=== PATIENT | female | born 1945 | race African-American/Black ===

== ENCOUNTER → 2016-12-28 | Day surgery (SDC) | payer MEDICARE, OTHER ==
[~2016-12-28] MED LIST: CARV6.25 PO; CARV6.252 PO; CHOL5000 PO; CIPR250T2 PO; ECOT81TA2 PO; EMOLLOT TOPICAL; GABA400 PO; GEOD80CA PO; LACT20SO4 PO; LACTATED RINGER'S 1000 ML INJ 1,000 ML ONE; LIDOCAINE 1%/EPINEPHrine 1:100,000 SOLN 30 ML VIAL ONE; LISI10 PO; LISI10TA3 PO; NEUR400C; NIFE60TA8 PO; OMEP10CA; OMEP20TA39 PO; ONDANSETRON HCL 4 MG/2 ML VIAL IV PUSH ONE; PROPOFOL 200 MG/20 ML AMP IV ONE; ZIPR1CAP12; ceFAZolin 2 GM PREMIX 50 ML ONE
--- NOTE | 2016-12-28 12:25 | TN ---
cc: MARIANNE RICHARDSON M.D. DATE OF SURGERY: 12/28/2016 PREOPERATIVE DIAGNOSIS 1. Right breast mammographic microcalcifications. 2. History of left breast cancer. POSTOPERATIVE DIAGNOSIS 1. Right breast mammographic microcalcifications. 2. History of left breast cancer. PROCEDURE Right breast needle-localized lumpectomy. SURGEON Dr. Marianne Richardson ANESTHESIA General with laryngeal mask. 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 She was found to have new clustered microcalcifications which were indeterminate in the right breast. They were unable to perform stereotactic biopsy due to the proximity of the microcalcifications to her skin. Right breast needle-localized lumpectomy was recommended. INTRAOPERATIVE FINDINGS Successful removal of microcalcifications as seen on specimen mammography. Short stitch was placed at the superior anterior border of the specimen and a long stitch in the lateral posterior border. ESTIMATED BLOOD LOSS Minimal. DESCRIPTION OF PROCEDURE IN DETAIL The patient was identified as Shirlene Mackenzie, taken to the operating room and placed in supine position following needle localization of the right breast. Sequential compression devices were placed on bilateral lower extremities. Following induction of adequate general anesthesia with a laryngeal mass the right breast was prepped and draped in the usual sterile fashion with Betadine. The proposed superior periareolar incision was made with a marking pen. A timeout procedure was performed. Following completion of the timeout procedure to everyone's satisfaction within the room, 1% lidocaine with epinephrine was injected for local anesthetic. The incision was carried out with a scalpel. Hemostasis was controlled with electrocautery. Dissection continued posteriorly and superiorly towards the localization needle at the level of the skin entry. The localization needle was divided at the level of the skin, brought in the surgical wound. A generous portion of breast tissue was removed surrounding the localization needle, marked with a silk suture and sent for imaging as discussed above. The wound was irrigated copiously with saline. Bleeding points were controlled with electrocautery. Once the wound was ensured to be dry, the remaining local anesthetic was placed within the wound and the wound was closed using 3-0 Vicryl within the breast tissue and in the subcutaneous tissue and then 4-0 Monocryl in a subcuticular position in the skin. Dressings were applied with Mastisol, half-inch brown Steri-Strips, gauze and Tegaderm. Dr. Miller had called indicating the microcalcifications of concern were within the specimen and the specimen was sent to pathology. MD CAIT Gil/CHIO /12:06 PM /12:16 PM
== END | disposition home or self-care (01) ==
LOC: ESDC 08:56
PROVIDERS: ATTEND Surgery Trauma Surgery
DX: D24.1 Benign neoplasm of right breast (principal); Z85.3 Personal history of malignant neoplasm of breast
CPT/HCPCS: 00400; 19125; 88307; J0690; J2405; J3010; J7120

== ENCOUNTER 2017-03-29 18:54 | Inpatient (IN) | payer MEDICARE, MEDICAID ==
[~2017-03-29] VITALS: Ht 165.1 cm; Wt 68.0 kg
[~2017-03-29 18:54] MED LIST changes: -CARV6.252 PO; -CHOL5000 PO; -EMOLLOT TOPICAL; -LACTATED RINGER'S 1000 ML INJ 1,000 ML ONE; -LIDOCAINE 1%/EPINEPHrine 1:100,000 SOLN 30 ML VIAL ONE; -LISI10TA3 PO; -NEUR400C; -NIFE60TA8 PO; -OMEP10CA; -ONDANSETRON HCL 4 MG/2 ML VIAL IV PUSH ONE; -PROPOFOL 200 MG/20 ML AMP IV ONE; -ZIPR1CAP12; -ceFAZolin 2 GM PREMIX 50 ML ONE
[2017-03-29 18:55] VITALS: BP 166/93; PULSE 80; RESP 18; TEMP 98.3; O2SAT 96
[2017-03-29] MEDS ORDERED: SODIUM CHLOR 0.9% 1000 ML INJ 1,000 ML IV SCH (18:58)
[2017-03-29] MEDS ORDERED: SODIUM CHLORIDE 0.9% FLUSH 5 ML FLUSH IV FLUSH PRN (19:00)
[2017-03-29 19:04] VITALS: O2SAT 96
--- NOTE | 2017-03-29 19:05 | PD ---
HPI Chief Complaint: Altered Mental Status Time Seen by Provider: 18:58 Travel History International Travel<30 days: No Contact w/Intl Traveler<30days: No Traveled to known affect area: No History of Present Illness HPI 71 year-old woman, presents to the emergency department brought in by EMS for altered mental status. Patient was reportedly found down at home, altered. Last seen normal around 11 AM. Patient's been confused, GCS about 13, complaining of pain in her legs. No other history is available. History Past Medical History Narrative Medical Review previous records shows a history of: Rheumatoid arthritis Psychosis, psychiatric disease Breast cancer, left mastectomy Hypertension GERD Menopausal: Yes Social History Alcohol Use: No Tobacco Use: Yes (11/02 PPD) Allergies-Medications (Allergen,Severity, Reaction): Coded Allergies: No Known Allergies (Verified , 07/07/16) Reported Meds & Prescriptions Reported Meds & Active Scripts Active Ciprofloxacin Hcl (Ciprofloxacin HCl) 250 Mg Tab 500 Mg PO BID 3 Days Prinivil 10 mg (Lisinopril) 10 Mg Tab 10 Mg PO DAILY 30 Days Coreg 6.25 mg (Carvedilol) 6.25 Mg Tab 12.5 Mg PO BID Ecotrin (Aspirin) 81 Mg Tabec 81 Mg PO DAILY Reported Lactulose 30 Ml Syrp 15 Ml PO QID Geodon (Ziprasidone) 80 Mg Cap 80 Mg PO BID Hm Omeprazole (Omeprazole) 20 Mg Tab 20 Mg PO BID Neurontin (Gabapentin) 400 Mg Cap 400 Mg PO TID Review of Systems ROS Limitations: Clinical Condition Physical Exam Narrative GENERAL: 71 year-old woman, poorly responsive, will answer some questions, consider eyes closed. SKIN: Focused skin assessment warm/dry. Decreased skin turgor. HEAD: No evidence of trauma.. EYES: Pupils equal and round. No scleral icterus. No injection or drainage. ENT: No nasal bleeding or discharge. Mucous membranes pink and moist. NECK: Trachea midline. No JVD. CARDIOVASCULAR: Regular rate and rhythm. No murmur appreciated. RESPIRATORY: No accessory muscle use. Clear to auscultation. Breath sounds equal bilaterally. GASTROINTESTINAL: Abdomen is a little bit distended but soft, no grimace to deep palpation or evidence of tenderness. MUSCULOSKELETAL: No obvious deformities. No edema. NEUROLOGICAL: Decreased alertness, eyes cold, no obvious facial asymmetry. Moves all extremities. Motor tones a little bit increased throughout. No tremor. Speech is slow but not obviously dysarthric or aphasic. Data Data Last Documented VS Vital Signs Date Time Temp Pulse Resp B/P Pulse Ox O2 Delivery O2 Flow Rate FiO2 03/29/17 18:55 80 18 166/93 96 MDM Medical Decision Making Medical Screen Exam Complete: Yes Emergency Medical Condition: Yes Differential Diagnosis Stroke, infection, bleed, dehydration, overdose, other Narrative Course Medical decision making INITIAL: 71-year-old presents emergent part altered mental status, being found down. EMS reports patient is normally ambulatory, oriented, and now is confused and unable to walk. Was last seen normal about 8 hours ago. Review of records shows a history of psychiatric disease, with dementia and confusion in the past. She has a history of breast cancer status post mastectomy. She's had pancytopenia before. We'll check labs, CT, x-ray, ABG, IV fluid resuscitation, likely admission. Patient signed out the oncoming physician at 7 PM for follow-up of diagnostic testing, repeat evaluation and disposition. Marcio Jeronimo MD March 29, 2017 19:05
--- NOTE | 2017-03-29 19:08 | PD ---
Physical Exam Narrative General: The patient is a well-developed well-nourished female who arrives in no acute distress. The patient has garbled speech on initial evaluation and is drowsy. The patient has poor dentition which could be affecting her speech. The patient does on my arrival to the room reports that she has right ankle pain. She reports that she fell 2 days ago. Head and Neck exam: Head is normocephalic atraumatic. Eyes: The patient is uncooperative with extraocular motion testing. The patient 's pupils are 1-2 mm bilaterally. Nose: Midline septum with pink mucous membranes Mouth: Dentition unremarkable. Moist mucus membranes. Posterior oropharynx is not erythematous. No tonsillar hypertrophy. Uvula midline. Airway patent. Neck: No palpable lymphadenopathy. No nuchal rigidity. No thyromegaly. Cardiovascular: Regular rate and rhythm without murmurs, gallops, or rubs. Lungs: Clear to auscultation bilaterally. No wheezes, rhonchi, or rales. Abdomen: Soft, without tenderness to palpation in all 4 quadrants of the abdomen. No guarding, rebound, or rigidity. Normal bowel sounds are audible. No tenderness on palpation of McBurney's point. Extremities: No clubbing or cyanosis. The patient has trace pedal edema on the left, 1+ on the right with tenderness on palpation of the distal medial and lateral malleolus. There is no crepitus on palpation. No obvious deformity. No ligament laxity. 2+ pulses in all 4 extremities. Back: No costovertebral angle tenderness to palpation. Neurologic Exam: The patient is drowsy on examination. The patient is uncooperative with formal neurologic testing. The patient has no obvious facial asymmetry. The patient is able to move all extremities equally without any focal findings. Skin Exam: No rash noted. Intact skin that is warm and dry. Data Data Last Documented VS Vital Signs Date Time Temp Pulse Resp B/P Pulse Ox O2 Delivery O2 Flow Rate FiO2 03/29/17 19:04 96 Room Air 03/29/17 18:55 98.3 80 18 166/93 Orders Electrocardiogram (03/29/17 18:58) Complete Blood Count With Diff (03/29/17 18:58) Comprehensive Metabolic Panel (03/29/17 18:58) Prothrombin Time / Inr (Pt) (03/29/17 18:58) Act Partial Throm Time (Ptt) (03/29/17 18:58) Troponin I (03/29/17 18:58) Thyroid Stimulating Hormone (03/29/17 18:58) Urinalysis - C+S If Indicated (03/29/17 18:58) Lactic Acid Sepsis Protocol (03/29/17 18:58) Blood Culture (03/29/17 18:58) Chest, Single Ap (03/29/17 18:58) Ct Brain W/O Iv Contrast(Rout) (03/29/17 18:58) Blood Glucose (03/29/17 18:58) Ecg Monitoring (03/29/17 18:58) Iv Access Insert/Monitor (03/29/17 18:58) Oximetry (03/29/17 18:58) Urinary Catheter Insert/Apply (03/29/17 18:58) Sodium Chloride 0.9% Flush (Ns Flush) (03/29/17 19:00) Sodium Chlor 0.9% 1000 Ml Inj (Ns 1000 M (03/29/17 18:58) Arterial Blood Gas (Abg) (03/29/17 ) Creatine Kinase (Cpk) (03/29/17 19:02) Pelvis, Ap Only (Routine) (03/29/17 ) Ankle, Complete ([id number]) (03/29/17 19:17) Alcohol (Ethanol) (03/29/17 21:17) Admit Order (Ed Use Only) (03/29/17 21:20) Labs Laboratory Tests Test 03/29/17 03/29/17 19:13 19:37 White Blood Count 3.2 TH/MM3 Red Blood Count 3.83 MIL/MM3 Hemoglobin 11.7 GM/DL Hematocrit 35.6 % Mean Corpuscular Volume 93.0 FL Mean Corpuscular Hemoglobin 30.6 PG Mean Corpuscular Hemoglobin 33.0 % Concent Red Cell Distribution Width 14.8 % Platelet Count 199 TH/MM3 Mean Platelet Volume 7.5 FL Neutrophils (%) (Auto) 72.6 % Lymphocytes (%) (Auto) 19.6 % Monocytes (%) (Auto) 4.6 % Eosinophils (%) (Auto) 2.8 % Basophils (%) (Auto) 0.4 % Neutrophils # (Auto) 2.3 TH/MM3 Lymphocytes # (Auto) 0.6 TH/MM3 Monocytes # (Auto) 0.1 TH/MM3 Eosinophils # (Auto) 0.1 TH/MM3 Basophils # (Auto) 0.0 TH/MM3 CBC Comment DIFF FINAL Differential Comment Prothrombin Time 10.9 SEC Prothromb Time International 1.0 RATIO Ratio Activated Partial 27.2 SEC Thromboplast Time Urine Color LIGHT-YELLOW Urine Turbidity CLEAR Urine pH 6.5 Urine Specific [place] 1.009 Urine Protein 30 mg/dL Urine Glucose (UA) 70 mg/dL Urine Ketones NEG mg/dL Urine Occult Blood NEG Urine Nitrite NEG Urine Bilirubin NEG Urine Urobilinogen LESS THAN 2.0 MG/DL Urine Leukocyte Esterase NEG Urine RBC 1 /hpf Urine WBC 1 /hpf Urine Mucus FEW /lpf Microscopic Urinalysis Comment CATH-CULT NOT IND Sodium Level 139 MEQ/L Potassium Level 3.0 MEQ/L Chloride Level 106 MEQ/L Carbon Dioxide Level 25.0 MEQ/L Anion Gap 8 MEQ/L Blood Urea Nitrogen 11 MG/DL Creatinine 0.99 MG/DL Estimat Glomerular Filtration 67 ML/MIN Rate Random Glucose 189 MG/DL Lactic Acid Level 2.5 mmol/L Calcium Level 8.2 MG/DL Total Bilirubin 0.2 MG/DL Aspartate Amino Transf 21 U/L (AST/SGOT) Alanine Aminotransferase 16 U/L (ALT/SGPT) Alkaline Phosphatase 110 U/L Total Creatine Kinase 175 U/L Troponin I LESS THAN 0.02 NG/ML Total Protein 7.9 GM/DL Albumin 3.3 GM/DL Thyroid Stimulating Hormone 0.406 uIU/ML 3rd Gen Ethyl Alcohol Level LESS THAN 3 MG/DL Urine Opiates Screen NEG Urine Barbiturates Screen NEG Urine Amphetamines Screen NEG Urine Benzodiazepines Screen NEG Urine Cocaine Screen NEG Urine Cannabinoids Screen NEG Blood Gas Puncture Site RT RADIAL Blood Gas Patient Temperature 98.6 Blood Gas HCO3 23 mmol/L Blood Gas Base Excess -0.9 mmol/L Blood Gas Oxygen Saturation 92 % Arterial Blood pH 7.39 Arterial Blood Partial 39 mmHg Pressure CO2 Arterial Blood Partial 77 mmHG Pressure O2 Arterial Blood Oxygen Content 14.3 Vol % Arterial Blood 2.3 % Carboxyhemoglobin Arterial Blood Methemoglobin 0.7 % Blood Gas Hemoglobin 10.9 G/DL Oxygen Delivery Device [facility] Medical Record Reviewed: Yes Supervised Visit with [facility]: No Interpretation(s) Last Impressions Ankle X-Ray 03/29/[id number] Signed Impressions: Service Date/Time: Wednesday, March 29, 2017 19:23 - CONCLUSION: 1. Mild soft tissue swelling involving the medial and lateral malleoli. 2. No acute fracture or dislocation. 3. Plantar calcaneal spur. Kashif Varela MD Head CT 03/29/171857 Signed Impressions: Service Date/Time: Wednesday, March 29, 2017 20:21 - CONCLUSION: 1. Ventriculomegaly suggesting moderate central cerebral atrophy versus hydrocephalus,. Clinical correlation is recommended. 2. Moderate periventricular and subcortical white matter small vessel ischemic changes bilaterally. 3. No acute infarct, acute hemorrhage, mass effect or extra- axial fluid collections. Kashif Varela MD Chest X-Ray 03/29/171857 Signed Impressions: Service Date/Time: Wednesday, March 29, 2017 19:06 - CONCLUSION: 1. Mild cardiomegaly. 2. No acute focal pulmonary infiltrate or pulmonary vascular congestion. 3. Degenerative changes and scoliosis of the thoracic spine. Kashif Varela MD Pelvis X-Ray 03/29/17 0000 Signed Impressions: Service Date/Time: Wednesday, March 29, 2017 19:16 - CONCLUSION: 1. No acute fracture or dislocation of the bony pelvis. 2. Degenerative changes and scoliosis of the lumbar spine. Kashif Varela MD Lower Extremity Ultrasound 03/29/17 0000 Signed Impressions: Service Date/Time: Wednesday, March 29, 2017 23:41 - CONCLUSION: Normal examination. Cameron Angelo MD Narrative Course During the course of the patients emergency department visit, the patients history, examination, and differential diagnosis were reviewed with the patient. The patient had IV access obtained and blood work sent for analysis. The patient's case was checked out to me by Dr. Jeronimo at the conclusion of his shift. The patient was placed on a teletypesetter monitor with oximetry and blood pressure monitoring. An EKG was done on arrival. The patient's EKG shows a sinus rhythm heart rate is 70, QRS duration is 97 ms, QTc is [address]-T wave abnormalities, T-wave inversions in leads V1, V2, V3. No acute ST segment elevation is noted. The patient was initially provided normal saline a 1 L IV fluid bolus. The patients laboratory studies were reviewed and remarkable for an ABG on arrival that shows a pH of 7.392, PCO2 39.3, PO2 76.8 with a bicarbonate 23.4, base excess -0.9, hemoglobin 10.9. Radiology studies were reviewed and remarkable for a right ankle x-ray this is soft tissue swelling, no acute bony abnormality, pelvic x-ray shows no acute bony abnormality, chest x-ray shows cardiomegaly no other acute abnormality, CT scan of the brain shows ventriculomegaly, which could be related to cortical atrophy, versus normal pressure hydrocephalus. Given the patient's altered mentation and neurology consultation will be placed as an inpatient. The patients results were discussed with the patient, including the plan of care. I explained that further testing and/ or monitoring is indicated based on the patients history, examination, and/ or laboratory findings. Therefore, I recommended admission for additional evaluation. The patient expressed understanding and was agreeable with this plan. The patient was admitted to the hospital in stable condition and sent to a bed under the care of the [facility]. Physician Communication Physician Communication The patient's case was discussed with Dr. Gomez who did agree to admit the patient for further evaluation and treatment at this time. Diagnosis Primary Impression: Altered mental status Qualified Code: R41.0 - Disorientation Admitting Information Admitting Physician Requests: Admit Scripts Unable to Obtain Active Prescriptions or Reported Meds Magalys Hill MD March 29, 2017 19:08
[2017-03-29 19:33] LABS: AUTOMATED NEUTROPHIL # 2.3 TH/MM3 (1.8-7.7); BASOPHIL % 0.4 % (0.0-2.0); EOSINOPHIL # 0.1 TH/MM3 (0-0.4); EOSINOPHIL % 2.8 % (0.0-4.0); HEMATOCRIT 35.6 % (35.0-46.0); HEMO FLAGS DIFF FINAL; LYMPH % 19.6 % (9.0-44.0); LYMPHOCYTE # 0.6 TH/MM3 (1.0-4.8); MEAN CORPUSCULAR HEMOGLOBIN 30.6 PG (27.0-34.0); MONO % 4.6 % (0.0-8.0); NEUT % 72.6 % (16.0-70.0); PLATELET COUNT 199 TH/MM3 (150-450); RED BLOOD COUNT 3.83 MIL/MM3 (4.00-5.30); RED CELL DISTRIBUTION WIDTH 14.8 % (11.6-17.2); WHITE BLOOD COUNT 3.2 TH/MM3 (4.0-11.0)
[2017-03-29 19:43] LABS: BLOOD GAS BASE EXCESS -0.9 mmol/L (-2-2); BLOOD GAS CARBOXYHEMOGLOBIN 2.3 % (0-4); BLOOD GAS HCO3 23 mmol/L (22-26); BLOOD GAS METHEMOGLOBIN 0.7 % (0-2); BLOOD GAS O2 HGB SATURATION 92 % (90-100); BLOOD GAS OXYGEN CONTENT 14.3 Vol % (12.0-20.0); BLOOD GAS PCO2 39 mmHg (38-42); BLOOD GAS PO2 77 mmHG (61-120); BLOOD GAS TOTAL HGB 10.9 G/DL (12.0-16.0); CRITICAL VALUE NO; DRAW SITE RT RADIAL; NUMBER OF ARTERIAL PUNCTURES 1; OXYGEN DEVICE ROOM AIR; STAT YES; TEMP CORR TO 98.6; ULNAR PULSE PRESENT
[2017-03-29 19:46] LABS: APTT (PATIENT) 27.2 SEC (24.3-30.1); PROTHROMBIN TIME - PATIENT 10.9 SEC (9.8-11.6)
[2017-03-29 19:52] LABS: ANION GAP 8 MEQ/L (5-15); AST (GOT) 21 U/L (15-37); BLOOD UREA NITROGEN 11 MG/DL (7-18); CHLORIDE 106 MEQ/L (98-107); GLOMERULAR FILTRATION RATE 67 ML/MIN (>89); SODIUM (NA) 139 MEQ/L (136-145)
[2017-03-29 19:55] LABS: BLOOD, URINE NEG (NEG); GLUCOSE,URINE 70 mg/dL (NEG); KETONE, URINE NEG (NEG); MUCUS URINE FEW /lpf (OCC); NITRITE,URINE NEG (NEG); PH, URINE 6.5 (5.0-8.5); URINE COLOR LIGHT-YELLOW (YELLW/STRAW)
[2017-03-29 19:56] LABS: COMMENT (UR) CATH-CULT NOT IND; CULTURE IF INDICATED CATH CULTURE NOT IND
[2017-03-29 20:02] LABS: ALKALINE PHOSPHATASE 110 U/L (45-117); ALT (GPT) 16 U/L (10-53); TOTAL BILIRUBIN ADULT 0.2 MG/DL (0.2-1.0)
--- NOTE | 2017-03-29 20:22 | RADRPT ---
EXAM DATE/TIME: 03/29/2017 19:06 [facility] COMPARISON: CHEST SINGLE AP, July 07, 2016, 10:47. INDICATIONS : Fall. MEDICAL HISTORY : None. SURGICAL HISTORY : None. ENCOUNTER: Initial ACUITY: 1 day PAIN SCORE: 0/10 LOCATION: Bilateral chest FINDINGS: The heart is mildly enlarged. The pulmonary vascular pattern is normal. The lungs are clear. Degen erative changes and scoliosis of the thoracic spine are noted. CONCLUSION: 1. Mild cardiomegaly. 2. No acute focal pulmonary infiltrate or pulmonary vascular congestion. 3. Degenerative changes and scoliosis of the thoracic spine. Kashif Varela MD on March 29, 2017 at 20:16 Board Certified Radiologist. This report was verified electronically.
--- NOTE | 2017-03-29 20:23 | RADRPT ---
EXAM DATE/TIME: 03/29/2017 19:16 [facility] COMPARISON: PELVIS AP ONLY, July 07, 2016, 10:51. INDICATIONS : Fall. MEDICAL HISTORY : None. SURGICAL HISTORY : None. ENCOUNTER: Initial ACUITY: 1 day PAIN SCORE: 0/10 LOCATION: Bilateral pelvis FINDINGS: There is no acute fracture or dislocation of the bony pelvis. Old healed fractures of the left infer ior and superior pubic rami are noted. Degenerative changes and scoliosis of the lumbar spine are no rod. CONCLUSION: 1. No acute fracture or dislocation of the bony pelvis. 2. Degenerative changes and scoliosis of the lumbar spine. Kashif Varela MD on March 29, 2017 at 20:17 Board Certified Radiologist. This report was verified electronically.
--- NOTE | 2017-03-29 20:25 | RADRPT ---
EXAM DATE/TIME: 03/29/2017 19:23 [facility] COMPARISON: No previous studies available for comparison. INDICATIONS : Fall. MEDICAL HISTORY : None. SURGICAL HISTORY : None. ENCOUNTER: Initial ACUITY: 1 day PAIN SCORE: 0/10 LOCATION: Right ankle FINDINGS: Mild soft tissue swelling is noted involving the medial and lateral malleoli. There is no acute frac ture or dislocation. Plantar calcaneal spur is noted. CONCLUSION: 1. Mild soft tissue swelling involving the medial and lateral malleoli. 2. No acute fracture or dislocation. 3. Plantar calcaneal spur. Kashif Varela MD on March 29, 2017 at 20:19 Board Certified Radiologist. This report was verified electronically.
--- NOTE | 2017-03-29 20:36 | RADRPT ---
EXAM DATE/TIME: 03/29/2017 20:21 [facility] COMPARISON: MRI BRAIN W/O CONTRAST, July 08, 2016, 10:34. CT BRAIN W/O CONTRAST, July 07, 2016, 11:05. INDICATIONS : Altered mental status. RADIATION DOSE: 37.53 CTDIvol (mGy) MEDICAL HISTORY : Cardiovascular disease. Hypertension. Carcinoma, breast. SURGICAL HISTORY : None. ENCOUNTER: Initial ACUITY: 1 day PAIN SCALE: 5/10 LOCATION: Bilateral abdomen. TECHNIQUE: Multiple contiguous axial images were obtained of the head. Using automated exposure control and adj ustment of the mA and/or kV according to patient size, radiation dose was kept as low as reasonably a chievable to obtain optimal diagnostic quality images. FINDINGS: The ventricles remain prominent consistent with central cerebral atrophy versus hydrocephalus. Moderate periventricular and subcortical white matter small vessel ischemic changes a re again noted. There is no acute hemorrhage, acute infarct, mass effect or extra-axial fluid collec tions. The bone windows are unremarkable. CONCLUSION: 1. Ventriculomegaly suggesting moderate central cerebral atrophy versus hydrocephalus,. Clinical cor relation is recommended. 2. Moderate periventricular and subcortical white matter small vessel ischemic changes bilaterally. 3. No acute infarct, acute hemorrhage, mass effect or extra-axial fluid collections. Kashif Varela MD on March 29, 2017 at 20:28 Board Certified Radiologist. This report was verified electronically.
[2017-03-29 21:25] LABS: LACTIC ACID GHOST NOT REPORTABLE
[2017-03-29] MEDS ORDERED: POTASSIUM CHLORIDE 25 MEQ EFFERVESCENT TAB PO ONE (21:45)
[2017-03-29] MEDS ORDERED: NALOXONE HCL 0.4 MG/ML AMP IV PRN (21:45)
[2017-03-29 22:02] VITALS: BP 147/81; PULSE 60; RESP 16; O2SAT 98
--- NOTE | 2017-03-29 22:23 | HHI.HP ---
[facility] Unknown Admission Diagnosis AMS, ventriculomegaly Diagnoses: Chief Complaint: AMS, fall Travel History International Travel<30 Days: No Contact w/Intl Traveler <30 Da: No Traveled to Known Affected Are: No History of Present Illness Written by Marixa Manuel, acting as scribe for Dr. Gomez on 03/29/17 at 22: 23. This is a 71 year old female patient with a past medical history which includes : rheumatoid arthritis, lupus, anxiety/depression/psychiatric illness on [facility] , breast cancer s/p left mastectomy, HTN, GERD, neuropathy. Patient is alert and oriented to person and place only, poor historian. Information gathered from patient as well as prior charting. Patient reports her sister brought her to the hospital because she wasn't doing well, but unable to elaborate. Per ER report patient's sister found her on the floor noted to be confused. Patient does not recall being on the floor. Does not recall falling. Per ER documentation patient was last seen normal around 11 AM 03/29/17. Patient denies chest pain, SOB, N/V/D, fevers, chill, cough congestion, blood in stool, increased urinary frequency, dysuria. Glucose upon arrival 189. Patient notes to be drowsy drifting off to sleep through out H&P process Review of Systems ROS Limitations: Poor Historian Except as stated in HPI: all other systems reviewed are Neg Past Family Social History Past Medical History Obtained from EMR: rheumatoid arthritis lupus anxiety/depression/psychiatric illness on [facility] breast cancer s/p left mastectomy GERD neuropathy HTN Breast cancer Past Surgical History Left breast mastectomy hernia repair with mesh Reported Medications Active Prescriptions or Reported Medications Unobtainable Allergies: Coded Allergies: No Known Allergies (Verified , 03/29/17) Active Ordered Medications Current Medications Medications (Trade) Dose Ordered Sig/Angela Route Start Time Stop Time Status Last Admin (NS Flush) 2 ml UNSCH PRN IV FLUSH 03/29/17 21:45 (NS Flush) 2 ml BID IV FLUSH 03/30/17 09:00 (Narcan Inj) 0.4 mg UNSCH PRN IV 03/29/17 21:45 Family History Reviewed, patient denies any significant medical history in the family Social History Lives with her sister Smokes tobacco since her 20s, 1/2 PPD Denies alcohol or illicit drug use Physical Exam Vital Signs Vital Signs Date Time Temp Pulse Resp B/P Pulse Ox O2 Delivery O2 Flow Rate FiO2 03/29/17 22:02 60 16 147/81 98 Nasal Cannula 2 03/29/17 19:04 96 Room Air 03/29/17 18:55 98.3 80 18 166/93 96 Physical Exam GENERAL: This is a well-nourished, well-developed patient, A& O to person and place only drowsy drifts off to sleep during H&P process HEAD: Atraumatic. Normocephalic. No temporal or scalp tenderness. EYES: Extraocular motions intact. No scleral icterus. No injection or drainage. CARDIOVASCULAR: Regular rate and rhythm without murmurs, gallops, or rubs. RESPIRATORY: Clear to auscultation. Breath sounds equal bilaterally. No wheezes , rales, or rhonchi. GASTROINTESTINAL: Abdomen soft, non-tender, nondistended. No guarding. MUSCULOSKELETAL: No calf tenderness. Negative Homans sign bilaterally. Right ankle edema medial malleolus area. R calk trace edema >L NEUROLOGICAL: Able to awoke to voice, oriented to person and place only. Drifts to sleep during interview process. Motor and sensory grossly within normal limits. 4 out of 5 muscle strength in all muscle groups. soft speech. Laboratory Laboratory Tests Test 03/29/17 03/29/17 03/29/17 19:13 19:37 21:29 White Blood Count 3.2 Red Blood Count 3.83 Hemoglobin 11.7 Hematocrit 35.6 Mean Corpuscular Volume 93.0 Mean Corpuscular Hemoglobin 30.6 Mean Corpuscular Hemoglobin 33.0 Concent Red Cell Distribution Width 14.8 Platelet Count 199 Mean Platelet Volume 7.5 Neutrophils (%) (Auto) 72.6 Lymphocytes (%) (Auto) 19.6 Monocytes (%) (Auto) 4.6 Eosinophils (%) (Auto) 2.8 Basophils (%) (Auto) 0.4 Neutrophils # (Auto) 2.3 Lymphocytes # (Auto) 0.6 Monocytes # (Auto) 0.1 Eosinophils # (Auto) 0.1 Basophils # (Auto) 0.0 CBC Comment DIFF FINAL Differential Comment Prothrombin Time 10.9 Prothromb Time International 1.0 Ratio Activated Partial 27.2 Thromboplast Time Urine Color LIGHT-YELLOW Urine Turbidity CLEAR Urine pH 6.5 Urine Specific Davidson 1.009 Urine Protein 30 Urine Glucose (UA) 70 Urine Ketones NEG Urine Occult Blood NEG Urine Nitrite NEG Urine Bilirubin NEG Urine Urobilinogen LESS THAN 2.0 Urine Leukocyte Esterase NEG Urine RBC 1 Urine WBC 1 Urine Mucus FEW Microscopic Urinalysis Comment CATH-CULT NOT IND Sodium Level 139 Potassium Level 3.0 Chloride Level 106 Carbon Dioxide Level 25.0 Anion Gap 8 Blood Urea Nitrogen 11 Creatinine 0.99 Estimat Glomerular Filtration 67 Rate Random Glucose 189 Lactic Acid Level 2.5 2.5 Calcium Level 8.2 Total Bilirubin 0.2 Aspartate Amino Transf 21 (AST/SGOT) Alanine Aminotransferase 16 (ALT/SGPT) Alkaline Phosphatase 110 Total Creatine Kinase 175 Troponin I LESS THAN 0.02 Total Protein 7.9 Albumin 3.3 Thyroid Stimulating Hormone 0.406 3rd Gen Blood Gas Puncture Site RT RADIAL Blood Gas Patient Temperature 98.6 Blood Gas HCO3 23 Blood Gas Base Excess -0.9 Blood Gas Oxygen Saturation 92 Arterial Blood pH 7.39 Arterial Blood Partial 39 Pressure CO2 Arterial Blood Partial 77 Pressure O2 Arterial Blood Oxygen Content 14.3 Arterial Blood 2.3 Carboxyhemoglobin Arterial Blood Methemoglobin 0.7 Blood Gas Hemoglobin 10.9 Oxygen Delivery Device ROOM AIR Date/Time Procedure Status Source Growth 03/29/17 19:10 Aerobic Blood Culture Received Blood Peripheral Pending 03/29/17 19:10 Anaerobic Blood Culture Received Blood Peripheral Pending Result Diagram: 03/29/17191203/29/171912 Imaging Last Impressions Ankle X-Ray 03/29/171916 Signed Impressions: Service Date/Time: Wednesday, March 29, 2017 19:23 - CONCLUSION: 1. Mild soft tissue swelling involving the medial and lateral malleoli. 2. No acute fracture or dislocation. 3. Plantar calcaneal spur. Kashif Varela MD Head CT 03/29/171857 Signed Impressions: Service Date/Time: Wednesday, March 29, 2017 20:21 - CONCLUSION: 1. Ventriculomegaly suggesting moderate central cerebral atrophy versus hydrocephalus,. Clinical correlation is recommended. 2. Moderate periventricular and subcortical white matter small vessel ischemic changes bilaterally. 3. No acute infarct, acute hemorrhage, mass effect or extra- axial fluid collections. Kashif Varela MD Chest X-Ray 03/29/17 1858 Signed Impressions: Service Date/Time: Wednesday, March 29, 2017 19:06 - CONCLUSION: 1. Mild cardiomegaly. 2. No acute focal pulmonary infiltrate or pulmonary vascular congestion. 3. Degenerative changes and scoliosis of the thoracic spine. Kashif Varela MD Pelvis X-Ray 03/29/17 0000 Signed Impressions: Service Date/Time: Wednesday, March 29, 2017 19:16 - CONCLUSION: 1. No acute fracture or dislocation of the bony pelvis. 2. Degenerative changes and scoliosis of the lumbar spine. Kashif Varela MD Assessment and Plan Problem List: (1) Altered mental status ICD Code: R41.82 Status: Acute Assessment and Plan This is a 71 year old female patient with a past medical history which includes : rheumatoid arthritis, lupus, anxiety/depression/psychiatric illness on [facility] , breast cancer s/p left mastectomy, HTN, GERD, neuropathy. Patient is alert and oriented to person and place only, poor historian. Information gathered from patient as well as prior charting. Patient reports her sister brought her to the hospital because she wasn't doing well, but unable to elaborate. Per ER report patient's sister found her on the floor noted to be confused. Patient does not recall being on the floor. AMS unknown etiology possible medication reaction vs Ventriculomegaly/ hydrocephalus CT head reviewed and reveals: 1. Ventriculomegaly suggesting moderate central cerebral atrophy versus hydrocephalus,. Clinical correlation is recommended. 2. Moderate periventricular and subcortical white matter small vessel ischemic changes bilaterally. 3. No acute infarct, acute hemorrhage, mass effect or extra-axial fluid collections. MRI brain 07/2016 showed no evidence of acute intracranial pathology. 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 Mild calcific atherosclerotic disease right carotid bifurcation out significant stenosis. Dominant right vertebral artery. No evidence of admission stenotic lesions 2-D cardiac echocardiogram October 2015: Estimated ejection fraction was 60 % wall motion was normal there were no regional wall motion abnormalities. Aortic valve mildly calcified annulus trileaflet and mildly thickened leaflets. Mitral valve while the calcified annulus. Mother thickened leaflets. Pulmonary arteries. Peak pressure 31 mmHg Serial neuro checks Continuous telemetry monitoring EtOH level and toxicology screen pending Initial ABG reviewed and reveals: PH 7.39, PCO2 39, PO2 77, bicarbonate 23, base excess -0.9 on room air Repeat ABG pending Right lower extremity Edema greater than left US bilateral lower extremities to rule out DVT Right ankle pain with edema Right ankle x-ray reviewed and reveals mild soft tissue swelling involving the medial and lateral malleoli. No acute fracture dislocation. Plantar calcaneal spur Hypokalemia potassium 3.0 Replaced in ED recheck in a.m. Lactic acid elevated 2.5 Blood cell count 3.2 neutrophils 72.6% Urinalysis reviewed reveals hyper chain I urine glucose negative nitrates negative leukocyte esterase no culture indicated Chest x-ray reviewed and reveals: Mild cardiomegaly. No acute focal pulmonary infiltrate or pulmonary vascular congestion. Degenerative changes and scoliosis of the thoracic spine. Patient is afebrile Blood cultures obtained and pending Hypertension chronic Monitor blood pressure trend Request RN to complete med reconciliation DVT prophylaxis awaiting results of bilateral lower extremity ultrasound to rule out DVT Discussed with ER physician, nursing and patient This note was transcribed by [email or web address] [Faviola Manuel]. I, Dr. Danette Gomez personally performed the history, physical exam, and medical decision making; and confirmed the accuracy of the information in the transcribed note. Authenticated by Dr. Danette Gomez on 03/29/17 at 22:23. Problem Qualifiers (1) Altered mental status: Qualified Code: R41.0 - Disorientation Marixa Manuel March 29, 2017 22:23 Danette Gomez MD March 30, 2017 06:41
[2017-03-29 22:58] VITALS: BP 189/93; PULSE 61; RESP 18; TEMP 98.4; O2SAT 100
[2017-03-29 23:39] LABS: BLOOD GAS CARBOXYHEMOGLOBIN 1.6 % (0-4); BLOOD GAS HCO3 25 mmol/L (22-26); BLOOD GAS METHEMOGLOBIN 0.7 % (0-2); BLOOD GAS O2 HGB SATURATION 96 % (90-100); BLOOD GAS OXYGEN CONTENT 15.7 Vol % (12.0-20.0); BLOOD GAS PCO2 44 mmHg (38-42); BLOOD GAS PO2 132 mmHG (61-120); BLOOD GAS TOTAL HGB 11.4 G/DL (12.0-16.0); CRITICAL VALUE NO; DRAW SITE RT RADIAL; LITER FLOW 2.5 L/M; NUMBER OF ARTERIAL PUNCTURES 1; OXYGEN DEVICE NASAL CANNULA; STAT YES; TEMP CORR TO 98.6; ULNAR PULSE PRESENT
[2017-03-30] VITALS (12 sets, daily range): BP systolic 154–218; BP diastolic 63–128; PULSE 68–84; RESP 16–18; TEMP 98–99.6; O2SAT 96–100
--- NOTE | 2017-03-30 00:16 | RADRPT ---
EXAM DATE/TIME: 03/29/2017 23:41 [facility] COMPARISON: No previous studies available for comparison. INDICATIONS : Bilateral leg swelling. MEDICAL HISTORY : Carcinoma, breast. Rheumatoid arthritis. Hypertension. Lupus. GERD. SURGICAL HISTORY : Mastectomy, left. section. Hernia repair. ENCOUNTER: Initial ACUITY: 1 day PAIN SCORE: 0/10 LOCATION: Bilateral leg. TECHNIQUE: Venous ultrasound of the left and right leg was performed from the inguinal ligament to the proximal calf. Real-time, color Doppler and spectral tracing, compression and augmentation techniques were us ed. FINDINGS: RIGHT LEG: There is normal compressibility of the deep venous system from the inguinal region to the proximal ca lf. No echogenic clot is seen in the lumen of the common femoral, femoral, popliteal, and posterior tibial veins. There is a normal response of the venous system to proximal and distal augmentation an d respiration. LEFT LEG: There is normal compressibility of the deep venous system from the inguinal region to the proximal ca lf. No echogenic clot is seen in the lumen of the common femoral, femoral, popliteal, and posterior tibial veins. There is a normal response of the venous system to proximal and distal augmentation an d respiration. CONCLUSION: Normal examination. Cameron Angelo MD on March 30, 2017 at 0:14 Board Certified Radiologist. This report was verified electronically.
[2017-03-30 01:02] LABS: AMPHETAMINE, URINE NEG (NEG); BARBITURATES, URINE NEG (NEG); COCAINE, URINE NEG (NEG)
[2017-03-30 05:53] LABS: AUTOMATED NEUTROPHIL # 2.2 TH/MM3 (1.8-7.7); BASOPHIL % 0.2 % (0.0-2.0); EOSINOPHIL % 0.9 % (0.0-4.0); HEMATOCRIT 35.2 % (35.0-46.0); HEMO FLAGS DIFF FINAL; LYMPH % 37.5 % (9.0-44.0); LYMPHOCYTE # 1.7 TH/MM3 (1.0-4.8); MEAN CELL VOLUME 93.8 FL (80.0-100.0); MEAN CORPUSCULAR HEMOGLOBIN 29.3 PG (27.0-34.0); MEAN CORPUSCULAR HGB CONC 31.2 % (32.0-36.0); NEUT % 48.4 % (16.0-70.0); PLATELET COUNT 194 TH/MM3 (150-450); RED BLOOD COUNT 3.75 MIL/MM3 (4.00-5.30); RED CELL DISTRIBUTION WIDTH 14.8 % (11.6-17.2); WHITE BLOOD COUNT 4.5 TH/MM3 (4.0-11.0)
[2017-03-30 06:08] LABS: BICARBONATE 28.3 MEQ/L (21.0-32.0); POTASSIUM 3.7 MEQ/L (3.5-5.1)
--- NOTE | 2017-03-30 08:20 | EKG ---
Date Performed: 03/29/2017 Time Performed: 19:00:10 PTAGE: 71 years EKG: Sinus rhythm POSSIBLE LEFT ATRIAL ENLARGEMENT BORDERLINE LEFT AXIS DEVIATION POSSIBLE LEFT VENTRICULAR HYPERTROPH Y T-WAVE ABNORMALITY, CONSIDER ANTERIOR ISCHEMIA ABNORMAL ECG PREVIOUS TRACING : 07/07/2016 11.18 Compared to previous tracing, anterior T wave abnormality i s now evident. DOCTOR: Lucas Orta Interpretating Date/Time 03/30/2017 08:19:31
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
--- NOTE | 2017-03-30 08:58 | RADRPT ---
EXAM DATE/TIME: 03/30/2017 08:29 [facility] COMPARISON: No previous studies available for comparison. INDICATIONS : Right knee pain. MEDICAL HISTORY : None. SURGICAL HISTORY : None. ENCOUNTER: Initial ACUITY: 2 weeks PAIN SCORE: 7/10 LOCATION: Right knee FINDINGS: Four view examination of the right knee demonstrates no evidence of fracture or dislocation. There is mild to moderate degenerative changes at the knee joint. Small joint effusion. Bony mineralization is normal. The articular surfaces are intact. The suprapatellar soft tissues have a normal configur ation. CONCLUSION: Mild/moderate primary degenerative arthritis. Wilver Daniels MD on March 30, 2017 at 8:55 Board Certified Radiologist. This report was verified electronically.
[2017-03-30] MEDS ORDERED: LISINOPRIL 5 MG TAB PO SCH (09:00)
[2017-03-30] MEDS: SODIUM CHLORIDE 0.9% FLUSH 10 ML FLUSH IV FLUSH SCH ×2 (09:22→20:59)
[2017-03-30 11:03] LABS: CKMB 5.1 NG/ML (0.5-3.6)
[2017-03-30] MEDS: ENALAPRILAT 1.25 MG/ML VIAL IV PUSH PRN (11:32)
[2017-03-30] MEDS: ACETAMINOPHEN 325 MG TAB PO PRN ×2 (11:34→20:58)
--- NOTE | 2017-03-30 11:35 | RADRPT ---
EXAM DATE/TIME: 03/30/2017 10:49 [facility] COMPARISON: CTA CAROTID ARTERIES W 3D RECON, October 09, 2015, 15:13. US CAROTID ARTERIES, October 08, 2015, 1 2:35. INDICATIONS : Syncope. MEDICAL HISTORY : Hypercholesterolemia. Left breast cancer.Hypertension. GERD. Rheumatoid arthritis. Depression. He adaches. Lupus. Chemotherapy. Radiation therapy. SURGICAL HISTORY : Mastectomy, left. section. Hernia repair. Endoscopy. ENCOUNTER: Initial ACUITY: 1 day PAIN SCORE: 0/10 LOCATION: Bilateral neck PEAK SYSTOLIC VELOCITIES (cm/sec): ICA/CCA RATIO: Right: 1.5 Left: 1.3 ICA: Right: 84 Left: 73 CCA: Right: 57 Left: 57 ECA: Right: 38 Left: 114 VERTEBRAL: Right: 71 antegrade Left: 27 antegrade Elevated flow velocities and ICA/CCA ratios have been found to correlate with increased degrees of vessel stenosis, calculated as percentage of diameter relative to a normal segment of distal ICA/CCA FINDINGS: RIGHT CAROTID: There is a focal stable atherosclerotic plaquing at the origin of the right internal carotid artery. This does not appear to be significantly changed compared to 2014. The velocities are within normal l imits. LEFT CAROTID: No significant stenosis is visualized. The waveforms are within normal limits. VERTEBRAL ARTERIES: Antegrade flow is seen in both vertebral arteries. MISCELLANEOUS: None. CONCLUSION: 1. There is stable atherosclerotic plaquing at the origin of the right internal carotid artery withou t significant change compared to 2014. 2. No focal high grade or hemodynamically significant stenosis. Wilver Daniels MD on March 30, 2017 at 11:30 Board Certified Radiologist. This report was verified electronically.
--- NOTE | 2017-03-30 13:36 | MB ---
cc: PACO LOZADA M.D. DATE OF CONSULTATION 03/30/2017 REASON FOR CONSULTATION Mental status change. HISTORY OF PRESENT ILLNESS Ms. Mackenzie is a 71-year-old woman who was brought to the hospital by her sister. Her sister found her on the floor and was very confused. She does not recall being on the floor. Does not recall if she passed out or not. There was no witnessed seizure activity. She was last seen normal around 11 o'clock in the morning. She feels back to her baseline state at the present time. She denies any previous history of stroke or TIA or seizure. Denies any difficulty with memory or difficulty with her balance. PAST MEDICAL HISTORY 1. Rheumatoid arthritis 2. Lupus 3. Anxiety/depression 4. Breast cancer treated left mastectomy 5. Hypertension 6. Gastroesophageal reflux disease 7. Neuropathy 8. Hernia repair 9. ALLERGIES None known. MEDICATIONS Current medications are: 1. Lovenox 40 mg subcu daily 2. Tylenol 3. Prinivil 5 mg daily 4. Vasotec p.r.n. NEUROLOGIC EXAMINATION VITAL SIGNS: Blood pressure is 210/108, pulse is 75, respirations 18, temperature is 98.1 degrees. Higher cortical functions, she is alert. She is oriented to place and month, but not to the year. She is oriented to self. She recalls 1/3 objects in three minutes. Remote memory is intact. She can name objects normally. Speech is fluent with no paraphasic errors. She follows commands well. Cranial nerves II-XII are normal. Motor exam demonstrates 5/5 strength of all groups in both upper and lower extremities. There is no drift. Fine motor skills within normal limits. Muscle tone is normal. Reflexes are 2+ and symmetric with no Babinski present. CT of the brain does reveal ventriculomegaly with ischemic demyelinization, no acute change is present. LABORATORY DATA White count is 4500, hemoglobin, hematocrit 35% platelet count is 194,000, PT 10.9, INR 1, APTT 27.2. Sodium is 146, potassium 3.7, chloride 112, the BUN is 7, creatinine 0.68, GFR is 104, glucose 73, CPK 423. Tox screen negative. Urinalysis the pH is 6.5, protein 30, glucose 70, specific gravity 1.009. IMPRESSION Acute mental status change, rule out TIA, rule out focal seizure. She does have ventriculomegaly on the CT scan. She does have difficulty with her memory and she denies any difficulty with her gait. Denies any urinary incontinence. Normal-pressure hydrocephalus would be in the differential would like to obtain an MRI of the brain for further evaluation as well. We will also reassess the patient's gait and also check an EEG to be sure there is no seizure focus, as well as a carotid ultrasound and echocardiogram to rule out potential embolic source. MD BRAYAN Mccormack/TETO /11:15 AM /1:29 PM
[2017-03-30] MEDS ORDERED: NEUR400C (16:07)
[2017-03-30] MEDS ORDERED: OMEP10CA (16:07)
[2017-03-30] MEDS ORDERED: ZIPR1CAP12 (16:07)
[2017-03-30] MEDS ORDERED: EMOLLOT TOPICAL (16:07)
[2017-03-30] MEDS ORDERED: CARV6.252 PO (16:07)
[2017-03-30] MEDS: GABAPENTIN 400 MG CAP PO SCH (17:24)
--- NOTE | 2017-03-30 17:43 | EC ---
Study Study Date:03/30/2017 STUDY CONCLUSIONS SUMMARY - Left ventricle: The cavity size was normal. Wall thickness was increased in a pattern of mild LVH. There was concentric hypertrophy. Systolic function was normal. The estimated ejection fraction was in the range of 65% to 70%. Wall motion was normal; there were no regional wall motion abnormalities. - Mitral valve: Mildly calcified annulus. - Left atrium: The atrium was mildly dilated. - Tricuspid valve: Mild regurgitation. - Pulmonary arteries: PA peak pressure: 49mm Hg (S). If LV function is below 40, please consider prescribing an ACEI or ARB or document rationale for non-use. PROCEDURE DATA STUDY STATUS: Elective. Procedure: Transthoracic echocardiography. Image quality was good. Scanning was performed from the parasternal, apical, and subcostal acoustic windows. Study completion: The patient tolerated the procedure well. Transthoracic echocardiography. M-mode, complete 2D, complete spectral Doppler, and color Doppler. Patient status: Inpatient. CARDIAC ANATOMY LEFT VENTRICLE: The cavity size was normal. Wall thickness was increased in a pattern of mild LVH. There was concentric hypertrophy. Systolic function was normal. The estimated ejection fraction was in the range of 65% to 70%. Wall motion was normal; there were no regional wall motion abnormalities. AORTIC VALVE: Mildly thickened leaflets. Doppler: There was no stenosis. No significant regurgitation. MITRAL VALVE: Mildly calcified annulus. Doppler: There was no evidence for stenosis. Trace to mild regurgitation. LEFT ATRIUM: The atrium was mildly dilated. RIGHT VENTRICLE: The cavity size was normal. Systolic function was normal. PULMONIC VALVE: Not well visualized. Doppler: There was no evidence for stenosis. No significant regurgitation. TRICUSPID VALVE: The valve appears to be grossly normal. Doppler: There was no evidence for stenosis. Mild regurgitation. PERICARDIUM: There was no pericardial effusion. BASIC MEASUREMENTS ADULT Normal Left ventricle LV internal dimension, ED, chordal level, *41.9 mm 43-52 PLAX LV internal dimension, ES, chordal level, 31 mm 23-38 PLAX Fractional shortening, chordal level, PLAX *26 % >29 LV posterior wall thickness, ED 10.2 mm IVS/LVPW ratio, ED 0.9 <1.3 Ventricular septum Septal thickness, ED 9.16 mm Aortic valve Leaflet separation 21 mm 15-26 BASIC MEASUREMENTS ADULT Normal Aortic valve Leaflet separation 21 mm 15-26 Aorta Root diameter, ED 36 mm 20-37 Left atrium Anterior-posterior dimension, ES *41 mm 19-40 LA/aortic root ratio 1.14 DOPPLER MEASUREMENTS ADULT Normal Main pulmonary artery Pressure, S *49 mm Hg =30 Tricuspid valve Regurgitant peak velocity 312 cm/s Peak RV-RA gradient, S 39 mm Hg Maximal regurgitant velocity 312 cm/s Systemic veins Estimated CVP 10 mm Hg Right ventricle RV pressure, S *49 mm Hg <30 LEGEND: Mean values are shown as u=mean value. Asterisk (*) massey values outside specified normal range. Prepared and signed by Leopoldo Cornell [id number]
[2017-03-30] MEDS: ZIPRASIDONE HCL 80 MG CAP PO SCH (20:58)
[2017-03-30] MEDS: ENOXAPARIN SODIUM 40 MG/0.4 ML SYRINGE SQ SCH (20:59)
[2017-03-30] MEDS: CARVEDILOL 6.25 MG TAB PO SCH (20:59)
[2017-03-30] MEDS ORDERED: NON-FORMULARY DRUG (Omeprazole 10 MG) PO SCH (21:00)
[2017-03-31] VITALS (9 sets, daily range): BP systolic 174–229; BP diastolic 94–166; PULSE 69–99; RESP 18–20; TEMP 97.2–99; O2SAT 83–97
[2017-03-31] MEDS: SODIUM CHLORIDE 0.9% FLUSH 10 ML FLUSH IV FLUSH PRN ×2 (05:22→10:55)
[2017-03-31] MEDS: ENALAPRILAT 1.25 MG/ML VIAL IV PUSH PRN ×3 (05:22→17:41)
[2017-03-31 07:41] LABS: AUTOMATED NEUTROPHIL # 1.7 TH/MM3 (1.8-7.7); BASOPHIL % 0.5 % (0.0-2.0); EOSINOPHIL # 0.1 TH/MM3 (0-0.4); EOSINOPHIL % 1.7 % (0.0-4.0); HEMATOCRIT 33.2 % (35.0-46.0); HEMO FLAGS DIFF FINAL; LYMPH % 38.5 % (9.0-44.0); LYMPHOCYTE # 1.6 TH/MM3 (1.0-4.8); MEAN CELL VOLUME 92.7 FL (80.0-100.0); MEAN CORPUSCULAR HEMOGLOBIN 30.9 PG (27.0-34.0); MEAN CORPUSCULAR HGB CONC 33.3 % (32.0-36.0); NEUT % 42.3 % (16.0-70.0); PLATELET COUNT 192 TH/MM3 (150-450); RED BLOOD COUNT 3.59 MIL/MM3 (4.00-5.30); RED CELL DISTRIBUTION WIDTH 14.6 % (11.6-17.2)
[2017-03-31 08:13] LABS: BICARBONATE 27.9 MEQ/L (21.0-32.0); POTASSIUM 3.1 MEQ/L (3.5-5.1)
[2017-03-31 08:22] LABS: HDL CHOLESTEROL 67.1 MG/DL (40.0-60.0)
[2017-03-31] MEDS: PANTOPRAZOLE SOD 20 MG DELAYED RELEASE TAB PO SCH (08:29)
[2017-03-31] MEDS: SODIUM CHLORIDE 0.9% FLUSH 10 ML FLUSH IV FLUSH SCH ×2 (08:29→21:52)
[2017-03-31] MEDS: GABAPENTIN 400 MG CAP PO SCH ×3 (08:29→16:26)
[2017-03-31] MEDS: CARVEDILOL 6.25 MG TAB PO SCH ×2 (08:29→21:52)
[2017-03-31] MEDS: ZIPRASIDONE HCL 80 MG CAP PO SCH ×2 (08:29→21:52)
[2017-03-31] MEDS: LISINOPRIL 10 MG TAB PO SCH (08:31)
--- NOTE | 2017-03-31 08:31 | HHI.FF ---
Face to Face Verification Diagnosis: (1) Schizophrenia (2) Hypertension (3) Tobacco abuse (4) GERD (gastroesophageal reflux disease) (5) Dementia (6) History of breast cancer (7) Impaired mobility and ADLs (8) Fall (9) Weakness Physical Therapy Order: Evaluate and Treat, Improve ambulation, Strength and gait training Home Health Nursing Order: Medical education Signs/symptoms of disease process Nursing assessment with vital signs I have seen patient Shirlene Mackenzie on 03/31/17. My clinical findings support the need for the requested home health care services because: Ltd mobility - disease progression Deconditioned w/ increased weakness Med compliance is questionable Limited ability to care for self Need for psychosocial assistance High risk of falls I certify that my clinical findings support that this patient is homebound because: Unsteady gait/balance Unsafe to leave home unassisted Need for psychosocial assistance Unable to use public transportation Marlen Manriquez PA-C March 31, 2017 8:31 am
[2017-03-31 08:34] LABS: CKMB 3.5 NG/ML (0.5-3.6)
--- NOTE | 2017-03-31 08:35 | HHI.PR ---
Subjective Remarks Follow up for encephalopathy. The patient is awake, alert, oriented to person, place, month, president, but not the year again. She is at her baseline. She states she just keeps getting upset that her blood pressure isn't controlled which she knows is making her blood pressure worse. She states she just wants to go home. She again refuses MRI, she knows she had one last time she was here and doesn't want to have another one. She agrees to [facility] arrangements. Of note, the patient states she has only been taking carvedilol and not lisinopril at home for her hypertension. She states she must've run out of her lisinopril. She verbalized understanding that she will now be on both carvedilol and lisinopril. Objective Vitals Vital Signs Date Time Temp Pulse Resp B/P Pulse Ox O2 Delivery O2 Flow Rate FiO2 03/31/17 05:21 202/100 03/31/17 04:57 99.0 69 18 207/103 96 03/30/17 23:49 98.5 81 18 167/63 99 03/30/17 22:07 75 03/30/17 22:06 16 03/30/17 20:21 99.6 79 18 180/93 100 03/30/17 19:41 82 03/30/17 14:59 99.2 72 18 154/99 98 03/30/17 13:53 79 166/90 03/30/17 11:20 98.2 74 16 206/104 97 Manual Cuff/Auscultation 03/30/17 10:14 216/113 210/108 Manual Cuff/Palpation I/O 03/30/17 03/30/17 03/30/17 03/31/17 03/31/17 03/31/17 07:00 15:00 23:00 07:00 15:00 23:00 Intake Total 120 ml 240 ml 1200 ml Output Total 1700 ml Balance 120 ml 240 ml -500 ml Intake Oral 120 ml 240 ml 1200 ml Output Urine Total 1700 ml # Voids 4 # Bowel Movements 1 Result Diagram: 03/31/17 0529 03/31/17 0529 Imaging Last Impressions Knee X-Ray 03/30/17 0000 Signed Impressions: Service Date/Time: Thursday, March 30, 2017 08:29 - CONCLUSION: Mild/moderate primary degenerative arthritis. Wilver Daniels MD Carotid Artery Ultrasound 03/30/17 0000 Signed Impressions: Service Date/Time: Thursday, March 30, 2017 10:49 - CONCLUSION: 1. There is stable atherosclerotic plaquing at the origin of the right internal carotid artery without significant change compared to 2015. 2. No focal high grade or hemodynamically significant stenosis. Wilver Daniels MD Ankle X-Ray 03/29/17 1917 Signed Impressions: Service Date/Time: Wednesday, March 29, 2017 19:23 - CONCLUSION: 1. Mild soft tissue swelling involving the medial and lateral malleoli. 2. No acute fracture or dislocation. 3. Plantar calcaneal spur. Kashif Varela MD Head CT [id number]/29/171857 Signed Impressions: Service Date/Time: Wednesday, March 29, 2017 20:21 - CONCLUSION: 1. Ventriculomegaly suggesting moderate central cerebral atrophy versus hydrocephalus,. Clinical correlation is recommended. 2. Moderate periventricular and subcortical white matter small vessel ischemic changes bilaterally. 3. No acute infarct, acute hemorrhage, mass effect or extra- axial fluid collections. Kashif Varela MD Chest X-Ray 03/29/171857 Signed Impressions: Service Date/Time: Wednesday, March 29, 2017 19:06 - CONCLUSION: 1. Mild cardiomegaly. 2. No acute focal pulmonary infiltrate or pulmonary vascular congestion. 3. Degenerative changes and scoliosis of the thoracic spine. Kashif Varela MD Pelvis X-Ray 03/29/17 0000 Signed Impressions: Service Date/Time: Wednesday, March 29, 2017 19:16 - CONCLUSION: 1. No acute fracture or dislocation of the bony pelvis. 2. Degenerative changes and scoliosis of the lumbar spine. Kashif Varela MD Lower Extremity Ultrasound 03/29/17 0000 Signed Impressions: Service Date/Time: Wednesday, March 29, 2017 23:41 - CONCLUSION: Normal examination. Cameron Angelo MD Objective Remarks GENERAL: Well-nourished, well-developed pleasant elderly female patient in NAD. SKIN: Warm and dry. No rash. HEENT: Normocephalic. Atraumatic.Pupils equal and round. Mucous membranes pink and moist. NECK: Supple. Trachea midline. CARDIOVASCULAR: Regular rate and rhythm. S1, S2 noted. No murmur appreciated. RESPIRATORY: No accessory muscle use. Clear to auscultation. Breath sounds equal bilaterally. GASTROINTESTINAL: Abdomen soft, non-tender, nondistended. Normoactive bowel sounds x4. MUSCULOSKELETAL: No obvious deformities. Extremities without clubbing, cyanosis , or edema. Right knee and ankle mildly edematous, diffusely tender to palpation. NEUROLOGICAL: Awake and alert. No obvious cranial nerve deficits. Motor grossly within normal limits. 5/5 muscle strength in bilateral upper and lower extremities. Normal speech. No facial droop/lid lag/tongue deviation. PSYCHIATRIC: Appropriate mood and affect; insight and judgment fair. Medications and IVs Current Medications Medications (Trade) Dose Ordered Sig/Angela Route Start Time Stop Time Status Last Admin (NS Flush) 2 ml UNSCH PRN IV FLUSH 03/29/17 21:45 03/31/17 05:22 (NS Flush) 2 ml BID IV FLUSH 03/30/17 09:00 03/30/17 20:59 (Narcan Inj) 0.4 mg UNSCH PRN IV 03/29/17 21:45 (Vasotec Inj) 1.25 mg Q6H PRN IV PUSH 03/30/17 08:00 03/31/17 05:22 (Lovenox Inj) 40 mg HS SQ 03/30/17 21:00 03/30/17 20:59 (Tylenol) 650 mg Q4H PRN PO 03/30/17 11:00 03/30/17 20:58 (Coreg) 6.25 mg BID PO 03/30/17 21:00 03/30/17 20:59 (Neurontin) 400 mg TID PO 03/30/17 18:00 03/30/17 17:24 (Geodon) 80 mg BID PO 03/30/17 21:00 03/30/17 20:58 (Protonix) 20 mg DAILY PO 03/31/17 09:00 (Prinivil) 10 mg DAILY PO 03/31/17 09:00 UNV Urinary Catheter: Yes Assessment to: Remove Date of Insertion: March 29, 2017 Date of Removal: March 31, 2017 A/P Problem List: (1) Altered mental status ICD Code: R41.82 Status: Acute Assessment and Plan 71 year old female patient with hx of dementia, rheumatoid arthritis, lupus, anxiety/depression/schizophrenia on Geodon, breast cancer s/p left mastectomy, HTN, GERD, neuropathy. Patient was brought by her sister to the hospital because she wasn't doing well, increased confusion, and falls. Per ER report patient's sister found her on the floor noted to be confused. Patient does not recall being on the floor. Acute Metabolic Encephalopathy: suspect hypertensive encephalopathy, rule out TIA/CVA. Consider worsening dementia and schizophrenia, unclear if patient compliant with medications. -Reviewed prior records: MRI brain 07/2016 showed no evidence of acute intracranial pathology; Chronic ischemic changes. 2-D echocardiogram October 2015: Ejection fraction was 60% wall motion was normal there were no regional wall motion abnormalities. -CT head reviewed, shows Ventriculomegaly suggesting moderate central cerebral atrophy versus hydrocephalus; Moderate periventricular and subcortical white matter small vessel ischemic changes bilaterally; No acute infarct, acute hemorrhage, mass effect or extra-axial fluid collections. -Ordered brain MRI w/&w/out contrast however patient refusing after multiple attempts -blood cultures with NGTD -continue serial neuro checks -Continuous telemetry monitoring, no acute events -EtOH level and toxicology screen negative -ABG reviewed and unremarkable. -echocardiogram with mild LVH, normal systolic function, EF 65-70% -carotid U/S with stable atherosclerotic plaquing, no significant change compared to 2014; no focal high grade stenosis -consult neurology, appreciate recommendations, patient refuses EEG and MRI -PT/OT eval, recommends [facility], case management consulted Right ankle & knee pain with Right lower extremity Edema: R > L -US bilateral lower extremities negative for DVT -Right ankle x-ray reviewed and reveals mild soft tissue swelling involving the medial and lateral malleoli; No acute fracture dislocation. -Right knee xray with mild/moderate primary degenerative arthritis -pain control with tylenol prn Hypokalemia: potassium 3.0 -Replaced in ED -Repeat K 3.7, however decreased to 3.1 today, given additional replacement -check magnesium Lactic acidosis: lactate elevated at 2.5, Patient is afebrile -WBC 3.2 neutrophils 72.6% -Urinalysis reviewed, no evidence of infection -Chest x-ray reviewed and reveals: Mild cardiomegaly; No acute focal pulmonary infiltrate or pulmonary vascular congestion -Blood cultures with NGTD Accelerated Hypertension: suspect secondary to noncompliance, patient only taking Coreg at home, supposed to also be on lisinopril -Continue patient's carvedilol 6.25mg bid -added lisinopril 10mg daily -IV Vasotec prn -monitor BP, adjust antihypertensives as needed Schizophrenia: chronic -continue patient's Geodon DVT prophylaxis: Lovenox Discharge Planning Likely discharge today if BP better controlled and cleared by neurology. Patient refusing EEG and MRI. Case management to arrange [facility]. Problem Qualifiers (1) Altered mental status: Qualified Code: R41.0 - Disorientation Marlen Manriquez PA-C March 31, 2017 08:35
[2017-03-31] MEDS ORDERED: POTASSIUM CHLORIDE 20 MEQ CONTROLLED RELEASE TAB PO ONE (09:00)
[2017-03-31] MEDS: ACETAMINOPHEN 325 MG TAB PO PRN (10:56)
[2017-03-31] MEDS ORDERED: LORazepam 2 MG/ML VIAL IV SCH (12:30)
[2017-03-31] MEDS ORDERED: GADODIAMIDE PF 287 MG/ML 10 ML VIAL (for RAD MRI) IV ONE (13:37)
[2017-03-31] MEDS ORDERED: NIFEdipine 30 MG SUSTAINED RELEASE TAB PO ONE ×2 (15:00→20:15)
[2017-03-31] MEDS ORDERED: THIAMINE HCL 100 MG TAB PO ONE (15:45)
[2017-03-31] MEDS: CHOLECALCIFEROL (VIT D3) 5000 UNIT CAP PO SCH (16:26)
--- NOTE | 2017-03-31 17:03 | HHI.PR ---
Review/Management Diagnosis confusion, syncope. possible sz ventriculomegally--suspect central atrophy but follow up mri Diagnosis/Plan: Subjective Subjective Comments No acute events reported pt refused eeg Active Medications Current Medications Medications (Trade) Dose Ordered Sig/Angela Route Start Time Stop Time Status Last Admin (NS Flush) 2 ml UNSCH PRN IV FLUSH 03/29/17 21:45 03/31/17 10:55 (NS Flush) 2 ml BID IV FLUSH 03/30/17 09:00 03/31/17 08:29 (Narcan Inj) 0.4 mg UNSCH PRN IV 03/29/17 21:45 (Vasotec Inj) 1.25 mg Q6H PRN IV PUSH 03/30/17 08:00 03/31/17 10:54 (Lovenox Inj) 40 mg HS SQ 03/30/17 21:00 03/30/17 20:59 (Tylenol) 650 mg Q4H PRN PO 03/30/17 11:00 03/31/17 10:56 (Coreg) 6.25 mg BID PO 03/30/17 21:00 03/31/17 08:29 (Neurontin) 400 mg TID PO 03/30/17 18:00 03/31/17 16:26 (Geodon) 80 mg BID PO 03/30/17 21:00 03/31/17 08:29 (Protonix) 20 mg DAILY PO 03/31/17 09:00 03/31/17 08:29 (Prinivil) 10 mg DAILY PO 03/31/17 09:00 03/31/17 08:31 (Vitamin D3) 5,000 units DAILY PO 03/31/17 15:45 03/31/17 16:26 (Vitamin B12) 1,000 mcg DAILY PO 04/01/17 09:00 (Vitamin B1) 100 mg DAILY PO 04/01/17 09:00 Allergies Allergies Coded Allergies No Known Allergies (Verified03/29/17) Review of Systems All other ROS: ROS reviewed as documented in chart Exam I&O / VS 03/30/17 03/30/17 03/31/17 15:00 23:00 07:00 Intake Total 240 ml 1200 ml Output Total 1700 ml Balance 240 ml -500 ml Intake Oral 240 ml 1200 ml Output Urine Total 1700 ml # Voids 4 # Bowel Movements 1 Vital Signs Date Time Temp Pulse Resp B/P Pulse Ox O2 Delivery O2 Flow Rate FiO2 03/31/17 14:45 82 180/98 03/31/17 13:00 180/94 03/31/17 12:07 16 03/31/17 12:00 97.2 70 20 222/106 97 03/31/17 10:52 71 229/127 03/31/17 08:00 98.6 83 20 174/105 96 03/31/17 05:21 202/100 03/31/17 04:57 99.0 69 18 207/103 96 03/30/17 23:49 98.5 81 18 167/63 99 03/30/17 22:07 75 03/30/17 20:21 99.6 79 18 180/93 100 03/30/17 19:41 82 General: Alert and Oriented, No acute distress Eye: EOMI Respiratory: Non-labored respirations Cardiology: Normal rate Musculoskeletal: ROM Neurologic: Alert, Oriented, Normal sensory, Normal motor, No focal defects, CN II-XII intact, Gag reflex normal, Normal DTR's Psychiatric: Cooperative, Appropriate mood & affect, Normal judgement Exam Comments alert, oriented times two, follow commands Cn intact Motor no focal deficits Objective Radiology Results MRI brain--pending carotid US--no significant stenosis Micro and Labs Laboratory Tests Test 03/31/17 05:29 White Blood Count 4.0 Red Blood Count 3.59 Hemoglobin 11.1 Hematocrit 33.2 Mean Corpuscular Volume 92.7 Mean Corpuscular Hemoglobin 30.9 Mean Corpuscular Hemoglobin 33.3 Concent Red Cell Distribution Width 14.6 Platelet Count 192 Mean Platelet Volume 7.9 Neutrophils (%) (Auto) 42.3 Lymphocytes (%) (Auto) 38.5 Monocytes (%) (Auto) 17.0 Eosinophils (%) (Auto) 1.7 Basophils (%) (Auto) 0.5 Neutrophils # (Auto) 1.7 Lymphocytes # (Auto) 1.6 Monocytes # (Auto) 0.7 Eosinophils # (Auto) 0.1 Basophils # (Auto) 0.0 CBC Comment DIFF FINAL Differential Comment Sodium Level 142 Potassium Level 3.1 Chloride Level 107 Carbon Dioxide Level 27.9 Anion Gap 7 Blood Urea Nitrogen 6 Creatinine 0.69 Estimat Glomerular Filtration 102 Rate Random Glucose 94 Calcium Level 8.5 Magnesium Level 1.9 Total Creatine Kinase 595 Creatine Kinase MB 3.5 Creatine Kinase MB % 0.6 Triglycerides Level 61 Cholesterol Level 153 LDL Cholesterol 74 HDL Cholesterol 67.1 Cholesterol/HDL Ratio 2.28 Thyroid Stimulating Hormone 1.070 3rd Gen Date/Time Procedure Status Source Growth 03/29/17 19:10 Aerobic Blood Culture - Preliminary Resulted Blood Peripheral NO GROWTH IN 2 DAYS 03/29/17 19:10 Anaerobic Blood Culture - Preliminary Resulted Blood Peripheral NO GROWTH IN 2 DAYS Hong Araujo PhD March 31, 2017 17:03
[2017-03-31] MEDS ORDERED: NICOTINE 7 MG/24 HR PATCH T-DERMAL SCH (17:15)
[2017-03-31] MEDS ORDERED: REMOVE OLD PATCH T-DERMAL SCH (17:15)
--- NOTE | 2017-03-31 17:56 | RADRPT ---
EXAM DATE/TIME: 03/31/2017 13:22 [facility] COMPARISON: MRI BRAIN W & W/O CONTRAST, October 06, 2015, 12:01. INDICATIONS : CVA. Normal pressure hydrocephalus. CONTRAST: 10 cc Omniscan (gadodiamide) IV MEDICAL HISTORY : Hypertension. Carcinoma, breast. SURGICAL HISTORY : Umbilical hernia repair. Mastectomy, left. ENCOUNTER: Subsequent ACUITY: 3 day PAIN SCORE: 0/10 LOCATION: Head. TECHNIQUE: Multiplanar, multisequence MRI of the brain was performed both prior to and following the administration of paramagnetic contrast. FINDINGS: There is moderate central and cortical atrophy with dilatation of periventricular and s ulcal spaces. Ventricles are prominent, somewhat out of proportion for the degree of sulcal dilatati on. There is no restricted diffusion evident. Periventricular white matter changes extend into the posterior fossa. Following intravenous administration of gadolinium there is abnormal contrast enhancement. CONCLUSION: Prominent ventricles, out of proportion to degree of sulcal dilatation. Suspicious no rmal pressure hydrocephalus as suggested. Bobo Loco MD FACR on March 31, 2017 at 17:43 Board Certified Radiologist. This report was verified electronically.
--- NOTE | 2017-03-31 19:29 | PD.CONS ---
HPI Service Neurosurgery Consult Requested By Dr Gomez Reason for Consult Hydrocephalus Primary Care Physician Unknown History of Present Illness This is a 71 year old female with history of rheumatoid arthritis, lupus, anxiety/depression/psychiatric illness on [facility], breast cancer s/p left mastectomy, HTN, GERD, neuropathy. As her baseline, she is normally alert and oriented to person and place only. Apparently her sister brought her to the hospital because she was confused . According to the ER reports, her sister found her on the floor, confused. She does not recall being on the floor. Does not recall falling. She was last seen normal around 11 AM 03/29/17. She denies chest pain, SOB, N/V/D, fevers, chill, cough congestion, blood in stool, increased urinary frequency, dysuria. Glucose upon arrival 189. CT of the brain [id number] hydrocephalus. Neurosurgical consultation was requested. Review of Systems Poor Historian Confused ROS Limitations: Clinical Condition, Altered Mental Status, Poor Historian Past Family Social History Allergies: Coded Allergies: No Known Allergies (Verified , 03/29/17) Past Medical History rheumatoid arthritis lupus anxiety/depression/psychiatric illness on [facility] breast cancer s/p left mastectomy GERD neuropathy HTN Breast cancer Past Surgical History Left breast mastectomy hernia repair with mesh Reported Medications Unobtainable Active Ordered Medications Current Medications IV Flush 2 ml 2 ml UNSCH PRN IV FLUSH FLUSH AFTER USING IV ACCESS; Start at 19:00; Stop 03/29/17 at 21:44; Status DC Sodium Chloride (NS 1000 ml Inj) 1,000 ml @ 1,000 mls/hr Q1H IV Last administered on 03/29/17 19:15; Start 03/29/17 at 18:58; Stop 03/29/17 at 19:57 ; Status DC Potassium Bicarb/ Potassium Chloride (K-Lyte Cl Eff) 50 meq ONCE ONCE PO Last administered on 03/29/17 22:01; Start 03/29/17 at 21:45; Stop 03/29/17 at 21:46; Status DC Sodium Chloride (NS Flush) 2 ml UNSCH PRN IV FLUSH FLUSH AFTER USING IV ACCESS Last administered on 03/31/17 10:55; Start 03/29/17 at 21:45 Sodium Chloride (NS Flush) 2 ml BID IV FLUSH Last administered on 04/02/17 10: 01; Start 03/30/17 at 09:00 Naloxone HCl (Narcan Inj) 0.4 mg UNSCH PRN IV SEE LABEL COMMENTS; Start at 21:45 Enalaprilat (Vasotec Inj) 1.25 mg Q6H PRN IV PUSH SBP> OR = 180, DBP> OR = 100 Last administered on 03/31/17 17:41; Start 03/30/17 at 08:00 Lisinopril (Prinivil) 5 mg DAILY PO Last administered on 03/30/17 09:22; Start 03/30/17 at 09:00; Stop 03/31/17 at 08:14; Status DC Enoxaparin Sodium (Lovenox Inj) 40 mg HS SQ Last administered on 03/31/17 21: 52; Start 03/30/17 at 21:00; Status Hold Acetaminophen (Tylenol) 650 mg Q4H PRN PO headache/fever/pain1-5 Last administered on 04/02/17 05:32; Start 03/30/17 at 11:00 Carvedilol (Coreg) 6.25 mg BID PO Last administered on 04/02/17 10:01; Start at 21:00 Gabapentin (Neurontin) 400 mg TID PO Last administered on 04/02/17 10:03; Start 03/30/17 at 18:00 Ziprasidone (Geodon) 80 mg BID PO Last administered on 04/02/17 10:02; Start at 21:00 Non-Formulary Medication 10 mg BID PO ; Start 03/30/17 at 21:00; Status UNV Pantoprazole Sodium (Protonix) 20 mg DAILY PO Last administered on 04/02/17 10: 02; Start 03/31/17 at 09:00 Lisinopril (Prinivil) 10 mg DAILY PO Last administered on 04/02/17 10:02; Start 03/31/17 at 09:00 Potassium Chloride (KCl) 40 meq ONCE ONCE PO Last administered on 03/31/17 09 :31; Start 03/31/17 at 09:00; Stop 03/31/17 at 09:01; Status DC Lorazepam (Ativan Inj) 1 mg SECOND FACING BASTER IV Last administered on 03/31/17 13:06; Start 03/31/17 at 12:30; Stop 03/31/17 at 23:59; Status DC Gadodiamide (Omniscan Pf Inj) 10 ml STK-MED ONCE IV Last administered on 13:37; Start 03/31/17 at 13:37; Stop 03/31/17 at 13:38; Status DC Nifedipine (Procardia Xl) 30 mg ONCE ONCE PO Last administered on 03/31/17 14 :57; Start 03/31/17 at 15:00; Stop 03/31/17 at 15:01; Status DC Cholecalciferol (Vitamin D3) 5,000 units DAILY PO Last administered on 10:02; Start 03/31/17 at 15:45 Cyanocobalamin (Vitamin B12) 1,000 mcg DAILY PO Last administered on 04/02/17 10:02; Start 04/01/17 at 09:00 Thiamine HCl (Vitamin B1) 100 mg DAILY PO Last administered on 04/02/17 10:02; Start 04/01/17 at 09:00 Thiamine HCl (Vitamin B1) 100 mg ONCE ONCE PO Last administered on 03/31/17 16:26; Start 03/31/17 at 15:45; Stop 03/31/17 at 15:47; Status DC Nicotine (Habitrol 7 Mg Patch.24 Hr) 1 patch DAILY T-DERMAL ; Start 03/31/17 at 17:15; Stop 03/31/17 at 20:09; Status DC Miscellaneous Information 1 DAILY T-DERMAL ; Start 03/31/17 at 17:15; Stop 03/31 at 20:09; Status DC Nifedipine (Procardia Xl) 60 mg DAILY PO Last administered on 04/02/17 10:02; Start 04/01/17 at 09:00 Clonidine (Catapres) 0.1 mg Q6H PRN PO SBP>160, DBP>90 Last administered on 04/01 00:09; Start 03/31/17 at 20:15 Enalaprilat (Vasotec Inj) 1.25 mg ONCE ONCE IV PUSH Last administered on 03/31 21:08; Start 03/31/17 at 20:15; Stop 03/31/17 at 20:20; Status DC Nifedipine (Procardia Xl) 30 mg ONCE ONCE PO Last administered on 03/31/17 21 :08; Start 03/31/17 at 20:15; Stop 03/31/17 at 20:20; Status DC Family History Reviewed, patient denies any significant medical history in the family Social History Lives with her sister Smokes tobacco, 1/2 PPD Denies alcohol abuse or illicit drug use Physical Exam Vital Signs Vital Signs Date Time Temp Pulse Resp B/P Pulse Ox O2 Delivery O2 Flow Rate FiO2 03/31/17 17:36 196/104 03/31/17 14:45 82 180/98 03/31/17 13:00 180/94 03/31/17 12:07 16 03/31/17 12:00 97.2 70 20 222/106 97 03/31/17 10:52 71 229/127 03/31/17 08:00 98.6 83 20 174/105 96 03/31/17 05:21 202/100 03/31/17 04:57 99.0 69 18 207/103 96 03/30/17 23:49 98.5 81 18 167/63 99 03/30/17 22:07 75 03/30/17 20:21 99.6 79 18 180/93 100 03/30/17 19:41 82 Physical Exam The patient is alert, confused, oriented to self. Cranial nerve examination demonstrates the pupils to be equal, round, and reactive to light. Extra-ocular movements are intact with normal convergence. Facial motor function appears normal and symmetrical. Face sensation, hearing, visual bolden, and olfaction can not be assessed properly due to the patients condition. The patient has an intact corneal reflex and a gag reflex. Sternocleidomastoid and trapezius have normal and symmetrical strength. Other cranial nerves are intact. Neck is soft and supple. Cervical spine has a decreased range of motion of the cervical spine without pain. There is no tenderness to palpation to the spinous processes or paraspinal muscles. Muscle testing reveals normal bulk and tone overall without rigidity, spasticity , fasciculations, or atrophy. Muscle strength is 5/5 in all muscle groups of both upper and lower extremities. Deep tendon reflexes are 1+ and symmetrical in the biceps, triceps, and brachioradialis, bilaterally, in the upper extremities. In the lower extremities , the patellar and Achilles are 1+, bilaterally. There is a bilateral plantar flexion response. Hoffmanns sign is negative. There is no clonus or other abnormal reflexes noted. Cerebellar examination is limited due to the patient condition, but no obvious deficits are noted. Laboratory Laboratory Tests Test 03/31/17 05:29 White Blood Count 4.0 Red Blood Count 3.59 Hemoglobin 11.1 Hematocrit 33.2 Mean Corpuscular Volume 92.7 Mean Corpuscular Hemoglobin 30.9 Mean Corpuscular Hemoglobin 33.3 Concent Red Cell Distribution Width 14.6 Platelet Count 192 Mean Platelet Volume 7.9 Neutrophils (%) (Auto) 42.3 Lymphocytes (%) (Auto) 38.5 Monocytes (%) (Auto) 17.0 Eosinophils (%) (Auto) 1.7 Basophils (%) (Auto) 0.5 Neutrophils # (Auto) 1.7 Lymphocytes # (Auto) 1.6 Monocytes # (Auto) 0.7 Eosinophils # (Auto) 0.1 Basophils # (Auto) 0.0 CBC Comment DIFF FINAL Differential Comment Sodium Level 142 Potassium Level 3.1 Chloride Level 107 Carbon Dioxide Level 27.9 Anion Gap 7 Blood Urea Nitrogen 6 Creatinine 0.69 Estimat Glomerular Filtration 102 Rate Random Glucose 94 Calcium Level 8.5 Magnesium Level 1.9 Total Creatine Kinase 595 Creatine Kinase MB 3.5 Creatine Kinase MB % 0.6 Triglycerides Level 61 Cholesterol Level 153 LDL Cholesterol 74 HDL Cholesterol 67.1 Cholesterol/HDL Ratio 2.28 Vitamin B12 Level 280 25-Hydroxy Vitamin D Total 11.1 Thyroid Stimulating Hormone 1.070 3rd Gen Date/Time Procedure Status Source Growth 03/29/17 19:10 Aerobic Blood Culture - Preliminary Resulted Blood Peripheral NO GROWTH IN 2 DAYS 03/29/17 19:10 Anaerobic Blood Culture - Preliminary Resulted Blood Peripheral NO GROWTH IN 2 DAYS Result Diagram: 03/31/1729 03/31/1729 Imaging Last Impressions Ankle X-Ray 03/29/171916 Signed Impressions: Service Date/Time: Wednesday, March 29, 2017 19:23 - CONCLUSION: 1. Mild soft tissue swelling involving the medial and lateral malleoli. 2. No acute fracture or dislocation. 3. Plantar calcaneal spur. Kashif Varela MD Head CT 03/29/171857 Signed Impressions: Service Date/Time: Wednesday, March 29, 2017 20:21 - CONCLUSION: 1. Ventriculomegaly suggesting moderate central cerebral atrophy versus hydrocephalus,. Clinical correlation is recommended. 2. Moderate periventricular and subcortical white matter small vessel ischemic changes bilaterally. 3. No acute infarct, acute hemorrhage, mass effect or extra- axial fluid collections. Kashif Varela MD Chest X-Ray 03/29/171857 Signed Impressions: Service Date/Time: Wednesday, March 29, 2017 19:06 - CONCLUSION: 1. Mild cardiomegaly. 2. No acute focal pulmonary infiltrate or pulmonary vascular congestion. 3. Degenerative changes and scoliosis of the thoracic spine. Kashif Varela MD Pelvis X-Ray 03/29/17 0000 Signed Impressions: Service Date/Time: Wednesday, March 29, 2017 19:16 - CONCLUSION: 1. No acute fracture or dislocation of the bony pelvis. 2. Degenerative changes and scoliosis of the lumbar spine. Kashif Varela MD Lower Extremity Ultrasound 03/29/17 0000 Signed Impressions: Service Date/Time: Wednesday, March 29, 2017 23:41 - CONCLUSION: Normal examination. Cameron Angelo MD Attending Statement Neuro. neuro checks in a serial fashion. Recommend neurology consult for evaluation of encephalopathy, and consideration to a trial of lumbar drain placement Pulmonary aggressive pulmonary toilette, nasotracheal suction, and breathing treatments with nebulizers. PT and OT evaluation Nutrition. NPO after midnight Renal. monitor closely urine output, BUN and creatinine Endocrine. Monitor serial Acu checks and SSI as needed in detail Right lower extremity Edema greater than left. US bilateral lower extremities to rule out DVT Right ankle pain with edema. Right ankle x-ray reviewed and reveals mild soft tissue swelling involving the medial and lateral malleoli. No acute fracture dislocation. Plantar calcaneal spur Hypokalemia potassium 3.0. Replaced in ED recheck in a.m. Lactic acid elevated 2.5/ Blood cell count 3.2 neutrophils 72.6% Urinalysis reviewed reveals hyper chain I urine glucose negative nitrates negative leukocyte esterase no culture indicated Monitor for signs of infection Protonix for stress ulcer prophylaxis Adolph hose and SCD's for DVT prophylaxis Edouard López MD March 31, 2017 19:28
[2017-03-31] MEDS ORDERED: cloNIDine HCL 0.1 MG TAB PO PRN (20:15)
[2017-03-31] MEDS ORDERED: ENALAPRILAT 1.25 MG/ML VIAL IV PUSH ONE (20:15)
[2017-03-31] MEDS: ENOXAPARIN SODIUM 40 MG/0.4 ML SYRINGE SQ SCH (21:52)
[2017-04-01] VITALS (7 sets, daily range): BP systolic 83–182; BP diastolic 59–99; PULSE 65–85; RESP 16–18; TEMP 96–98.2; O2SAT 95–99
[2017-04-01] MEDS: ACETAMINOPHEN 325 MG TAB PO PRN ×3 (00:09→21:12)
--- NOTE | 2017-04-01 08:25 | HHI.PR ---
Subjective Remarks Follow up for fall, encephalopathy. The patient is seen sitting upright in bed finishing a Honey Bun and drinking pink lemonade, despite neurosurgery placing order for NPO. She states she is going home today "no matter what". She says her blood pressure is better so she can go home. Explained neurology wants EEG done and patient is agreeable. Also attempted to explain NPH and possible lumbar drain placement however the patient states she's "not doing anything like that." She does not recall talking with Dr. López yesterday and does not recall any conversation about NPH. The patient otherwise denies any headache, lightheadedness, dizziness, chest pain, or shortness of breath. She adamantly wants to go home today. Objective Vitals Vital Signs Date Time Temp Pulse Resp B/P Pulse Ox O2 Delivery O2 Flow Rate FiO2 04/01/17 05:07 70 04/01/17 04:00 98.0 70 16 114/59 99 04/01/17 00:02 98.0 80 18 180/90 98 170/96 03/31/17 19:31 98.0 99 19 222/166 83 213/120 190/100 183/97 03/31/17 17:36 196/104 03/31/17 14:45 82 180/98 03/31/17 13:00 180/94 03/31/17 12:07 16 03/31/17 12:00 97.2 70 20 222/106 97 03/31/17 10:52 71 229/127 I/O 03/31/17 03/31/17 03/31/17 04/01/17 04/01/17 04/01/17 06:59 14:59 22:59 06:59 14:59 22:59 Intake Total 1200 ml 240 ml 120 ml 1000 ml Output Total 1700 ml Balance -500 ml 240 ml 120 ml 1000 ml Intake Oral 1200 ml 240 ml 120 ml 1000 ml Output Urine Total 1700 ml # Voids 4 3 3 # Bowel Movements 1 3 Result Diagram: 03/31/17 0529 03/31/17 0529 Imaging Last Impressions Knee X-Ray 03/30/17 0000 Signed Impressions: Service Date/Time: Thursday, March 30, 2017 08:29 - CONCLUSION: Mild/moderate primary degenerative arthritis. Wilver Daniels MD Carotid Artery Ultrasound 03/30/17 0000 Signed Impressions: Service Date/Time: Thursday, March 30, 2017 10:49 - CONCLUSION: 1. There is stable atherosclerotic plaquing at the origin of the right internal carotid artery without significant change compared to 2015. 2. No focal high grade or hemodynamically significant stenosis. Wilver Daniels MD Ankle X-Ray 03/29/171916 Signed Impressions: Service Date/Time: Wednesday, March 29, 2017 19:23 - CONCLUSION: 1. Mild soft tissue swelling involving the medial and lateral malleoli. 2. No acute fracture or dislocation. 3. Plantar calcaneal spur. Kashif Varela MD Head CT 03/29/171857 Signed Impressions: Service Date/Time: Wednesday, March 29, 2017 20:21 - CONCLUSION: 1. Ventriculomegaly suggesting moderate central cerebral atrophy versus hydrocephalus,. Clinical correlation is recommended. 2. Moderate periventricular and subcortical white matter small vessel ischemic changes bilaterally. 3. No acute infarct, acute hemorrhage, mass effect or extra- axial fluid collections. Kashif Varela MD Chest X-Ray 03/29/171857 Signed Impressions: Service Date/Time: Wednesday, March 29, 2017 19:06 - CONCLUSION: 1. Mild cardiomegaly. 2. No acute focal pulmonary infiltrate or pulmonary vascular congestion. 3. Degenerative changes and scoliosis of the thoracic spine. Kashif Varela MD Pelvis X-Ray 03/29/17 0000 Signed Impressions: Service Date/Time: Wednesday, March 29, 2017 19:16 - CONCLUSION: 1. No acute fracture or dislocation of the bony pelvis. 2. Degenerative changes and scoliosis of the lumbar spine. Kashif Varela MD Lower Extremity Ultrasound 03/29/17 0000 Signed Impressions: Service Date/Time: Wednesday, March 29, 2017 23:41 - CONCLUSION: Normal examination. Cameron Angelo MD Objective Remarks GENERAL: Well-nourished, well-developed pleasant elderly AA female patient in NAD. SKIN: Warm and dry. No rash. HEENT: Normocephalic. Atraumatic.Pupils equal and round. Mucous membranes pink and moist. NECK: Supple. Trachea midline. CARDIOVASCULAR: Regular rate and rhythm. S1, S2 noted. No murmur appreciated. RESPIRATORY: No accessory muscle use. Clear to auscultation. Breath sounds equal bilaterally. GASTROINTESTINAL: Abdomen soft, non-tender, nondistended. Normoactive bowel sounds x4. MUSCULOSKELETAL: No obvious deformities. Extremities without clubbing, cyanosis , or edema. Right knee and ankle mildly edematous, nontender today. NEUROLOGICAL: Awake and alert. No obvious cranial nerve deficits. Motor grossly within normal limits. 5/5 muscle strength in bilateral upper and lower extremities. Normal speech. No facial droop/lid lag/tongue deviation. PSYCHIATRIC: Appropriate mood and affect; insight and judgment fair. Medications and IVs Current Medications Medications (Trade) Dose Ordered Sig/Angela Route Start Time Stop Time Status Last Admin (NS Flush) 2 ml UNSCH PRN IV FLUSH 03/29/17 21:45 03/31/17 10:55 (NS Flush) 2 ml BID IV FLUSH 03/30/17 09:00 03/31/17 21:52 (Narcan Inj) 0.4 mg UNSCH PRN IV 03/29/17 21:45 (Vasotec Inj) 1.25 mg Q6H PRN IV PUSH 03/30/17 08:00 03/31/17 17:41 (Lovenox Inj) 40 mg HS SQ 03/30/17 21:00 03/31/17 21:52 (Tylenol) 650 mg Q4H PRN PO 03/30/17 11:00 04/01/17 00:09 (Coreg) 6.25 mg BID PO 03/30/17 21:00 03/31/17 21:52 (Neurontin) 400 mg TID PO 03/30/17 18:00 03/31/17 16:26 (Geodon) 80 mg BID PO 03/30/17 21:00 03/31/17 21:52 (Protonix) 20 mg DAILY PO 03/31/17 09:00 03/31/17 08:29 (Prinivil) 10 mg DAILY PO 03/31/17 09:00 03/31/17 08:31 (Vitamin D3) 5,000 units DAILY PO 03/31/17 15:45 03/31/17 16:26 (Vitamin B12) 1,000 mcg DAILY PO 04/01/17 09:00 (Vitamin B1) 100 mg DAILY PO 04/01/17 09:00 (Procardia Xl) 60 mg DAILY PO 04/01/17 09:00 (Catapres) 0.1 mg Q6H PRN PO 03/31/17 20:15 04/01/17 00:09 Date of Insertion: March 29, 2017 Date of Removal: March 31, 2017 A/P Problem List: (1) Altered mental status ICD Code: R41.82 Status: Acute Assessment and Plan 71 year old female patient with hx of dementia, rheumatoid arthritis, lupus, anxiety/depression/schizophrenia on Geodon, breast cancer s/p left mastectomy, HTN, GERD, neuropathy. Patient was brought by her sister to the hospital because she wasn't doing well, increased confusion, and falls. Per ER report patient's sister found her on the floor noted to be confused. Patient does not recall being on the floor. Acute Metabolic Encephalopathy: suspect hypertensive encephalopathy, rule out TIA/CVA. Consider worsening dementia and schizophrenia, unclear if patient compliant with medications. -Reviewed prior records: MRI brain 07/2016 showed no evidence of acute intracranial pathology; Chronic ischemic changes. -CT head reviewed, shows Ventriculomegaly suggesting moderate central cerebral atrophy versus hydrocephalus; Moderate periventricular and subcortical white matter small vessel ischemic changes bilaterally; No acute infarct, acute hemorrhage, mass effect or extra-axial fluid collections. -Brain MRI w/&w/out contrast showed prominent ventricles, out of proportion to degree of sulcal dilatation; suspicious normal pressure hydrocephalus -blood cultures with NGTD -continue serial neuro checks -Continuous telemetry monitoring, no acute events -EtOH level and toxicology screen negative -ABG reviewed and unremarkable. -echocardiogram with mild LVH, normal systolic function, EF 65-70% -carotid U/S with stable atherosclerotic plaquing, no significant change compared to 2014; no focal high grade stenosis -consult neurology, appreciate recommendations -EEG ordered and pending -PT/OT eval, recommends [facility], case management arranged Suspect Normal Pressure Hydrocephalus: seen on brain MRI as above. -consulted neurosurgery -seen by Dr. López, recommends trial of lumbar drain placement -patient refusing procedure to me this morning, does not appear to understand diagnosis, family and patient will need to discuss with neurosurgery Right ankle & knee pain with Right lower extremity Edema: R > L -US bilateral lower extremities negative for DVT -Right ankle x-ray reviewed and reveals mild soft tissue swelling involving the medial and lateral malleoli; No acute fracture dislocation. -Right knee xray with mild/moderate primary degenerative arthritis -pain control with tylenol prn Hypokalemia: potassium 3.0 -Replaced in ED -Repeat K 3.7, however decreased to 3.1 today, given additional replacement -magnesium 1.9 Lactic acidosis: lactate elevated at 2.5, Patient is afebrile -WBC 3.2 neutrophils 72.6% -Urinalysis reviewed, no evidence of infection -Chest x-ray reviewed and reveals: Mild cardiomegaly; No acute focal pulmonary infiltrate or pulmonary vascular congestion -Blood cultures with NGTD Accelerated Hypertension: suspect secondary to noncompliance, patient only taking Coreg at home, supposed to also be on lisinopril -Continue patient's carvedilol 6.25mg bid -added lisinopril 10mg daily -added nifedipine XL 60mg daily -IV Vasotec prn and po Clonidine prn -monitor BP, adjust antihypertensives as needed Schizophrenia: chronic -continue patient's Geodon Vitamin D Deficiency: vit D level 11.1 -start on cholecalciferol Mild Rhabdomyolysis: secondary to fall, CK 595 -encourage po intake, patient drinking fluids DVT prophylaxis: Lovenox Discharge Planning Likely discharge today if cleared by neurology/neurosurgery. Awaiting EEG. Currently patient refusing any procedure despite my attempt to explain, may need to discuss with neurologist/neurosurgery. Case management arranged [facility]. Problem Qualifiers (1) Altered mental status: Qualified Code: R41.0 - Disorientation Marlen Manriquez PA-C Apr 01, 2017 8:25 am
[2017-04-01] MEDS: CHOLECALCIFEROL (VIT D3) 5000 UNIT CAP PO SCH (09:02)
[2017-04-01] MEDS: NIFEdipine 60 MG SUSTAINED RELEASE TAB PO SCH (09:02)
[2017-04-01] MEDS: GABAPENTIN 400 MG CAP PO SCH ×3 (09:03→18:11)
[2017-04-01] MEDS: ZIPRASIDONE HCL 80 MG CAP PO SCH ×2 (09:03→21:04)
[2017-04-01] MEDS: THIAMINE HCL 100 MG TAB PO SCH (09:03)
[2017-04-01] MEDS: LISINOPRIL 10 MG TAB PO SCH (09:03)
[2017-04-01] MEDS: CARVEDILOL 6.25 MG TAB PO SCH ×2 (09:03→21:04)
[2017-04-01] MEDS: CYANOCOBALAMIN 1,000 MCG TAB PO SCH (09:04)
[2017-04-01] MEDS: PANTOPRAZOLE SOD 20 MG DELAYED RELEASE TAB PO SCH (09:04)
[2017-04-01] MEDS: SODIUM CHLORIDE 0.9% FLUSH 10 ML FLUSH IV FLUSH SCH ×2 (09:04→21:03)
[2017-04-01 13:51] LABS: BICARBONATE 29.5 MEQ/L (21.0-32.0); POTASSIUM 3.2 MEQ/L (3.5-5.1)
--- NOTE | 2017-04-01 16:23 | HHI.NSPN ---
(Raquel Bowen) Note Status Status: Progress Note (Raquel Bowen) Interval History Interval History 04/01: oriented to name, place, and month. denies headaches, vomiting. Neurology following (Raquel Bowen) Labs, Micro, & Vital Signs Results Date Time Temp Pulse Resp B/P Pulse Ox O2 Delivery O2 Flow Rate FiO2 04/01/17 08:22 98.2 72 17 162/84 97 164/84 182/99 04/01/17 08:00 85 04/01/17 05:07 70 04/01/17 04:00 98.0 70 16 114/59 99 04/01/17 00:02 98.0 80 18 180/90 98 170/96 03/31/17 19:31 98.0 99 19 222/166 83 213/120 190/100 183/97 03/31/17 17:36 196/104 04/01/17 07:00 Intake Total 1360 ml Balance 1360 ml Constitutional Vital Signs Date Time Temp Pulse Resp B/P Pulse Ox O2 Delivery O2 Flow Rate FiO2 04/01/17 08:22 98.2 72 17 162/84 97 164/84 182/99 04/01/17 08:00 85 04/01/17 05:07 70 04/01/17 04:00 98.0 70 16 114/59 99 04/01/17 00:02 98.0 80 18 180/90 98 170/96 03/31/17 19:31 98.0 99 19 222/166 83 213/120 190/100 183/97 03/31/17 17:36 196/104 04/01/17 07:00 Intake Total 1360 ml Balance 1360 ml (Raquel Bowen) Review of Systems/Exam Exam Ms. Mackenzie is awake and oriented to time, place and person. Speech is fluent. Follows simple commands. Cranial nerve examination demonstrates the pupils to be equal, round, and reactive to light. EOMs intact. Facial motor and sensory function are normal and symmetrical. Neck is soft and supple. Motor: moves all four extremities Sensory examination is intact to light touch in both the upper and lower extremities, symmetrically. Deep tendon reflexes are 2+ and symmetrical in the biceps, triceps, and brachioradialis, bilaterally, in the upper extremities. In the lower extremities , the patellar and Achilles are 2+, bilaterally. There is a bilateral plantar flexion response. Hoffmanns sign is negative. There is no clonus or other abnormal reflexes noted. Cerebellar examination is intact to [id number] test (Raquel Bowen) Exam Ms. Mackenzie is awake and oriented to time, place and person. Speech is fluent. Follows simple commands. Cranial nerve examination demonstrates the pupils to be equal, round, and reactive to light. EOMs intact. Facial motor and sensory function are normal and symmetrical. Neck is soft and supple. Motor: moves all four extremities Sensory examination is intact to light touch in both the upper and lower extremities, symmetrically. Deep tendon reflexes are 2+ and symmetrical in the biceps, triceps, and brachioradialis, bilaterally, in the upper extremities. In the lower extremities , the patellar and Achilles are 2+, bilaterally. There is a bilateral plantar flexion response. Hoffmanns sign is negative. There is no clonus or other abnormal reflexes noted. Cerebellar examination is intact (Edouard López MD) Medications Current Medications Current Medications Medications (Trade) Dose Ordered Sig/Angela Route PRN Reason Start Time Stop Time Status Last Admin Dose Admin Sodium Chloride (NS Flush) 2 ml UNSCH PRN IV FLUSH FLUSH AFTER USING IV ACCESS 03/29/17 21:45 03/31/17 10:55 Sodium Chloride (NS Flush) 2 ml BID IV FLUSH 03/30/17 09:00 04/01/17 09:04 Naloxone HCl (Narcan Inj) 0.4 mg UNSCH PRN IV SEE LABEL COMMENTS 03/29/17 21:45 Enalaprilat (Vasotec Inj) 1.25 mg Q6H PRN IV PUSH SBP> OR = 180, DBP> OR = 100 03/30/17 08:00 03/31/17 17:41 Enoxaparin Sodium (Lovenox Inj) 40 mg HS SQ 03/30/17 21:00 Hold 03/31/17 21:52 Acetaminophen (Tylenol) 650 mg Q4H PRN PO headache/fever/pain1-5 03/30/17 11:00 04/01/17 11:21 Carvedilol (Coreg) 6.25 mg BID PO 03/30/17 21:00 04/01/17 09:03 Gabapentin (Neurontin) 400 mg TID PO 03/30/17 18:00 04/01/17 12:40 Ziprasidone (Geodon) 80 mg BID PO 03/30/17 21:00 04/01/17 09:03 Pantoprazole Sodium (Protonix) 20 mg DAILY PO 03/31/17 09:00 04/01/17 09:04 Lisinopril (Prinivil) 10 mg DAILY PO 03/31/17 09:00 04/01/17 09:03 Cholecalciferol (Vitamin D3) 5,000 units DAILY PO 03/31/17 15:45 04/01/17 09:02 Cyanocobalamin (Vitamin B12) 1,000 mcg DAILY PO 04/01/17 09:00 04/01/17 09:04 Thiamine HCl (Vitamin B1) 100 mg DAILY PO 04/01/17 09:00 04/01/17 09:03 Nifedipine (Procardia Xl) 60 mg DAILY PO 04/01/17 09:00 04/01/17 09:02 Clonidine (Catapres) 0.1 mg Q6H PRN PO SBP>160, DBP>90 03/31/17 20:15 04/01/17 00:09 (Raquel Bowen) Medical Decision Making MDM Remarks 71 year old female with AMS, Encephalopathy CT Brain shows ventriculomegaly, ?NPH vs atrophy (Raquel Bowen) Plan Plan Remarks cont neurology work up MRI Brain pending (Raquel Bowen) Attending Statement Neuro. Continue neuro checks. Neurology consult appreciated. MRI brain was reviewed. Pulmonary Continue aggressive pulmonary toilette, nasotracheal suction, and breathing treatments with nebulizers. PT and OT evaluation Nutrition. Oral diet Renal. monitor closely urine output, BUN and creatinine Endocrine. Monitor serial Acu checks and SSI as needed in detail Right lower extremity Edema greater than left. US bilateral lower extremities to rule out DVT Right ankle pain with edema. Right ankle x-ray reviewed and reveals mild soft tissue swelling involving the medial and lateral malleoli. No acute fracture dislocation. Plantar calcaneal spur Hypokalemia potassium 3.0. Replaced in ED recheck in a.m. Lactic acid elevated 2.5/ Blood cell count 3.2 neutrophils 72.6% Urinalysis reviewed reveals hyper chain I urine glucose negative nitrates negative leukocyte esterase no culture indicated Monitor for signs of infection Protonix for stress ulcer prophylaxis Adolph hose and SCD's for DVT prophylaxis The exam, history, and the medical decision-making described in the above note were completed with the assistance of the mid-level provider. I reviewed and agree with the findings presented. I attest that I had a [id number] encounter with the patient on the same day, and personally performed and documented my assessment and findings in the medical record. (Edouard López MD) Raquel Bowen Apr 01, 2017 16:23 Edouard López MD Apr 02, 2017 12:52
--- NOTE | 2017-04-01 19:00 | HHI.PR ---
Review/Management Diagnosis confusion, syncope. possible sz ventriculomegally--possible NPH. Her gait is apraxic and could be due to NPH. I agree with plan to proceed with lumbar drain. Diagnosis/Plan: Subjective Subjective Comments No acute events reported Dr López note appreciated Active Medications Current Medications Medications (Trade) Dose Ordered Sig/Angela Route Start Time Stop Time Status Last Admin (NS Flush) 2 ml UNSCH PRN IV FLUSH 03/29/17 21:45 03/31/17 10:55 (NS Flush) 2 ml BID IV FLUSH 03/30/17 09:00 04/01/17 09:04 (Narcan Inj) 0.4 mg UNSCH PRN IV 03/29/17 21:45 (Vasotec Inj) 1.25 mg Q6H PRN IV PUSH 03/30/17 08:00 03/31/17 17:41 (Lovenox Inj) 40 mg HS SQ 03/30/17 21:00 Hold 03/31/17 21:52 (Tylenol) 650 mg Q4H PRN PO 03/30/17 11:00 04/01/17 11:21 (Coreg) 6.25 mg BID PO 03/30/17 21:00 04/01/17 09:03 (Neurontin) 400 mg TID PO 03/30/17 18:00 04/01/17 18:11 (Geodon) 80 mg BID PO 03/30/17 21:00 04/01/17 09:03 (Protonix) 20 mg DAILY PO 03/31/17 09:00 04/01/17 09:04 (Prinivil) 10 mg DAILY PO 03/31/17 09:00 04/01/17 09:03 (Vitamin D3) 5,000 units DAILY PO 03/31/17 15:45 04/01/17 09:02 (Vitamin B12) 1,000 mcg DAILY PO 04/01/17 09:00 04/01/17 09:04 (Vitamin B1) 100 mg DAILY PO 04/01/17 09:00 04/01/17 09:03 (Procardia Xl) 60 mg DAILY PO 04/01/17 09:00 04/01/17 09:02 (Catapres) 0.1 mg Q6H PRN PO 03/31/17 20:15 04/01/17 00:09 Allergies Allergies Coded Allergies No Known Allergies (Verified03/29/17) Review of Systems All other ROS: ROS reviewed as documented in chart Exam I&O / VS 03/31/17 03/31/17 04/01/17 15:00 23:00 07:00 Intake Total 240 ml 120 ml 1000 ml Balance 240 ml 120 ml 1000 ml Intake Oral 240 ml 120 ml 1000 ml # Voids 3 3 # Bowel Movements 3 Vital Signs Date Time Temp Pulse Resp B/P Pulse Ox O2 Delivery O2 Flow Rate FiO2 04/01/17 16:00 96.0 65 18 130/83 95 Manual Cuff/Auscultation Automatic Cuff 04/01/17 08:22 98.2 72 17 162/84 97 164/84 182/99 04/01/17 08:00 85 04/01/17 05:07 70 04/01/17 04:00 98.0 70 16 114/59 99 04/01/17 00:02 98.0 80 18 180/90 98 170/96 03/31/17 19:31 98.0 99 19 222/166 83 213/120 190/100 183/97 General: Alert and Oriented, No acute distress Eye: EOMI Respiratory: Non-labored respirations Cardiology: Normal rate Musculoskeletal: ROM Neurologic: Alert, Oriented, Normal sensory, Normal motor, No focal defects, CN II-XII intact, Gag reflex normal, Normal DTR's Psychiatric: Cooperative, Appropriate mood & affect, Normal judgement Exam Comments alert, oriented times two, follow commands, recalls 3/3 words in 3 min. Cn intact Motor no focal deficits Her gait is very apraxic Objective Micro and Labs Laboratory Tests Test 04/01/17 13:12 Sodium Level 143 Potassium Level 3.2 Chloride Level 106 Carbon Dioxide Level 29.5 Anion Gap 8 Blood Urea Nitrogen 5 Creatinine 0.64 Estimat Glomerular Filtration 111 Rate Random Glucose 86 Calcium Level 8.6 Date/Time Procedure Status Source Growth 03/29/17 19:10 Aerobic Blood Culture - Preliminary Resulted Blood Peripheral NO GROWTH IN 3 DAYS 03/29/17 19:10 Anaerobic Blood Culture - Preliminary Resulted Blood Peripheral NO GROWTH IN 3 DAYS Hong Aarujo PhD Apr 01, 2017 19:00
[2017-04-02] VITALS (7 sets, daily range): BP systolic 117–175; BP diastolic 79–95; PULSE 71–78; RESP 17–21; TEMP 97.7–99.3; O2SAT 97–99
[2017-04-02] MEDS: ACETAMINOPHEN 325 MG TAB PO PRN (05:32)
--- NOTE | 2017-04-02 09:43 | HHI.PR ---
Subjective Remarks Follow-up for encephalopathy. The patient states she is doing okay today. She does wish that she could go home. She states she was able to walk some with PT since she's been here. She states that she uses a walker at home. She states that she lives with her daughter and her sister. She denies any lightheadedness , dizziness, unsteadiness whenever she walks. She states the month is April, the year is 2018, knows she is in [place], knows her addressed, knows the president is Salma. She states that she doesn't really know the results of the testing that is been done here. She leaves the doctor talked to her sister. She states normally she and her daughter make medical decisions for her together. At this time, she would be agreeable for lumbar drain and would like to have it done today if possible. Discussed with RN. Objective Vitals Vital Signs Date Time Temp Pulse Resp B/P Pulse Ox O2 Delivery O2 Flow Rate FiO2 04/02/17 08:03 99.3 75 17 153/82 99 157/88 175/95 04/02/17 04:00 97.9 76 18 138/87 04/02/17 02:20 75 04/02/17 00:12 97.7 76 18 117/79 97 04/01/17 20:24 97.0 78 18 128/74 97 124/83 148/88 04/01/17 16:00 96.0 65 18 130/83 95 Manual Cuff/Auscultation Automatic Cuff Result Diagram: 03/31/17 0529 04/01/17 1312 Imaging Last Impressions Knee X-Ray 03/30/17 0000 Signed Impressions: Service Date/Time: Thursday, March 30, 2017 08:29 - CONCLUSION: Mild/moderate primary degenerative arthritis. Wilver Daniels MD Carotid Artery Ultrasound 03/30/17 0000 Signed Impressions: Service Date/Time: Thursday, March 30, 2017 10:49 - CONCLUSION: 1. There is stable atherosclerotic plaquing at the origin of the right internal carotid artery without significant change compared to 2015. 2. No focal high grade or hemodynamically significant stenosis. Wilver Daniels MD Ankle X-Ray 03/29/17 1917 Signed Impressions: Service Date/Time: Wednesday, March 29, 2017 19:23 - CONCLUSION: 1. Mild soft tissue swelling involving the medial and lateral malleoli. 2. No acute fracture or dislocation. 3. Plantar calcaneal spur. Kashif Varela MD Head CT 03/29/171857 Signed Impressions: Service Date/Time: Wednesday, March 29, 2017 20:21 - CONCLUSION: 1. Ventriculomegaly suggesting moderate central cerebral atrophy versus hydrocephalus,. Clinical correlation is recommended. 2. Moderate periventricular and subcortical white matter small vessel ischemic changes bilaterally. 3. No acute infarct, acute hemorrhage, mass effect or extra- axial fluid collections. Kashif Varela MD Chest X-Ray 03/29/171857 Signed Impressions: Service Date/Time: Wednesday, March 29, 2017 19:06 - CONCLUSION: 1. Mild cardiomegaly. 2. No acute focal pulmonary infiltrate or pulmonary vascular congestion. 3. Degenerative changes and scoliosis of the thoracic spine. Kashif Varela MD Pelvis X-Ray 03/29/17 0000 Signed Impressions: Service Date/Time: Wednesday, March 29, 2017 19:16 - CONCLUSION: 1. No acute fracture or dislocation of the bony pelvis. 2. Degenerative changes and scoliosis of the lumbar spine. Kashif Varela MD Lower Extremity Ultrasound 03/29/17 0000 Signed Impressions: Service Date/Time: Wednesday, March 29, 2017 23:41 - CONCLUSION: Normal examination. Cameron Angelo MD Objective Remarks GENERAL: Well-developed well-nourished. In no acute distress. Oriented 3. SKIN: Warm and dry. No lesions noted. HEENT: Normocephalic. Pupils equal and round. Mucous membranes pink and moist. CARDIOVASCULAR: Regular rate and rhythm. No murmur appreciated. RESPIRATORY: No accessory muscle use. Clear to auscultation. Breath sounds equal bilaterally. GASTROINTESTINAL: Abdomen soft, non-tender, nondistended. Bowel sounds x4. MUSCULOSKELETAL: No obvious deformities. No clubbing or cyanosis. No edema. NEUROLOGICAL: Awake and alert. No focal neurological deficits. Moves upper and lower extremities spontaneously. Normal speech. Strength 4/5 in all extremities. Slow with finger-nose testing, but no gross ataxia. PSYCHIATRIC: Appropriate mood and affect; insight and judgment fair to normal. Date of Insertion: March 29, 2017 Date of Removal: March 31, 2017 A/P Problem List: (1) Altered mental status ICD Code: R41.82 Status: Acute Assessment and Plan 71 year old female patient with hx of dementia, rheumatoid arthritis, lupus, anxiety/depression/schizophrenia on Geodon, breast cancer s/p left mastectomy, HTN, GERD, neuropathy. Patient was brought by her sister to the hospital because she wasn't doing well, increased confusion, and falls. Per ER report patient's sister found her on the floor noted to be confused. Patient does not recall being on the floor. Acute Metabolic Encephalopathy: hypertensive encephalopathy vs NPH vs consider worsening dementia and schizophrenia, unclear if patient compliant with medications. Reviewed: CT head shows Ventriculomegaly suggesting moderate central cerebral atrophy versus hydrocephalus; Moderate periventricular and subcortical white matter small vessel ischemic changes bilaterally; No acute infarct, acute hemorrhage, mass effect or extra-axial fluid collections. Brain MRI w/&w/out contrast showed prominent ventricles, out of proportion to degree of sulcal dilatation; suspicious normal pressure hydrocephalus. Blood cultures with NGTD. Echocardiogram with mild LVH, normal systolic function, EF 65-70%. EtOH level and toxicology screen negative. ABG reviewed and unremarkable. Carotid ultrasound stable from previous with no focal high-grade stenosis. -continue serial neuro checks -Continuous telemetry monitoring, no acute events -consulted neurology, appreciate recommendations -EEG results pending -PT/OT eval, recommends HHC, case management arranged Suspect Normal Pressure Hydrocephalus: seen on brain MRI as above. Could definitely contribute to above symptoms. -consulted neurosurgery -seen by Dr. López, recommends trial of lumbar drain placement Hypokalemia: Replaced orally. Magnesium within normal limits. -Monitor. Accelerated Hypertension: suspect secondary to noncompliance, patient only taking Coreg at home, supposed to also be on lisinopril -Continue patient's carvedilol 6.25mg bid -added lisinopril 10mg daily -added nifedipine XL 60mg daily -IV Vasotec prn and po Clonidine prn -Improved. Monitor BP, adjust antihypertensives as needed Schizophrenia: chronic -continue patient's Geodon Vitamin D Deficiency: vit D level 11.1 -started on cholecalciferol Mild Rhabdomyolysis: secondary to fall, CK 595 -encourage po intake, patient drinking fluids DVT prophylaxis: Lovenox on hold. SCDs. Discharge Planning Follow-up with neurosurgery recommendations. Discussed with case management, patient does meet inpatient criteria. HHC at discharge. 1015 per report from neurosurgery, lumbar drain can be done as outpatient and patient is cleared from their perspective for discharge. Follow-up results of EEG. Problem Qualifiers (1) Altered mental status: Qualified Code: R41.0 - Disorientation Zachary Colbert Apr 02, 2017 09:43
[2017-04-02] MEDS: CARVEDILOL 6.25 MG TAB PO SCH (10:01)
[2017-04-02] MEDS: SODIUM CHLORIDE 0.9% FLUSH 10 ML FLUSH IV FLUSH SCH (10:01)
[2017-04-02] MEDS: THIAMINE HCL 100 MG TAB PO SCH (10:02)
[2017-04-02] MEDS: PANTOPRAZOLE SOD 20 MG DELAYED RELEASE TAB PO SCH (10:02)
[2017-04-02] MEDS: CYANOCOBALAMIN 1,000 MCG TAB PO SCH (10:02)
[2017-04-02] MEDS: NIFEdipine 60 MG SUSTAINED RELEASE TAB PO SCH (10:02)
[2017-04-02] MEDS: CHOLECALCIFEROL (VIT D3) 5000 UNIT CAP PO SCH (10:02)
[2017-04-02] MEDS: LISINOPRIL 10 MG TAB PO SCH (10:02)
[2017-04-02] MEDS: ZIPRASIDONE HCL 80 MG CAP PO SCH (10:02)
[2017-04-02] MEDS: GABAPENTIN 400 MG CAP PO SCH ×2 (10:03→13:50)
--- NOTE | 2017-04-02 14:09 | MG ---
cc: OTILIO BALDWIN MD, JAMES A. M.D. Lab No: Date: : 1945 Sex: F REFERRING PHYSICIAN Dr. Araujo READING PHYSICIAN Dr. Baldwin MEDICAL HISTORY A 71-year-old female found down at home altered and confused. History of breast cancer, left mastectomy, hypertension, tobacco abuse, headaches, renal disease, depression, anxiety, multiple falls and hyperlipidemia. MEDICATIONS Vitamin B12, thiamine, Catapres, vitamin-D3, Protonix, lisinopril, Coreg, Geodon, Neurontin, Tylenol, Vasotec. DESCRIPTION The background activity is 5-6 Hz theta, intermittent at times with normal background activity of alpha rhythm. There is excessive movement artifact. During the recording the patient became drowsy with slowing and drop out of the posterior background rhythm and transition to stage II sleep with the appearance of vertex wave K-complexes and sleep spindles. Photic stimulation did not illicit a driving response. Hyperventilation was not done. There were no electrographic seizures or epileptiform discharges noted during the recording. INTERPRETATION This is an abnormal awake and asleep EEG recording. There is mild background slowing with intermittent generalized slowing that may indicate mild encephalopathy. The absence of electrographic seizures or epileptiform discharges do not exclude a diagnosis of epilepsy. Clinical correlation is recommended. Otilio Baldwin MD RGO/BT /12:02 PM /2:02 PM [facility]at[facility]
[2017-04-02] MEDS ORDERED: NIFE60TA8 PO (15:39)
[2017-04-02] MEDS ORDERED: LISI10TA3 PO (15:39)
[2017-04-02] MEDS ORDERED: CHOL5000 PO (15:47)
--- NOTE | 2017-04-02 15:48 | HHI.DS ---
Discharge Summary Admission Date Apr 02, 2017 at 09:40 Discharge Date: Apr 02, 2017 Admitting Diagnosis AMS, ventriculomegaly (1) Altered mental status ICD Code: R41.82 (2) Hypertension ICD Code: I10 Diagnosis: Secondary (3) NPH (normal pressure hydrocephalus) ICD Code: G91.2 Diagnosis: Principal Procedures None Brief History - From Admission This is a 71 year old female patient with a past medical history which includes : rheumatoid arthritis, lupus, anxiety/depression/psychiatric illness on Geodon , breast cancer s/p left mastectomy, HTN, GERD, neuropathy. Patient is alert and oriented to person and place only, poor historian. Information gathered from patient as well as prior charting. Patient reports her sister brought her to the hospital because she wasn't doing well, but unable to elaborate. Per ER report patient's sister found her on the floor noted to be confused. Patient does not recall being on the floor. Does not recall falling. Per ER documentation patient was last seen normal around 11 AM 03/29/17. Patient denies chest pain, SOB, N/V/D, fevers, chill, cough congestion, blood in stool, increased urinary frequency, dysuria. Glucose upon arrival 189. Patient notes to be drowsy drifting off to sleep through out H&P process CBC/BMP: 03/31/17 0529 04/01/17 1312 Significant Findings Laboratory Tests Test 03/31/17 04/01/17 05:29 13:12 Red Blood Count 3.59 MIL/MM3 (4.00-5.30) Hemoglobin 11.1 GM/DL (11.6-15.3) Hematocrit 33.2 % (35.0-46.0) Monocytes (%) (Auto) 17.0 % (0.0-8.0) Neutrophils # (Auto) 1.7 TH/MM3 (1.8-7.7) Potassium Level 3.1 MEQ/L 3.2 MEQ/L (3.5-5.1) (3.5-5.1) Blood Urea Nitrogen 6 MG/DL (7-18) 5 MG/DL (7-18) Total Creatine Kinase 595 U/L (26-192) HDL Cholesterol 67.1 MG/DL (40.0-60.0) 25-Hydroxy Vitamin D Total 11.1 ng/ML (30-100) Imaging Last Impressions Brain MRI 03/31/17 0000 Signed Impressions: Service Date/Time: Friday, March 31, 2017 13:22 - CONCLUSION: Prominent ventricles, out of proportion to degree of sulcal dilatation. Suspicious normal pressure hydrocephalus as suggested. Bobo Loco MD FACR Knee X-Ray 03/30/17 0000 Signed Impressions: Service Date/Time: Thursday, March 30, 2017 08:29 - CONCLUSION: Mild/moderate primary degenerative arthritis. Wilver Daniels MD Carotid Artery Ultrasound 03/30/17 0000 Signed Impressions: Service Date/Time: Thursday, March 30, 2017 10:49 - CONCLUSION: 1. There is stable atherosclerotic plaquing at the origin of the right internal carotid artery without significant change compared to 2015. 2. No focal high grade or hemodynamically significant stenosis. Wilver Daniels MD Ankle X-Ray [id number]/29/[id number] Signed Impressions: Service Date/Time: Wednesday, March 29, 2017 19:23 - CONCLUSION: 1. Mild soft tissue swelling involving the medial and lateral malleoli. 2. No acute fracture or dislocation. 3. Plantar calcaneal spur. Kashif Varela MD Head CT [id number]/29/[id number] Signed Impressions: Service Date/Time: Wednesday, March 29, 2017 20:21 - CONCLUSION: 1. Ventriculomegaly suggesting moderate central cerebral atrophy versus hydrocephalus,. Clinical correlation is recommended. 2. Moderate periventricular and subcortical white matter small vessel ischemic changes bilaterally. 3. No acute infarct, acute hemorrhage, mass effect or extra- axial fluid collections. Kashif Varela MD Chest X-Ray 03/29/[id number] Signed Impressions: Service Date/Time: Wednesday, March 29, 2017 19:06 - CONCLUSION: 1. Mild cardiomegaly. 2. No acute focal pulmonary infiltrate or pulmonary vascular congestion. 3. Degenerative changes and scoliosis of the thoracic spine. Kashif Varela MD Pelvis X-Ray 03/29/17 0000 Signed Impressions: Service Date/Time: Wednesday, March 29, 2017 19:16 - CONCLUSION: 1. No acute fracture or dislocation of the bony pelvis. 2. Degenerative changes and scoliosis of the lumbar spine. Kashif Varela MD Lower Extremity Ultrasound 03/29/17 0000 Signed Impressions: Service Date/Time: Wednesday, March 29, 2017 23:41 - CONCLUSION: Normal examination. Cameron Angelo MD PE at Discharge GENERAL: Well-developed well-nourished. In no acute distress. Oriented 3. SKIN: Warm and dry. No lesions noted. HEENT: Normocephalic. Pupils equal and round. Mucous membranes pink and moist. CARDIOVASCULAR: Regular rate and rhythm. No murmur appreciated. RESPIRATORY: No accessory muscle use. Clear to auscultation. Breath sounds equal bilaterally. GASTROINTESTINAL: Abdomen soft, non-tender, nondistended. Bowel sounds x4. MUSCULOSKELETAL: No obvious deformities. No clubbing or cyanosis. No edema. NEUROLOGICAL: Awake and alert. No focal neurological deficits. Moves upper and lower extremities spontaneously. Normal speech. Strength 4/5 in all extremities. Slow with finger-nose testing, but no gross ataxia. PSYCHIATRIC: Appropriate mood and affect; insight and judgment fair to normal. Pt update on day of discharge Neurosurgery was contacted who recommended outpatient follow-up for lumbar drain and patient cleared from neurosurgery for discharge. EEG showed mild encephalopathy. Patient is alert and oriented. She is agreeable for [facility] PT. Discharged home today. Hospital Course 71 year old female patient with hx of dementia, rheumatoid arthritis, lupus, anxiety/depression/schizophrenia on Geodon, breast cancer s/p left mastectomy, HTN, GERD, neuropathy. Patient was brought by her sister to the hospital because she wasn't doing well, increased confusion, and falls. Per ER report patient's sister found her on the floor noted to be confused. Patient does not recall being on the floor. Acute Metabolic Encephalopathy: hypertensive encephalopathy vs NPH vs consider worsening dementia and schizophrenia, unclear if patient compliant with medications. Reviewed: CT head shows Ventriculomegaly suggesting moderate central cerebral atrophy versus hydrocephalus; Moderate periventricular and subcortical white matter small vessel ischemic changes bilaterally; No acute infarct, acute hemorrhage, mass effect or extra-axial fluid collections. Brain MRI w/&w/out contrast showed prominent ventricles, out of proportion to degree of sulcal dilatation; suspicious normal pressure hydrocephalus. Blood cultures with NGTD. Echocardiogram with mild LVH, normal systolic function, EF 65-70%. EtOH level and toxicology screen negative. ABG reviewed and unremarkable. Carotid ultrasound stable from previous with no focal high-grade stenosis. EEG with mild encephalopathy, no definite epileptic activity. -consulted neurology, recommended lumbar drain with neurosurgery, see below -PT/OT eval, recommends [facility], case management arranged Suspect Normal Pressure Hydrocephalus: seen on brain MRI as above. Could definitely contribute to above symptoms. -consulted neurosurgery, seen by Dr. López, recommended trial of lumbar drain placement as outpatient -Emphasized outpatient follow-up with the patient Accelerated Hypertension: suspect secondary to noncompliance, patient only taking Coreg at home, supposed to also be on lisinopril -Continue patient's carvedilol 6.25mg bid -added lisinopril 10mg daily -added nifedipine XL 60mg daily -Improved. Vitamin D Deficiency: vit D level 11.1 -started on cholecalciferol Pt Condition on Discharge: Stable Discharge Disposition: Disch w/ Home Health Serv Discharge Time: > 30 minutes Discharge Instructions DIET: Follow Instructions for: Heart Healthy Diet Activities you can perform: Regular-No Restrictions Other Activity Instructions: Ambulate using a walker Follow up Referrals: Neurology - 2 Weeks with Hong Araujo PhD Neurosurgery - 3-5 Days with Edouard López MD PCP Follow-up - 1 Week New Medications: Cholecalciferol (Vitamin D3) 5,000 Unit Cap 5000 UNITS PO DAILY Nutritional Supplement #30 CAP Lisinopril (Lisinopril) 10 Mg Tab 10 MG PO DAILY Blood Pressure Management #30 TAB Nifedipine ER 24 HR (Nifedipine ER 24 HR) 60 Mg Tab 60 MG PO DAILY Blood Pressure Management #30 TAB Continued Medications: Carvedilol (Carvedilol) 6.25 Mg Tab 6.25 MG PO BID #60 Ref 0 TAB Emollient (Eucerin Original Healing) 1 Lot Lot TOPICAL Gabapentin (Neurontin) 400 Mg Cap 400 MG .ROUTE TID #30 Ref 0 CAP Omeprazole (Omeprazole) 10 Mg Cap 10 MG .ROUTE BID #30 Ref 0 CAP Ziprasidone (Ziprasidone) 80 Mg Cap 80 MG .ROUTE BID #60 Ref 0 CAP Zachary Colbert Apr 02, 2017 15:48
== END 2017-04-02 18:34 | disposition home or self-care (01) | DRG 71 ==
LOC: NEPC 18:54 → NEDA 21:22 → INTOOBSV 21:22 → NEPFCDU 22:47 → OBSVTOIN 04-02 09:40
PROVIDERS: ADMIT Internal Medicine; ATTEND Internal Medicine
DX: G93.41 Metabolic encephalopathy (principal); G91.2 (Idiopathic) normal pressure hydrocephalus; E87.2 Acidosis; M62.82 Rhabdomyolysis; M32.9 Systemic lupus erythematosus, unspecified; E55.9 Vitamin D deficiency, unspecified; G62.9 Polyneuropathy, unspecified; M06.9 Rheumatoid arthritis, unspecified; I10 Essential (primary) hypertension; Z85.3 Personal history of malignant neoplasm of breast; K21.9 Gastro-esophageal reflux disease without esophagitis; F17.210 Nicotine dependence, cigarettes, uncomplicated; F41.9 Anxiety disorder, unspecified; F32.9 Major depressive disorder, single episode, unspecified; E87.6 Hypokalemia; Z91.14 Patient's other noncompliance with medication regimen; F20.9 Schizophrenia, unspecified; W19.XXXA Unspecified fall, initial encounter
CPT/HCPCS: 36600; 51702; 70450; 70553; 71010; 72170; 73564; 73610; 80048; 80053; 80061; 80307; 81001; 82306; 82550; 82552; 82607; 82805; 83605; 83735; 83921; 84443; 84484; 85025; 85610; 85730; 87040; 93005; 93306; 93880; 93970; 95819; 96360; A9579; G8987-GO; G8987-GP; G8988-GO; G8988-GP; J1650; J2060; J7030

== ENCOUNTER 2018-01-21 12:11 | Inpatient (IN) | payer MEDICARE, MEDICAID ==
[~2018-01-21] VITALS: Ht 162.6 cm; Wt 60.6 kg
[~2018-01-21 12:11] MED LIST changes: -CARV6.25 PO; +CARV6.252 PO; +CHOL5000 PO; -CIPR250T2 PO; -ECOT81TA2 PO; +EMOLLOT TOPICAL; -GABA400 PO; -GEOD80CA PO; -LACT20SO4 PO; -LISI10 PO; +LISI10TA3 PO; +NEUR400C; +NIFE60TA8 PO; +OMEP10CA; -OMEP20TA39 PO; +ZIPR1CAP12
[2018-01-21 12:55] VITALS: BP 131/79; PULSE 92; RESP 17; TEMP 98.7; O2SAT 98
--- NOTE | 2018-01-21 13:18 | PD ---
HPI Chief Complaint: Psychiatric Symptoms Time Seen by Provider: 12:47 Travel History International Travel<30 days: No Contact w/Intl Traveler<30days: No Traveled to known affect area: No History of Present Illness HPI This is a 72-year-old female with a history of schizoaffective disorder and possible NPH presents emergency department for evaluation under [place]. Her sister who is also her primary caregiver Ms. Rahman petition the court for EX parte and was granted. The patient according to the ex parte has been seeing her neighbors who have been per persecuting her and controlling her thoughts. I discussed the patient with patient's daughter Li [phone] who states the patient has been having these symptoms on and off for years, she states she was fairly stable on her Geodon but then was switched to trazodone and she is not doing as well on it. On the last visit in April the patient was having a CAT scan which showed hydrocephalus and the concern was for normal pressure hydrocephalus, she had consult for neurology and neurosurgery and neurosurgery wanted to follow her up as an outpatient. She never followed up with this appointment. The patient has no physical complaints but does state that the neighbors have been persecuting her and trying to control her thoughts. She is alert and awake and oriented, she certainly is quite bizarre and thought content. She has good insight to why she is here and states her daughter is very vengeful. No chest pain or shortness breath no nausea vomiting or diarrhea peer Symptoms are moderate, for the past years, gradually progressive, associated signs and symptoms in context as above PFSH Past Medical History Arthritis: Yes Blood Disorders: No Anxiety: Yes Depression: Yes Heart Rhythm Problems: No Cancer: Yes (LEFT BREAST MASTECTOMY) Cardiovascular Problems: Yes High Cholesterol: Yes Chemotherapy: Yes Chest Pain: No Congestive Heart Failure: No Diabetes: No Diminished Hearing: No Endocrine: No Gastrointestinal Disorders: Yes (ACID REFLUX) GERD: Yes Genitourinary: No Headaches: Yes Hepatitis: No Hiatal Hernia: No Hypertension: Yes Immune Disorder: Yes (RHEUMATOID ARTHRITIS, LUPUS) Implanted Vascular Access Dvce: No Musculoskeletal: Yes (RHEUMATOID ARTHRITIS) Neurologic: Yes Psychiatric: Yes Reproductive: No Respiratory: No Migraines: No Radiation Therapy: Yes Thyroid Disease: No Tetanus Vaccination: Unknown Influenza Vaccination: No Menopausal: Yes Past Surgical History Abdominal Surgery: No AICD: No Cardiac Surgery: No Section: Yes Ear Surgery: No Endocrine Surgery: No Eye Surgery: No Genitourinary Surgery: Yes (hernia repair with mesh) Gynecologic Surgery: Yes (C SECTION) Joint Replacement: No Mastectomy: Yes (LEFT) Neurologic Surgery: No Oral Surgery: No Pacemaker: No Thoracic Surgery: Yes (mastectomy left side flap closure) Other Surgery: Yes (ENDOSCOPY 11/04/10) Social History Alcohol Use: No Tobacco Use: Yes (11/02 PPD) Substance Use: No Allergies-Medications (Allergen,Severity, Reaction): Coded Allergies: No Known Allergies (Verified Adverse Reaction, Unknown, 01/21/18) Reported Meds & Prescriptions Reported Meds & Active Scripts Active Vitamin D3 (Cholecalciferol) 5,000 Unit Cap 5,000 Units PO DAILY Nifedipine ER 24 HR (Nifedipine) 60 Mg Tab 60 Mg PO DAILY Lisinopril 10 Mg Tab 10 Mg PO DAILY Reported Pain Reliever Pm 500-25 mg (Diphenhydramine-Acetaminophen) 500 Mg-25 Mg Tab Carvedilol 3.125 Mg Tab 3.125 Mg PO BID Omeprazole 40 Mg Cap 40 Mg DAILY Bc Powder Packet (Aspirin/Caffeine) 845 Mg-65 Mg Powd.pack Eucerin Original Healing (Emollient) 1 Lot Lot TOPICAL Neurontin (Gabapentin) 400 Mg Cap 400 Mg .ROUTE TID Ziprasidone 80 Mg Cap 80 Mg .ROUTE BID Review of Systems Except as stated in HPI: all other systems reviewed are Neg Physical Exam Narrative GENERAL: Well-developed well-nourished, no obvious distress, smells of cigarette smoke peer SKIN: Focused skin assessment warm/dry. HEAD: Atraumatic. Normocephalic. EYES: Pupils equal and round. No scleral icterus. No injection or drainage. ENT: No nasal bleeding or discharge. Mucous membranes pink and moist. NECK: Trachea midline. No JVD. CARDIOVASCULAR: Regular rate and rhythm. No murmur appreciated. RESPIRATORY: No accessory muscle use. Clear to auscultation. Breath sounds equal bilaterally. GASTROINTESTINAL: Abdomen soft, non-tender, nondistended. Hepatic and splenic margins not palpable. MUSCULOSKELETAL: No obvious deformities. No clubbing. No cyanosis. No edema. NEUROLOGICAL Cranial nerves II through XII are grossly intact and nonfocal, 5 out of 5 strength in all 4 extremities. The patient ambulates without ataxia but does cruise from table to door handle. She is able to ambulate all the way to the desk without problems PSYCHIATRIC: Alert and awake and oriented 4, fairly good insight, judgment not assessed, she certainly does have delusions of persecution. Data Data Last Documented VS Vital Signs Date Time Temp Pulse Resp B/P (MAP) Pulse Ox O2 Delivery O2 Flow Rate FiO2 01/21/18 18:56 98.1 78 15 181/109 (133) 98 Room Air Orders Orders Complete Blood Count With Diff (01/21/18 12:52) Comprehensive Metabolic Panel (01/21/18 12:52) Thyroid Stimulating Hormone (01/21/18 12:52) Urinalysis - C+S If Indicated (01/21/18 12:52) Psych Screen (01/21/18 12:52) Drug Screen, Random Urine (01/21/18 12:52) Alcohol (Ethanol) (01/21/18 12:52) Salicylates (Aspirin) (01/21/18 12:52) Tylenol (Acetaminophen) (01/21/18 12:52) Ct Brain W/O Iv Contrast(Rout) (01/21/18 ) Cath For Specimen (01/21/18 14:59) Consult Neurosurgery (01/21/18 ) (Hub Use Only)Inp Phy Cons/Ref (01/21/18 ) Clonidine (Catapres) (01/21/18 19:00) Ziprasidone Hydrochloride (Geodon) (01/21/18 19:00) Nicotine 7 Mg Patch.24 Hr (Habitrol 7 M (01/21/18 19:00) Labs Laboratory Tests Test 01/21/18 13:28 01/21/18 14:48 White Blood Count 4.2 TH/MM3 Red Blood Count 3.83 MIL/MM3 Hemoglobin 11.5 GM/DL Hematocrit 36.0 % Mean Corpuscular Volume 93.9 FL Mean Corpuscular Hemoglobin 30.1 PG Mean Corpuscular Hemoglobin Concent 32.1 % Red Cell Distribution Width 14.7 % Platelet Count 213 TH/MM3 Mean Platelet Volume 7.1 FL Neutrophils (%) (Auto) 54.9 % Lymphocytes (%) (Auto) 32.9 % Monocytes (%) (Auto) 9.8 % Eosinophils (%) (Auto) 1.8 % Basophils (%) (Auto) 0.6 % Neutrophils # (Auto) 2.3 TH/MM3 Lymphocytes # (Auto) 1.4 TH/MM3 Monocytes # (Auto) 0.4 TH/MM3 Eosinophils # (Auto) 0.1 TH/MM3 Basophils # (Auto) 0.0 TH/MM3 CBC Comment DIFF FINAL Differential Comment Blood Urea Nitrogen 11 MG/DL Creatinine 1.03 MG/DL Random Glucose 88 MG/DL Total Protein 7.8 GM/DL Albumin 3.2 GM/DL Calcium Level 8.2 MG/DL Alkaline Phosphatase 85 U/L Aspartate Amino Transf (AST/SGOT) 20 U/L Alanine Aminotransferase (ALT/SGPT) 16 U/L Total Bilirubin 0.2 MG/DL Sodium Level 145 MEQ/L Potassium Level 3.1 MEQ/L Chloride Level 112 MEQ/L Carbon Dioxide Level 26.2 MEQ/L Anion Gap 7 MEQ/L Estimat Glomerular Filtration Rate 64 ML/MIN Thyroid Stimulating Hormone 3rd Gen 0.320 uIU/ML Salicylates Level 17.2 MG/DL Acetaminophen Level 4.5 MCG/ML Ethyl Alcohol Level LESS THAN 3 MG/DL Urine Color LIGHT-YELLOW Urine Turbidity CLEAR Urine pH 6.0 Urine Specific [place] 1.003 Urine Protein NEG mg/dL Urine Glucose (UA) NEG mg/dL Urine Ketones NEG mg/dL Urine Occult Blood NEG Urine Nitrite NEG Urine Bilirubin NEG Urine Urobilinogen LESS THAN 2.0 MG/DL Urine Leukocyte Esterase TRACE Urine WBC 1 /hpf Microscopic Urinalysis Comment CULT NOT INDICATED Urine Opiates Screen NEG Urine Barbiturates Screen NEG Urine Amphetamines Screen NEG Urine Benzodiazepines Screen NEG Urine Cocaine Screen NEG Urine Cannabinoids Screen NEG MDM Medical Decision Making Medical Screen Exam Complete: Yes Emergency Medical Condition: Yes Differential Diagnosis Normal pressure hydrocephalus seems unlikely, psychosis, dementia, urinary tract infection Narrative Course Patient room to the emergency department, after speaking with her daughter and sister it appears that the patient's symptoms been going on for years if not decades. She does have hydrocephalus which she has not followed up as an outpatient, this is probably due to atrophy and age affect. Patient was discussed with Amaris SYED on for psychiatry ish, discussed that she could consider doing a neurosurgery consult but in my opinion I highly doubt that the patient symptoms are due from normal pressure hydrocephalus. This would go along with the family's history as well. Let us states that to have a neurosurgery consult on the psychiatry unit and then move the patient to an inpatient medical bed would be very difficult and request that one be done prior to admission to the psychiatry unit. I think this is reasonable and I have asked Dr. Holder for a consult. He is here evaluating the patient at 1945. Patient seen and examined by Dr. Holder, he recommends controlling her symptoms probably due to either mild dementia or psychosis and an outpatient workup for her NPH. She is medically cleared for psychiatric evaluation and admission. Diagnosis Primary Impression: Psychosis Condition: Stable Kashif Wilkinson MD Jan 21, 2018 13:18
--- NOTE | 2018-01-21 13:40 | RADRPT ---
EXAM DATE/TIME: 01/21/2018 13:32 [facility] COMPARISON: CT BRAIN W/O CONTRAST, March 29, 2017, 20:21. INDICATIONS : Altered mental status for one day. RADIATION DOSE: 56.35 CTDIvol (mGy) MEDICAL HISTORY : Cardiovascular disease. Carcinoma, breast. SURGICAL HISTORY : None. ENCOUNTER: Initial ACUITY: 1 day PAIN SCALE: 4/10 LOCATION: Bilateral cranial TECHNIQUE: Multiple contiguous axial images were obtained of the head. Using automated exposure control and adj ustment of the mA and/or kV according to patient size, radiation dose was kept as low as reasonably a chievable to obtain optimal diagnostic quality images. DICOM format image data is available electro nically for review and comparison. FINDINGS: CEREBRUM: The ventricles are noted to be prominent. Scattered areas of low attenuation of the white matter. No evidence of midline shift, mass lesion, hemorrhage or acute infarction. No extra-axial fluid collec tions are seen. POSTERIOR FOSSA: The cerebellum and brainstem are intact. The 4th ventricle is midline. The cerebellopontine angle i s unremarkable. EXTRACRANIAL: The visualized portion of the orbits is intact. SKULL: The calvaria is intact. No evidence of skull fracture. CONCLUSION: 1. Ventricles are again noted to be mildly dilated but unchanged. 2. Extensive nonspecific white matter changes. Demarcus Bah MD on January 21, 2018 at 13:37 Board Certified Radiologist. This report was verified electronically.
[2018-01-21 13:59] LABS: AUTOMATED NEUTROPHIL # 2.3 TH/MM3 (1.8-7.7); BASOPHIL % 0.6 % (0.0-2.0); EOSINOPHIL # 0.1 TH/MM3 (0-0.4); EOSINOPHIL % 1.8 % (0.0-4.0); HEMOGLOBIN 11.5 GM/DL (11.6-15.3); LYMPH % 32.9 % (9.0-44.0); LYMPHOCYTE # 1.4 TH/MM3 (1.0-4.8); MEAN CELL VOLUME 93.9 FL (80.0-100.0); MEAN CORPUSCULAR HEMOGLOBIN 30.1 PG (27.0-34.0); MEAN CORPUSCULAR HGB CONC 32.1 % (32.0-36.0); MEAN PLATELET VOLUME 7.1 FL (7.0-11.0); MONO % 9.8 % (0.0-8.0); MONOCYTE # 0.4 TH/MM3 (0-0.9); NEUT % 54.9 % (16.0-70.0); PLATELET COUNT 213 TH/MM3 (150-450); RED BLOOD COUNT 3.83 MIL/MM3 (4.00-5.30); RED CELL DISTRIBUTION WIDTH 14.7 % (11.6-17.2); WHITE BLOOD COUNT 4.2 TH/MM3 (4.0-11.0)
[2018-01-21] MEDS ORDERED: CARV3.12 PO (14:02)
[2018-01-21] MEDS ORDERED: ASPI1POW8 (14:02)
[2018-01-21] MEDS ORDERED: OMEP40CA2 (14:02)
[2018-01-21] MEDS ORDERED: [UNRECOGNIZED DRUG - CODE] (14:02)
[2018-01-21 14:26] LABS: ALBUMIN 3.2 GM/DL (3.4-5.0); ALT (GPT) 16 U/L (10-53); AST (GOT) 20 U/L (15-37); BICARBONATE 26.2 MEQ/L (21.0-32.0); BLOOD UREA NITROGEN 11 MG/DL (7-18); CALCIUM 8.2 MG/DL (8.5-10.1); CHLORIDE 112 MEQ/L (98-107); CREATININE 1.03 MG/DL (0.50-1.00); GLOMERULAR FILTRATION RATE 64 ML/MIN (>89); GLUCOSE,RANDOM 88 MG/DL (74-106); SODIUM (NA) 145 MEQ/L (136-145)
[2018-01-21 14:36] LABS: ACETAMINOPHEN 4.5 MCG/ML (10.0-30.0); ALKALINE PHOSPHATASE 85 U/L (45-117); TOTAL BILIRUBIN ADULT 0.2 MG/DL (0.2-1.0); TOTAL PROTEIN 7.8 GM/DL (6.4-8.2)
[2018-01-21 15:23] LABS: BILIRUBIN, URINE NEG (NEG); BLOOD, URINE NEG (NEG); GLUCOSE,URINE NEG (NEG); KETONE, URINE NEG (NEG); NITRITE,URINE NEG (NEG); URINE COLOR LIGHT-YELLOW (YELLW/STRAW); URINE LEUKOCYTE ESTERASE TRACE (NEG)
[2018-01-21 18:56] VITALS: BP 181/109; PULSE 78; RESP 15; TEMP 98.1; O2SAT 98
[2018-01-21] MEDS: NICOTINE 7 MG/24 HR PATCH T-DERMAL ONE ×2 (19:00→22:12)
[2018-01-21] MEDS ORDERED: cloNIDine HCL 0.1 MG TAB PO ONE (19:00)
[2018-01-21] MEDS: ZIPRASIDONE HCL 20 MG CAP PO ONE ×2 (19:00→22:12)
[2018-01-21 20:00] VITALS: BP 168/72; PULSE 76; RESP 16; TEMP 98.4; O2SAT 97
--- NOTE | 2018-01-21 22:00 | MB ---
cc: Rocky MARTINES Jorge L DATE: 01/21/2018 CHIEF COMPLAINT: Agitation. HISTORY OF PRESENT ILLNESS: This is a 72-year-old female patient with history of schizoaffective disorder and history of possible normal pressure hydrocephalus who presents to the ER after a court order was issued to be evaluated. Apparently, there has been some bickering between her family and, because of this, she was brought to the emergency room. The patient was evaluated by emergency room physician who talked with her daughter who reports that this lady has been having these types of symptoms for several years and who states that the patient feels that she is persecuted and she gets into conflicts with her family. She has been taking Geodon in the past, but this has recently been switched to trazodone and her family does not feel that this is working. The patient has been evaluated in the past for normal pressure hydrocephalus with a CT scan and a brain MRI and was to undergo elective evaluation as an outpatient. The patient denies any type of complaints at the present time. Denies any headaches. She reports that she is doing well and is still awaiting further evaluation. PAST MEDICAL HISTORY: Reveals that the patient has a history of anxiety, depression, history of breast cancer, high cholesterol, acid reflux and rheumatoid arthritis. PAST SURGICAL HISTORY: Remarkable for a , hernia repair with mesh and a left mastectomy. SOCIAL HISTORY: Remarkable for use of tobacco, half a pack per day. ALLERGIES: NO KNOWN ALLERGIES. MEDICATIONS: Include vitamin D3, nifedipine, lisinopril, carvedilol, omeprazole, Neurontin and Ziprasidone. REVIEW OF SYSTEMS: Unremarkable, except for those elements in the above history. PHYSICAL EXAMINATION: VITAL SIGNS: Blood pressure of 181/109, pulse 78, temperature of 98.1, respirations of 15, pulse oximetry of 98. GENERAL: Shows a well-developed female, somewhat kyphotic. HEENT: Unremarkable. NECK: Supple with good carotid pulses bilaterally. CHEST: Symmetric. LUNGS: Clear. HEART: Shows a regular rhythm with normal heart sounds. ABDOMEN: Soft and nontender. EXTREMITIES: Clear. NEUROLOGIC: The patient is alert and awake. Her speech is fluent. She is oriented x3. She follows commands well. Her affect at the present time appears to be normal. She was recently given Geodon p.o. Cranial nerves 2-12 are intact. Motor exam is 5+/5. She is right-handed. Sensory exam is intact to touch. Deep tendon reflexes are 1+ in the upper extremities and trace in the lower extremities with negative Babinski bilaterally. Ambulates independently with mild instability IMAGING STUDIES Review of a CT scan of the brain shows evidence of what appears to be enlarged ventricles bilaterally. Previous CT showed a similar picture approximately 1 year ago as well as an MRI of the brain that was reviewed. IMPRESSION: It is possible that this lady could have normal pressure hydrocephalus, although she denies any urinary incontinence and any problems with apraxia of gait. She does not need any acute neurosurgical intervention at the present time, but should undergo evaluation as an outpatient with lumbar drainage or puncture depending on the neurosurgeon who is evaluating her. I would recommend control of her agitation at the present time for evaluation as an outpatient. Again, no neurosurgical intervention acutely needs to be performed. Rocky RUVALCABA//jaclyn , 08:13 PM , 09:06 PM [place]
[2018-01-22] VITALS (7 sets, daily range): BP systolic 130–217; BP diastolic 68–106; PULSE 69–84; RESP 18–20; TEMP 97.6–98.6; O2SAT 98–99
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
[2018-01-22] MEDS ORDERED: diphenhydrAMINE HCL 50 MG CAP PO PRN (12:45)
[2018-01-22] MEDS ORDERED: LORazepam 2 MG/ML VIAL IM PRN (12:45)
[2018-01-22] MEDS ORDERED: ALUMINUM/MAGNESIUM/SIMETH 30 ML CUP PO PRN (12:45)
[2018-01-22] MEDS ORDERED: MAGNESIUM HYDROXIDE SUSP 30 ML CUP PO PRN (12:45)
[2018-01-22] MEDS ORDERED: LORazepam 0.5 MG TAB PO PRN (12:45)
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
[2018-01-22] MEDS: PANTOPRAZOLE SOD 40 MG DELAYED RELEASE TAB PO SCH (12:59)
[2018-01-22] MEDS: GABAPENTIN 400 MG CAP PO SCH ×2 (13:00→18:00)
[2018-01-22] MEDS: cloNIDine HCL 0.1 MG TAB PO PRN ×2 (14:09→23:55)
[2018-01-22] MEDS ORDERED: POTASSIUM CHLORIDE 10 MEQ CONTROLLED RELEASE TAB PO ONE (14:30)
--- NOTE | 2018-01-22 16:35 | PD.CONS ---
HPI Service [facility] Consult Requested By Primary Care Physician Francheska Jean M.D. Diagnoses: History of Present Illness Mrs. Mackenzie is a 72 year old female. She is admitted due to an exacerbation of her schizoaffective disorder. She also has underlying depression and anxiety. When seen she appears comfortable and in no distress. A review of her blood work shows a low TSH and low potassium level. The patient complains of no associated symptoms other than chronic fatigue. No other complaints. No chest pain. No nausea or vomiting. She reports that she has a past history of thyroid problems but is currently not listed as taking any thyroid supplementations or treatments. Review of Systems Constitutional: COMPLAINS OF: Fatigue, DENIES: Fever, Chills, Change in appetite Eyes: DENIES: Blurred vision, Diplopia, Eye inflammation Respiratory: DENIES: Cough, Wheezing, Shortness of breath Cardiovascular: DENIES: Chest pain, Palpitations, Syncope Gastrointestinal: DENIES: Abdominal pain, Black stools, Bloody stools Musculoskeletal: DENIES: Joint pain, Muscle aches, Stiffness Integumentary: DENIES: Abnormal pigmentation, Pruritus, Rash, Nail changes Hematologic/lymphatic: DENIES: Bruising, Lymphadenopathy Immunologic/allergic: DENIES: Eczema, Urticaria Neurologic: DENIES: Abnormal gait, Headache, Paresthesias Psychiatric: DENIES: Anxiety, Confusion, Hallucinations Past Family Social History Allergies: Coded Allergies: No Known Allergies (Verified Allergy, Unknown, 01/21/18) Past Medical History Osteoarthritis History of breast cancer Hyperlipidemia Gastroesophageal reflux disease Headache Hypertension Rheumatoid arthritis Depression Anxiety Schizoaffective disorder Past Surgical History Hernia repair Left mastectomy Endoscopy Reported Medications Reported Meds & Active Scripts Active Vitamin D3 (Cholecalciferol) 5,000 Unit Cap 5,000 Units PO DAILY Nifedipine ER 24 HR (Nifedipine) 60 Mg Tab 60 Mg PO DAILY Lisinopril 10 Mg Tab 10 Mg PO DAILY Reported Pain Reliever Pm 500-25 mg (Diphenhydramine-Acetaminophen) 500 Mg-25 Mg Tab Carvedilol 3.125 Mg Tab 3.125 Mg PO BID Omeprazole 40 Mg Cap 40 Mg DAILY Bc Powder Packet (Aspirin/Caffeine) 845 Mg-65 Mg Powd.pack Eucerin Original Healing (Emollient) 1 Lot Lot TOPICAL Neurontin (Gabapentin) 400 Mg Cap 400 Mg .ROUTE TID Ziprasidone 80 Mg Cap 80 Mg .ROUTE BID Active Ordered Medications Administered Medications Medications (Trade) Dose Ordered Sig/Angela Route PRN Reason Start Time Stop Time Status Last Admin Dose Admin Gabapentin (Neurontin) 400 mg TID PO 01/22/18 13:00 01/22/18 13:00 Pantoprazole Sodium (Protonix) 40 mg DAILY PO 01/22/18 13:00 01/22/18 12:59 Clonidine (Catapres) 0.1 mg Q8H PRN PO SBP>180, DBP>90 01/22/18 14:00 01/22/18 14:09 Family History Patient does not know her past medical family history. Social History Patient smokes about one half pack per day Occasional alcohol use Illicit drug abuse Physical Exam Vital Signs Vital Signs Date Time Temp Pulse Resp B/P (MAP) Pulse Ox O2 Delivery O2 Flow Rate FiO2 01/22/18 14:45 98.6 71 18 173/91 (118) 98 01/22/18 14:00 84 217/98 (137) 01/22/18 13:04 01/22/18 07:20 16 01/22/18 06:19 92 17 01/22/18 04:00 97.6 70 18 130/68 (88) 98 Room Air 01/22/18 00:00 98.0 76 18 136/72 (93) 98 Room Air 01/21/18 20:00 98.4 76 16 168/72 (104) 97 Room Air 01/21/18 18:56 98.1 78 15 181/109 (133) 98 Room Air Physical Exam GENERAL: NAD, A&Ox2 HEAD: Normocephalic. NECK: Supple, trachea midline. No lymphadenopathy. EYES: No scleral icterus. No injection or drainage. CARDIOVASCULAR: Regular rate and rhythm without murmurs, gallops, or rubs. RESPIRATORY: Breath sounds equal bilaterally. No accessory muscle use. GASTROINTESTINAL: Abdomen soft, non-tender, nondistended. MUSCULOSKELETAL: No cyanosis, or edema. SKIN: Warm and dry. NEURO: No focal neurological deficitis. Result Diagram: 01/21/18 1328 01/21/18 1328 Imaging Last Impressions Head CT 01/21/18 0000 Signed Impressions: Service Date/Time: Sunday, January 21, 2018 13:32 - CONCLUSION: 1. Ventricles are again noted to be mildly dilated but unchanged. 2. Extensive nonspecific white matter changes. Demarcus Bah MD Assessment and Plan Problem List: (1) NPH (normal pressure hydrocephalus) ICD Code: G91.2 - (Idiopathic) normal pressure hydrocephalus Status: Acute (2) Altered mental status ICD Code: R41.82 - Altered mental status Status: Acute (3) Hypertension ICD Code: I10 - Essential (primary) hypertension Status: Chronic (4) Unspecified psychosis ICD Code: F29 - Unspecified psychosis not due to a substance or known physiological condition (5) Schizophrenia ICD Code: F20.9 - Schizophrenia, unspecified Status: Acute Assessment and Plan 72-year-old female admitted to psychiatry secondary to exacerbation of schizoaffective disorder. Consult placed for findings of hypokalemia and low TSH. Low TSH Check T3, T4, and repeat TSH Consider treatment based on the results Hypokalemia Replacement provided Monitor and replace as needed Schizoaffective disorder Depression Anxiety Treatment per psychiatry team Osteoarthritis Rheumatoid arthritis Hypertension Headache history Gastroesophageal reflux disease Hyperlipidemia Breast cancer history No change to baseline treatments DVT prophylaxis Patient is ambulatory, none Damian Thacker MD Jan 22, 2018 16:35
[2018-01-22] MEDS: CARVEDILOL 3.125 MG TAB PO SCH (20:11)
[2018-01-23] MEDS: CARVEDILOL 3.125 MG TAB PO SCH ×2 (00:05→20:28)
[2018-01-23] MEDS: ACETAMINOPHEN 325 MG TAB PO PRN ×4 (00:13→06:35)
[2018-01-23 00:30] VITALS: BP 124/90; PULSE 73
[2018-01-23 06:03] VITALS: BP 195/88; PULSE 56; RESP 18; TEMP 98.2; O2SAT 96
[2018-01-23] MEDS: GABAPENTIN 400 MG CAP PO SCH ×3 (08:56→17:49)
[2018-01-23] MEDS: PANTOPRAZOLE SOD 40 MG DELAYED RELEASE TAB PO SCH (08:56)
[2018-01-23] MEDS: REMOVE OLD PATCH T-DERMAL SCH (08:58)
[2018-01-23] MEDS: NICOTINE 21 MG/24 HR PATCH T-DERMAL SCH (08:58)
[2018-01-23] MEDS: CHOLECALCIFEROL (VIT D3) 5000 UNIT CAP PO SCH (08:58)
[2018-01-23] MEDS: cloNIDine HCL 0.1 MG TAB PO PRN ×2 (09:30→17:49)
[2018-01-23 10:12] LABS: AUTOMATED NEUTROPHIL # 1.4 TH/MM3 (1.8-7.7); BASOPHIL % 0.3 % (0.0-2.0); EOSINOPHIL # 0.1 TH/MM3 (0-0.4); EOSINOPHIL % 2.1 % (0.0-4.0); HEMATOCRIT 34.2 % (35.0-46.0); HEMOGLOBIN 11.1 GM/DL (11.6-15.3); LYMPH % 42.6 % (9.0-44.0); LYMPHOCYTE # 1.4 TH/MM3 (1.0-4.8); MEAN CELL VOLUME 93.3 FL (80.0-100.0); MEAN CORPUSCULAR HEMOGLOBIN 30.4 PG (27.0-34.0); MEAN CORPUSCULAR HGB CONC 32.6 % (32.0-36.0); MEAN PLATELET VOLUME 7.2 FL (7.0-11.0); MONO % 13.7 % (0.0-8.0); MONOCYTE # 0.5 TH/MM3 (0-0.9); NEUT % 41.3 % (16.0-70.0); PLATELET COUNT 183 TH/MM3 (150-450); RED BLOOD COUNT 3.66 MIL/MM3 (4.00-5.30); RED CELL DISTRIBUTION WIDTH 14.1 % (11.6-17.2); WHITE BLOOD COUNT 3.4 TH/MM3 (4.0-11.0)
[2018-01-23 10:47] LABS: THYROXINE (T4) 5.3 MCG/DL (4.8-13.9)
[2018-01-23 11:00] LABS: ALBUMIN 2.9 GM/DL (3.4-5.0); ALKALINE PHOSPHATASE 69 U/L (45-117); ALT (GPT) 13 U/L (10-53); AST (GOT) 15 U/L (15-37); BICARBONATE 26.4 MEQ/L (21.0-32.0); BLOOD UREA NITROGEN 8 MG/DL (7-18); CALCIUM 8.9 MG/DL (8.5-10.1); CHLORIDE 107 MEQ/L (98-107); CHOLESTEROL 150 MG/DL (120-200); CHOLESTEROL/ HDL RATIO 2.21 RATIO; CREATININE 0.92 MG/DL (0.50-1.00); GLOMERULAR FILTRATION RATE 73 ML/MIN (>89); GLUCOSE,RANDOM 140 MG/DL (74-106); HDL CHOLESTEROL 67.7 MG/DL (40.0-60.0); LDL CHOLESTEROL 70 MG/DL (0-99); SODIUM (NA) 141 MEQ/L (136-145); TOTAL BILIRUBIN ADULT 0.3 MG/DL (0.2-1.0); TRIGLYCERIDES 61 MG/DL (42-150)
[2018-01-23 11:14] LABS: FREE T3 1.64 PG/ML (2.18-3.98)
[2018-01-23 12:01] VITALS: BP 184/86
--- NOTE | 2018-01-23 12:04 | HHI.PR ---
Subjective Remarks Follow-up visit for hypertension, and normal TSH, hypokalemia. Patient seen and examined in the day room today in no acute distress. She reports that she did not get much sleep overnight and is feeling tired today. Denies any fevers , chills, nausea, vomiting, diarrhea. Spoke with nurse reports blood pressures remain elevated. Objective Vitals Vital Signs Date Time Temp Pulse Resp B/P (MAP) Pulse Ox O2 Delivery O2 Flow Rate FiO2 01/23/18 12:01 184/86 (118) 01/23/18 06:03 98.2 56 18 195/88 (123) 96 01/23/18 00:30 73 124/90 (101) 01/22/18 23:50 73 176/106 (129) 01/22/18 18:08 70 174/100 (124) 01/22/18 18:04 98.4 69 20 99 01/22/18 14:45 98.6 71 18 173/91 (118) 98 01/22/18 14:00 84 217/98 (137) 01/22/18 13:04 I/O 01/22/18 01/22/18 01/22/18 01/23/18 01/23/18 01/23/18 07:00 15:00 23:00 07:00 15:00 23:00 Intake Total 720 ml 360 ml 200 ml Balance 720 ml 360 ml 200 ml Intake Oral 720 ml 360 ml 200 ml # Voids 2 2 Result Diagram: 01/23/18 0936 01/23/18 0936 Imaging Last Impressions Head CT 01/21/18 0000 Signed Impressions: Service Date/Time: Sunday, January 21, 2018 13:32 - CONCLUSION: 1. Ventricles are again noted to be mildly dilated but unchanged. 2. Extensive nonspecific white matter changes. Demarcus Bah MD Objective Remarks GENERAL: Well-developed well-nourished -[place] female in no acute distress. SKIN: Warm and dry. HEAD: Normocephalic. NECK: Supple, trachea midline. No lymphadenopathy. EYES: No scleral icterus. No injection or drainage. CARDIOVASCULAR: Regular rate and rhythm without murmurs, gallops, or rubs. RESPIRATORY: Breath sounds equal bilaterally. No accessory muscle use. GASTROINTESTINAL: Abdomen soft, non-tender, nondistended. No guarding, normal active bowel sounds. MUSCULOSKELETAL: No cyanosis, or edema. Moving upper and lower extremity spontaneously. NEURO: Awake, alert, oriented 2. Cranial nerves grossly intact. Speech is clear, no facial droop noted. A/P Problem List: (1) NPH (normal pressure hydrocephalus) ICD Code: G91.2 - (Idiopathic) normal pressure hydrocephalus Status: Acute (2) Altered mental status ICD Code: R41.82 - Altered mental status Status: Acute (3) Hypertension ICD Code: I10 - Essential (primary) hypertension Status: Chronic (4) Unspecified psychosis ICD Code: F29 - Unspecified psychosis not due to a substance or known physiological condition (5) Schizophrenia ICD Code: F20.9 - Schizophrenia, unspecified Status: Acute Assessment and Plan 72-year-old female with past medical history significant for schizophrenia, depression, anxiety, OA, RA, HTN, HLD, GERD, headaches, and breast cancer who presents to emergency department for schizophrenia exacerbation. [facility] has been consulted to assist with medical management. Schizophrenia exacerbation -Treatment per psychiatry Hypertension, uncontrolled -Continue carvedilol 3.125 milligrams twice daily, will add hydralazine 25 mg every 8 hours -Clonidine 0.1 mg as needed for elevated BP -Continue monitoring blood pressure and heart rate and adjusting medications accordingly Hypokalemia -Patient's potassium on presentation was 3.1, replacements and administered, recheck this morning 4.0 Abnormal TSH -TSH checked 3 separate times all of which have been low - T4 is normal and free T3 is slightly low as well, suspect subclinical hyperthyroidism - Will need out patient follow up OA/RA-stable with no complaints HLD - Stable LDL 70 GERD - Continue on Protonix PO DVT prophylaxis-ambulation Discussed with nurse. Mohini Gutierrez Jan 23, 2018 12:04
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
[2018-01-23] MEDS: hydrALAZINE HCL 25 MG TAB PO SCH ×2 (14:00→20:28)
[2018-01-23 17:47] VITALS: BP 176/81; PULSE 55; RESP 18; TEMP 98.3; O2SAT 96
--- NOTE | 2018-01-23 19:58 | EKG ---
Date Performed: 01/23/2018 Time Performed: 10:48:50 PTAGE: 72 years EKG: SINUS BRADYCARDIA WITH OCCASIONAL SUPRAVENTRICULAR PREMATURE COMPLEXES PROLONGED QT INTERVA L Compared to previous tracing, anterior ischemic changes have improved and heart rate has slowed ABN ORMAL ECG PREVIOUS TRACING : 03/29/2017 19.00 DOCTOR: Alejandro Mcnally Interpretating Date/Time 01/23/2018 19:57:36
[2018-01-24] MEDS: hydrALAZINE HCL 25 MG TAB PO SCH (06:03)
[2018-01-24 06:45] VITALS: BP 177/84; PULSE 59; RESP 15; TEMP 97.7; O2SAT 97
[2018-01-24] MEDS: REMOVE OLD PATCH T-DERMAL SCH (09:00)
[2018-01-24] MEDS: NICOTINE 21 MG/24 HR PATCH T-DERMAL SCH (09:00)
[2018-01-24] MEDS: GABAPENTIN 400 MG CAP PO SCH ×3 (10:04→18:00)
[2018-01-24] MEDS: CARVEDILOL 3.125 MG TAB PO SCH ×2 (10:04→21:09)
[2018-01-24] MEDS: PANTOPRAZOLE SOD 40 MG DELAYED RELEASE TAB PO SCH (10:04)
[2018-01-24] MEDS: CHOLECALCIFEROL (VIT D3) 5000 UNIT CAP PO SCH (10:04)
[2018-01-24] MEDS: ACETAMINOPHEN 325 MG TAB PO PRN ×2 (10:10→21:20)
--- NOTE | 2018-01-24 10:36 | PD.TTN ---
Patient Problems 1. Discharge planning 2. Medication compliance 3. Knowledge deficit 4. Lack of coping skills Progress Toward Goals Provider Present: Dr. Jatinder Hussein Provider Input: 01/24/18 Will meet with new pt and discuss treatment planning Psychiatric Counselors Present: OPAL GalvanW Group Spec/RT/OT/SONI Present: NAE Campbell Andrew Harrison, OT Group Spec/RT/OT/SONI Input: 01/24/18 New pt. Will encourage attendance in groups Tonei Carlos/Estiven Jan 24, 2018 10:36
--- NOTE | 2018-01-24 13:30 | HHI.PYPN ---
Subjective Remarks Patient initially admitted by Dr. Demarcus Orozco, his H&P reviewed and agreed with. I have finished patient's initial psychiatric template admitting orders and review of med reconciliation. Patient seen today with nurse Mcdwoell. Patient discussed with nurse. Chart reviewed. Patient sitting quietly on her bed in her room. She is alert oriented [place] female appears stated age calm pleasant with me though she does acknowledge, albeit somewhat up to sleep, Shiva neighbors are which is some that there weren't some weight influencing her home and family members. Is denies suicidality homicidality. She is vague about auditory hallucinations and also vague about seeing people looking in her window. She is also vague about past psychiatric contact though she states she is a client with [facility] outpatient. At this time patient does continue to meet Hernandez criteria. The first second opinions have already been done. I agree with that. The left hospitalist consult with us. Both PT and OT consult will us. Attempted to reach patient's sister to get further information. We will schedule Geodon at 20 mg twice a day also Review of Systems Except as stated in HPI: all other systems reviewed are Neg Mental Status Examination Appearance: Appropriate (clean and well cared for) Consciousness: Alert Orientation: x4, Person, Place, Date/Time, Situation (partial to situation) Motor Activity: Other (reports uses a walker for ambulation) Speech: Unremarkable Language: Adequate Fund of Knowledge: Adequate Attention and Concentration: Adequate Memory: Unremarkable Mood: Appropriate Affect: Appropriate Thought Process & Associations: Goal directed Thought Content: Hallucinations, Delusional (that her neighbors call her names) Hallucination Type: None (does not appears internally stimulated) Delusion Type: Other (questionable paranoia towards family vs reality based family dysfunction) Suicidal Ideation: No Suicidal Plan: No Suicidal Intention: No Homicidal Ideation: No Homicidal Plan: No Homicidal Intention: No Insight: Poor Judgment: Poor Results Vitals/IOs Vital Signs Date Time Temp Pulse Resp B/P (MAP) Pulse Ox O2 Delivery O2 Flow Rate FiO2 01/24/18 06:45 97.7 59 15 177/84 (115) 97 01/22/18 04:00 Room Air Intake and Output 01/24/18 01/24/18 01/24/18 07:59 15:59 23:59 Intake Total 460 ml Balance 460 ml Assessment & Plan Problem List: (1) Brief psychotic disorder ICD Codes: F23 - Brief psychotic disorder Assessment & Plan Estimated LOS: days patient calm cooperative but psychotic at this time will offer Geodon 20 mg twice a day initially. Justification for Cont. Inpt. This time patient will decompensate the placed in a lower level of care Discharge Planning Hopefully to return home with sister Cameron Hussein MD Jan 24, 2018 13:30
[2018-01-24] MEDS ORDERED: amLODIPine BESYLATE 5 MG TAB PO SCH (14:15)
--- NOTE | 2018-01-24 14:51 | HHI.PR ---
Subjective Remarks Follow-up visit HTN, neuropathy. Patient seen and examined today laying in bed. Reports she has nerve pain and uses [facility]abap[facility] 400 mg [facility] Otherwise, denies SOB/ dyspnea. Denies chest pain, palpitations, headaches, dizziness. Denies fevers, chills, n/v/d. Denies dysuria. Objective Vitals Vital Signs Date Time Temp Pulse Resp B/P (MAP) Pulse Ox O2 Delivery O2 Flow Rate FiO2 01/24/18 06:45 97.7 59 15 177/84 (115) 97 01/23/18 17:47 98.3 55 18 176/81 (112) 96 I/O 01/23/18 01/23/18 01/23/18 01/24/18 01/24/18 01/24/18 07:00 15:00 23:00 07:00 15:00 23:00 Intake Total 360 ml 560 ml 1760 ml 340 ml 360 ml Output Total 3 ml Balance 360 ml 560 ml 1757 ml 340 ml 360 ml Intake Oral 360 ml 560 ml 1760 ml 340 ml 360 ml Output Urine Total 3 ml # Voids 2 # Bowel Movements 2 Result Diagram: 01/23/18 0936 01/23/18 0936 Imaging Last Impressions Head CT 01/21/18 0000 Signed Impressions: Service Date/Time: Sunday, January 21, 2018 13:32 - CONCLUSION: 1. Ventricles are again noted to be mildly dilated but unchanged. 2. Extensive nonspecific white matter changes. Demarcus Bah MD Objective Remarks GENERAL: This is a well-nourished, well-developed patient, in no apparent distress. SKIN: Warm and dry. HEENT: Normocephalic. Pupils equal round and reactive. Nose without bleeding. Airway patent. NECK: Trachea midline. CARDIOVASCULAR: Regular rate and rhythm without murmurs, gallops, or rubs. RESPIRATORY: Clear to auscultation. Breath sounds equal bilaterally. No wheezes , rales, or rhonchi. GASTROINTESTINAL: Abdomen soft, non-tender, nondistended. Bowel Sounds normoactive x4. MUSCULOSKELETAL: Extremities without clubbing, cyanosis, or edema. NEUROLOGICAL: Awake and alert. Oriented to time, place, person. No focal neuro deficit. Moves all extremities. Normal speech. A/P Problem List: (1) NPH (normal pressure hydrocephalus) ICD Code: G91.2 - (Idiopathic) normal pressure hydrocephalus Status: Acute (2) Altered mental status ICD Code: R41.82 - Altered mental status Status: Acute (3) Hypertension ICD Code: I10 - Essential (primary) hypertension Status: Chronic (4) Unspecified psychosis ICD Code: F29 - Unspecified psychosis not due to a substance or known physiological condition (5) Schizophrenia ICD Code: F20.9 - Schizophrenia, unspecified Status: Acute Assessment and Plan 72-year-old female with past medical history significant for schizophrenia, depression, anxiety, OA, RA, HTN, HLD, GERD, headaches, and breast cancer who presents to emergency department for schizophrenia exacerbation. [facility] has been consulted to assist with medical management. Schizophrenia exacerbation -Treatment per psychiatry Hypertension, uncontrolled HLD -Continue carvedilol 3.125 milligrams twice daily, increase hydralazine 50 mg every 8 hours, restart home meds including nifedipine - will titrate hydralazine if BP improves -Clonidine 0.1 mg as needed -Monitor BP trend Hypokalemia -Replace as needed -Improved Abnormal TSH -TSH checked 3 separate times all of which have been low -T4 is normal and free T3 is slightly low as well, suspect subclinical hyperthyroidism -Will need out patient follow up OA/RA-stable with no complaints GERD -Continue on Protonix PO Neuropathy, peripheral -Gabapentin 400 mg 3 times daily DVT prophylaxis-ambulation Jessica Hairston Jan 24, 2018 14:51
[2018-01-24] MEDS: ZIPRASIDONE HCL 20 MG CAP PO SCH (18:00)
[2018-01-24 18:07] VITALS: BP 171/81; PULSE 79; RESP 16; TEMP 98.7; O2SAT 98
[2018-01-24] MEDS: hydrALAZINE HCL 50 MG TAB PO SCH (21:09)
[2018-01-25] MEDS: hydrALAZINE HCL 50 MG TAB PO SCH ×3 (05:45→22:28)
[2018-01-25] MEDS: ACETAMINOPHEN 325 MG TAB PO PRN ×2 (05:56→20:29)
[2018-01-25 06:00] VITALS: BP 178/81; PULSE 72; RESP 17; TEMP 97.7; O2SAT 98
[2018-01-25] MEDS: LISINOPRIL 10 MG TAB PO SCH (08:52)
[2018-01-25] MEDS: PANTOPRAZOLE SOD 40 MG DELAYED RELEASE TAB PO SCH (08:52)
[2018-01-25] MEDS: CARVEDILOL 3.125 MG TAB PO SCH ×2 (08:52→20:27)
[2018-01-25] MEDS: ZIPRASIDONE HCL 20 MG CAP PO SCH ×2 (08:52→17:32)
[2018-01-25] MEDS: GABAPENTIN 400 MG CAP PO SCH ×3 (08:52→17:32)
[2018-01-25] MEDS: CHOLECALCIFEROL (VIT D3) 5000 UNIT CAP PO SCH (08:54)
[2018-01-25] MEDS: NICOTINE 21 MG/24 HR PATCH T-DERMAL SCH (08:54)
[2018-01-25] MEDS: NIFEdipine 60 MG SUSTAINED RELEASE TAB PO SCH (08:54)
[2018-01-25] MEDS: REMOVE OLD PATCH T-DERMAL SCH (09:00)
--- NOTE | 2018-01-25 11:03 | HHI.PYPN ---
Subjective Remarks Patient seen in her room with nurse Raji and counselor Nata, chart review, patient compliant medications, patient discussed with nurse. Patient states that her neighbors have now moved. The intensity of her delusional related to him being which is or things and that daughter has diminished. She denies any voices or visions at the present time. For now continue treatment Review of Systems Except as stated in HPI: all other systems reviewed are Neg Mental Status Examination Appearance: Appropriate (clean and well cared for) Consciousness: Alert Orientation: x4, Person, Place, Date/Time, Situation (partial to situation) Motor Activity: Other (reports uses a walker for ambulation) Speech: Unremarkable Language: Adequate Fund of Knowledge: Adequate Attention and Concentration: Adequate Memory: Unremarkable Mood: Appropriate Affect: Appropriate Thought Process & Associations: Goal directed Thought Content: Hallucinations, Delusional (that her neighbors call her names) Hallucination Type: None (does not appears internally stimulated) Delusion Type: Other (questionable paranoia towards family vs reality based family dysfunction) Suicidal Ideation: No Suicidal Plan: No Suicidal Intention: No Homicidal Ideation: No Homicidal Plan: No Homicidal Intention: No Insight: Poor Judgment: Poor Results Vitals/IOs Vital Signs Date Time Temp Pulse Resp B/P (MAP) Pulse Ox O2 Delivery O2 Flow Rate FiO2 01/25/18 06:00 97.7 72 17 178/81 (113) 98 01/22/18 04:00 Room Air Intake and Output 01/25/18 01/25/18 01/26/18 08:00 16:00 00:00 Intake Total 240 ml Balance 240 ml Assessment & Plan Problem List: (1) Brief psychotic disorder ICD Codes: F23 - Brief psychotic disorder Assessment & Plan Estimated LOS: days patient remained psychotic and delusional though somewhat softer, compliant medications. For now continue treatment Justification for Cont. Inpt. At this time patient decompensated placed in a lower level of care Discharge Planning To be determined perhaps on with family Cameron Hussein MD Jan 25, 2018 11:03
[2018-01-25 13:32] VITALS: BP 140/72; PULSE 86; RESP 16; TEMP 98.3; O2SAT 98
--- NOTE | 2018-01-25 14:57 | HHI.PR ---
Subjective Remarks Follow-up visit HTN, neuropathy. Patient seen and examined today laying in bed. Patient states she is doing a lot better. States it is pain is better. Denies pain and discomfort. Denies SOB/ dyspnea. Denies chest pain, palpitations, headaches, dizziness. Denies fevers, chills, n/v/d. Objective Vitals Vital Signs Date Time Temp Pulse Resp B/P (MAP) Pulse Ox O2 Delivery O2 Flow Rate FiO2 01/25/18 13:32 98.3 86 16 140/72 (94) 98 01/25/18 06:00 97.7 72 17 178/81 (113) 98 01/24/18 22:46 20 01/24/18 18:07 98.7 79 16 171/81 (111) 98 I/O 01/24/18 01/24/18 01/24/18 01/25/18 01/25/18 01/25/18 07:00 15:00 23:00 07:00 15:00 23:00 Intake Total 340 ml 840 ml 720 ml 240 ml 240 ml Balance 340 ml 840 ml 720 ml 240 ml 240 ml Intake Oral 340 ml 840 ml 720 ml 240 ml 240 ml # Voids 5 1 3 # Bowel Movements 1 Result Diagram: 01/23/18 0936 01/23/18 0936 Imaging Last Impressions Head CT 01/21/18 0000 Signed Impressions: Service Date/Time: Sunday, January 21, 2018 13:32 - CONCLUSION: 1. Ventricles are again noted to be mildly dilated but unchanged. 2. Extensive nonspecific white matter changes. Demarcus Bah MD Objective Remarks GENERAL: This is a well-nourished, well-developed patient, in no apparent distress. SKIN: Warm and dry. HEENT: Normocephalic. Pupils equal round and reactive. Nose without bleeding. Airway patent. NECK: Trachea midline. CARDIOVASCULAR: Regular rate and rhythm without murmurs, gallops, or rubs. RESPIRATORY: Clear to auscultation. Breath sounds equal bilaterally. No wheezes , rales, or rhonchi. GASTROINTESTINAL: Abdomen soft, non-tender, nondistended. Bowel Sounds normoactive x4. MUSCULOSKELETAL: Extremities without clubbing, cyanosis, or edema. NEUROLOGICAL: Awake and alert. Oriented to time, place, person. No focal neuro deficit. Moves all extremities. Normal speech. A/P Problem List: (1) NPH (normal pressure hydrocephalus) ICD Code: G91.2 - (Idiopathic) normal pressure hydrocephalus Status: Acute (2) Altered mental status ICD Code: R41.82 - Altered mental status Status: Acute (3) Hypertension ICD Code: I10 - Essential (primary) hypertension Status: Chronic (4) Unspecified psychosis ICD Code: F29 - Unspecified psychosis not due to a substance or known physiological condition (5) Schizophrenia ICD Code: F20.9 - Schizophrenia, unspecified Status: Acute Assessment and Plan 72-year-old female with past medical history significant for schizophrenia, depression, anxiety, OA, RA, HTN, HLD, GERD, headaches, and breast cancer who presents to emergency department for schizophrenia exacerbation. [facility] has been consulted to assist with medical management. Schizophrenia exacerbation -Treatment per psychiatry Hypertension, uncontrolled HLD -Continue carvedilol 3.125 milligrams twice daily, increase hydralazine 50 mg every 8 hours, restart home meds including nifedipine - will titrate hydralazine if BP improves -Clonidine 0.1 mg as needed -Monitor BP trend. Improving Hypokalemia -Replace as needed -Improved Abnormal TSH -TSH checked 3 separate times all of which have been low -T4 is normal and free T3 is slightly low as well, suspect subclinical hyperthyroidism -Will need out patient follow up OA/RA-stable with no complaints GERD -Continue on Protonix PO Neuropathy, peripheral -Gabapentin 400 mg 3 times daily DVT prophylaxis-ambulation Stable from Hospitalist standpoint. We will sign off if BP improves. Reconsult as needed. Jessica Hairston Jan 25, 2018 14:57
[2018-01-25 18:00] VITALS: BP 113/74; PULSE 78; RESP 18; TEMP 98.4; O2SAT 98
[2018-01-25 20:23] VITALS: BP 115/60
[2018-01-25 22:31] VITALS: BP 124/66; PULSE 74
[2018-01-26] MEDS: ACETAMINOPHEN 325 MG TAB PO PRN ×2 (01:29→17:16)
[2018-01-26 05:53] VITALS: BP 123/71; PULSE 72; RESP 17; TEMP 98.1; O2SAT 98
[2018-01-26] MEDS: hydrALAZINE HCL 50 MG TAB PO SCH ×3 (06:17→22:20)
[2018-01-26] MEDS: GABAPENTIN 400 MG CAP PO SCH ×3 (08:57→17:07)
[2018-01-26] MEDS: NIFEdipine 60 MG SUSTAINED RELEASE TAB PO SCH (08:57)
[2018-01-26] MEDS: CARVEDILOL 3.125 MG TAB PO SCH ×2 (08:57→20:30)
[2018-01-26] MEDS: ZIPRASIDONE HCL 20 MG CAP PO SCH ×2 (08:57→17:07)
[2018-01-26] MEDS: LISINOPRIL 10 MG TAB PO SCH (08:57)
[2018-01-26] MEDS: PANTOPRAZOLE SOD 40 MG DELAYED RELEASE TAB PO SCH (08:57)
[2018-01-26] MEDS: CHOLECALCIFEROL (VIT D3) 5000 UNIT CAP PO SCH (08:57)
[2018-01-26] MEDS: REMOVE OLD PATCH T-DERMAL SCH (08:58)
[2018-01-26] MEDS: NICOTINE 21 MG/24 HR PATCH T-DERMAL SCH (08:58)
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
[2018-01-26 18:00] VITALS: BP 107/52; PULSE 80; RESP 16; TEMP 98.1
[2018-01-26 18:17] LABS: HEMOGLOBIN A1C 6.4 % (4.3-6.0)
[2018-01-27 05:51] VITALS: BP 119/58; PULSE 70; RESP 16; TEMP 97.8; O2SAT 100
[2018-01-27] MEDS: hydrALAZINE HCL 50 MG TAB PO SCH ×2 (05:53→14:00)
[2018-01-27] MEDS: NICOTINE 21 MG/24 HR PATCH T-DERMAL SCH (09:00)
[2018-01-27] MEDS: LISINOPRIL 10 MG TAB PO SCH (09:00)
[2018-01-27] MEDS: REMOVE OLD PATCH T-DERMAL SCH (09:00)
[2018-01-27] MEDS: CARVEDILOL 3.125 MG TAB PO SCH (09:00)
[2018-01-27] MEDS: ZIPRASIDONE HCL 20 MG CAP PO SCH ×2 (09:02→17:16)
[2018-01-27] MEDS: GABAPENTIN 400 MG CAP PO SCH ×3 (09:02→17:16)
[2018-01-27] MEDS: NIFEdipine 60 MG SUSTAINED RELEASE TAB PO SCH (09:02)
[2018-01-27] MEDS: PANTOPRAZOLE SOD 40 MG DELAYED RELEASE TAB PO SCH (09:02)
[2018-01-27] MEDS: CHOLECALCIFEROL (VIT D3) 5000 UNIT CAP PO SCH (09:02)
[2018-01-27] MEDS: ACETAMINOPHEN 325 MG TAB PO PRN (09:52)
[2018-01-27] MEDS ORDERED: ZIPR1CAP12 (14:59)
[2018-01-27] MEDS ORDERED: NEUR400C (14:59)
[2018-01-27] MEDS ORDERED: NIFE60TA8 PO (14:59)
[2018-01-27] MEDS ORDERED: LISI10TA3 PO (14:59)
[2018-01-27] MEDS ORDERED: CARV3.12 PO (14:59)
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
[2018-01-27 16:29] VITALS: BP 134/82; PULSE 88; RESP 17; TEMP 98.1; O2SAT 99
== END 2018-01-27 20:00 | disposition home or self-care (01) | DRG 885 ==
LOC: NEPD 12:11 → NEDA 01-22 12:42 → H250 01-22 13:12 → H260 01-25 10:40
PROVIDERS: ADMIT Psychiatry & Neurology Psychiatry; ATTEND Psychiatry & Neurology Psychiatry
DX: F23 Brief psychotic disorder (principal); G91.2 (Idiopathic) normal pressure hydrocephalus; G62.9 Polyneuropathy, unspecified; I10 Essential (primary) hypertension; F25.9 Schizoaffective disorder, unspecified; E78.5 Hyperlipidemia, unspecified; E87.6 Hypokalemia; F17.210 Nicotine dependence, cigarettes, uncomplicated; K21.9 Gastro-esophageal reflux disease without esophagitis; Z85.3 Personal history of malignant neoplasm of breast; M19.90 Unspecified osteoarthritis, unspecified site; M06.9 Rheumatoid arthritis, unspecified; F32.9 Major depressive disorder, single episode, unspecified; F41.9 Anxiety disorder, unspecified; F29 Unspecified psychosis not due to a substance or known physiological condition; R41.82 Altered mental status, unspecified; E78.00 Pure hypercholesterolemia, unspecified; R94.6 Abnormal results of thyroid function studies; Z79.899 Other long term (current) drug therapy
CPT/HCPCS: 70450; 80053; 80061; 80307; 81001; 83036; 84436; 84443; 84481; 85025; 93005

== ENCOUNTER 2018-08-24 21:31 | Observation (INO) ==
--- NOTE | 2018-08-24 21:45 | ED ---
HPI General Chief complaint: Altered Mental Status Stated complaint: Confused Time Seen by Provider: 08/24/18 21:36 Source: EMS, RN notes reviewed and old records reviewed Mode of arrival: EMS Limitations: altered mental status History of Present Illness HPI narrative: 73yF brought in by EMS for altered mental status. EMS states that the patient has a history of schizoaffective disorder and her family reported that she had stopped taking her medications 1 week ago. She had an unwitnessed fall yesterday and apparently became combative and agitated today. The patient required restraints and sedation while en route by EMS. She is unable to provide meaningful contribution to HPI due to altered mental status. Related Data Home Medications Medication Instructions Recorded Confirmed Unable to Obtain Home Meds 08/24/18 08/24/18 Allergies Allergy/AdvReac Type Severity Reaction Status Date / Time No Known Allergies Allergy Unknown Uncoded 01/21/18 21:45 Review of Systems ROS Unobtainable ROS Unobtainable: unobtainable due to mental status PMFSH History History Provided By: Medical Record and System Safety Manager / EMT Medical History Medical History Bipolar disorder (Acute) Schizophrenia (Acute) Surgical history unknown (Acute) Social History Social History Substance History: Unable to Obtain Smoking Status: Unknown if ever smoked How Often Do You Have a Drink Containing Alcohol: Unable to Obtain Recent Travel in [facility] within the Last 8 Weeks: No Recent Out of Country Travel within the Last 8 Weeks: No Exam Const General: frail appearing Limitations: altered mental status [facility] Head: normocephalic and atraumatic Eyes Pupils: PERRL Chest Chest: normal inspection of the chest Resp Auscultation: clear to auscultation bilaterally Cardio Rate: tachycardic Rhythm: regular rhythm GI Palpation: soft and nontender Skin General: no rashes or lesions noted Neuro Other: Combative and agitated, non-sensical rambling incoherent speech, moving all extremities, does not answer any questions Extrem General: normal to inspection Course Initial Documented Vital Signs Temperature 98.9 F 08/24/18 21:35 Pulse Rate 117 H 08/24/18 21:35 Respiratory Rate 18 08/24/18 21:35 Blood Pressure 148/106 H 08/24/18 21:35 Pulse Oximetry 100 08/24/18 21:35 Last Documented Vital Signs Temperature 98.9 F 08/24/18 21:35 Pulse Rate 98 H 08/24/18 22:30 Respiratory Rate 18 08/24/18 21:35 Blood Pressure 148/106 H 08/24/18 21:35 Pulse Oximetry 100 08/24/18 21:35 Medical Decision Making MDM Narrative Medical decision making narrative: Assessment: 73yF presenting with altered mental status Plan: I performed a face to face evaluation of the patient and determined that she requires restraints to prevent disruption with medical devices and exam. I have also ordered IM zyprexa as well. EKG and monitor Labs UA CTH, CXR Addendum: Patient's work up reveals mildly elevated ammonia, CK 800+, and acute kidney injury. Her CTH was read as possible NPH, CXR negative. Her UA is pending. Case discussed with Dr. Mota of [facility]; this patient cannot go home as she has YOHANA/ rhabdo and altered mental status. She will need IV fluids, further workup, and re-evaluation at frequent intervals. Medical Screen Exam Complete: Yes Emergency Medical Condition: Yes Medical Records Medical records reviewed: Yes I reviewed the patient's medical records. Lab Data Lab results reviewed: Yes I reviewed the patient's lab results. Result diagrams: 08/24/18 21:40 08/24/18 21:40 Lab Results 08/24/18 08/24/18 08/24/18 Range/Units 21:40 21:40 21:40 WBC 5.5 (4.0-11.0) th/mm3 RBC 4.27 (4.00-5.30) mil/mm3 Hgb 13.0 (11.6-15.3) gm/dL Hct 40.8 (35.0-46.0) % MCV 95.4 (80.0-100.0) fL MCH 30.4 (27.0-34.0) pg MCHC 31.9 L (32.0-36.0) % RDW 15.7 (11.6-17.2) % Plt Count 228 (150-450) th/mm3 MPV 7.3 (7.0-11.0) fL Neut % (Auto) 49.1 (16.0-70.0) % Lymph % (Auto) 40.0 (9.0-44.0) % [place] % (Auto) 9.9 H (0.0-8.0) % Eos % (Auto) 0.5 (0.0-4.0) % Baso % (Auto) 0.5 (0.0-2.0) % Neut # (Auto) 2.7 (1.8-7.7) th/mm3 Lymph # (Auto) 2.2 (1.0-4.8) th/mm3 [place] # (Auto) 0.5 (0.0-0.9) th/mm3 Eos # (Auto) 0.0 (0.0-0.4) th/mm3 Baso # (Auto) 0.0 (0.0-0.2) th/mm3 WBC Differential . Differential Comment Auto diff final Sodium 134 L (136-145) meq/L Potassium 4.4 (3.5-5.1) meq/L Chloride 102 (98-107) meq/L Carbon Dioxide 17.7 L (21.0-32.0) meq/L Anion Gap 14 (5-15) meq/L BUN 19 H (7-18) mg/dL Creatinine 1.75 H (0.50-1.00) mg/dL Estimated GFR 35 L (>89) mL/min Random Glucose 99 (74-106) mg/dL Calcium 9.1 (8.5-10.1) mg/dL Magnesium 1.8 (1.5-2.5) mg/dL Total Bilirubin 0.4 (0.2-1.0) mg/dL AST 52 H (15-37) U/L ALT 26 (10-53) U/L Alkaline Phosphatase 89 (45-117) U/L Ammonia 47 H (11-32) mcmol/L Total Creatine Kinase (26-192) U/L CK-MB (CK-2) (0.5-3.6) ng/mL CK-MB (CK-2) % (0.0-4.0) % Total Protein 9.6 H (6.4-8.2) g/dL Albumin 4.1 (3.4-5.0) g/dL TSH 0.687 (0.358-3.740) uIU/mL Serum Alcohol Less than 3 (0-5) mg/dL 08/24/18 Range/Units 21:40 WBC (4.0-11.0) th/mm3 RBC (4.00-5.30) mil/mm3 Hgb (11.6-15.3) gm/dL Hct (35.0-46.0) % MCV (80.0-100.0) fL MCH (27.0-34.0) pg MCHC (32.0-36.0) % RDW (11.6-17.2) % Plt Count (150-450) th/mm3 MPV (7.0-11.0) fL Neut % (Auto) (16.0-70.0) % Lymph % (Auto) (9.0-44.0) % [place] % (Auto) (0.0-8.0) % Eos % (Auto) (0.0-4.0) % Baso % (Auto) (0.0-2.0) % Neut # (Auto) (1.8-7.7) th/mm3 Lymph # (Auto) (1.0-4.8) th/mm3 [place] # (Auto) (0.0-0.9) th/mm3 Eos # (Auto) (0.0-0.4) th/mm3 Baso # (Auto) (0.0-0.2) th/mm3 WBC Differential Differential Comment Sodium (136-145) meq/L Potassium (3.5-5.1) meq/L Chloride (98-107) meq/L Carbon Dioxide (21.0-32.0) meq/L Anion Gap (5-15) meq/L BUN (7-18) mg/dL Creatinine (0.50-1.00) mg/dL Estimated GFR (>89) mL/min Random Glucose (74-106) mg/dL Calcium (8.5-10.1) mg/dL Magnesium (1.5-2.5) mg/dL Total Bilirubin (0.2-1.0) mg/dL AST (15-37) U/L ALT (10-53) U/L Alkaline Phosphatase (45-117) U/L Ammonia (11-32) mcmol/L Total Creatine Kinase 872 H (26-192) U/L CK-MB (CK-2) 8.2 H (0.5-3.6) ng/mL CK-MB (CK-2) % 0.9 (0.0-4.0) % Total Protein (6.4-8.2) g/dL Albumin (3.4-5.0) g/dL TSH (0.358-3.740) uIU/mL Serum Alcohol (0-5) mg/dL Imaging Data Radiologist's impression: Chest X-Ray 08/24/18 21:38 CONCLUSION: 1. Suggestion of a left mastectomy with axillary chayito dissection. 2. No acute cardiopulmonary process. Head CT 08/24/18 21:38 CONCLUSION: 1. Stable chronic changes with ventricular prominence out of proportion to the degree of cortical atrophy. In the appropriate clinical setting, findings could represent normal pressure hydrocephalus. 2. Severe but stable periventricular small vessel ischemic demyelination. 3. Nothing acute. . ECG Data Attestation: I personally reviewed and interpreted this ECG as follows: Interpretation: Rate: 120 BPM Rhythm: Sinus [place]: Normal Intervals: Normal intervals, no blocks, QTc 400 ms Q waves: None T waves: Upright, no inversions ST segments: No elevations or depressions Impression: Non-specific EKG, sinus tachycardia, prolonged QT interval on EKG from 01/23/18 is no longer present. Discharge Plan Physicians Team ED Provider: Ysabel Diaz Primary Care Provider: UNKNOWN, Rxs /Orders / Referrals /Forms Prescriptions: No Action Unable to Obtain Home Meds RF: 0 Status ED Status: With Doctor
--- NOTE | 2018-08-24 22:01 | XR ---
EXAM DATE: 08/24/2018 9:38 PM EDT AGE/SEX: 73 years / Female INDICATIONS: Shortness of breath and altered mental status. CLINICAL DATA: This is the patient's initial encounter. Patient reports that signs and symptoms have been present for 1 day and indicates a pain score of Nonresponsive. MEDICAL/SURGICAL HISTORY: Non-responsive. Non-responsive. [place] [facility] [place]. . FINDINGS: A single AP view of the chest demonstrates the lungs to be symmetrically aerated without evidence of mass, infiltrate or effusion. The cardiomediastinal contours are unremarkable. Osseous structures a re intact with a stable dextroscoliosis of the thoracolumbar spine. Surgical clips over the left axil la suggest prior chayito dissection. Possible left mastectomy with absence of the left breast shadow. D egenerative changes in both shoulders. CONCLUSION: 1. Suggestion of a left mastectomy with axillary chayito dissection. 2. No acute cardiopulmonary process. Electronically signed by: Van Daniel MD 08/24/2018 10:00 PM EDT
[2018-08-24 22:09] LABS: Baso % (Auto) 0.5 % (0.0-2.0); Eos % (Auto) 0.5 % (0.0-4.0); Hematocrit 40.8 % (35.0-46.0); Lymph # (Auto) 2.2 th/mm3 (1.0-4.8); Mean Corpuscular HGB Conc 31.9 % (32.0-36.0); Mean Corpuscular Hemoglobin 30.4 pg (27.0-34.0); Mean Corpuscular Volume 95.4 fL (80.0-100.0); Mean Platelet Volume 7.3 fL (7.0-11.0); Mono # (Auto) 0.5 th/mm3 (0.0-0.9); Mono % (Auto) 9.9 % (0.0-8.0); Neut # (Auto) 2.7 th/mm3 (1.8-7.7); Neut % (Auto) 49.1 % (16.0-70.0); Platelet Count 228 th/mm3 (150-450); Red Blood Count 4.27 mil/mm3 (4.00-5.30); Red Cell Distribution Width 15.7 % (11.6-17.2); White Blood Count 5.5 th/mm3 (4.0-11.0)
[2018-08-24 22:26] LABS: Albumin 4.1 g/dL (3.4-5.0); Anion Gap 14 meq/L (5-15); Aspartate Aminotransferase 52 U/L (15-37); Blood Urea Nitrogen 19 mg/dL (7-18); Calcium 9.1 mg/dL (8.5-10.1); Carbon Dioxide 17.7 meq/L (21.0-32.0); Chloride 102 meq/L (98-107); Glomerular Filtration Rate 35 mL/min (>89); Glucose,Random 99 mg/dL (74-106); Magnesium 1.8 mg/dL (1.5-2.5); Potassium 4.4 meq/L (3.5-5.1); Sodium 134 meq/L (136-145)
[2018-08-24 22:35] LABS: Alanine Aminotransferase 26 U/L (10-53); Alkaline Phosphatase 89 U/L (45-117); Thyroid Stimulating Hormone 0.687 uIU/mL (0.358-3.740); Total Protein 9.6 g/dL (6.4-8.2)
[2018-08-24] MEDS ORDERED: Sod Chloride 0.9% Inj 1,000 ML IV.SIG ONE (22:35)
[2018-08-24 22:41] LABS: CKMB Percent 0.9 % (0.0-4.0); Creatine Kinase MB 8.2 ng/mL (0.5-3.6)
--- NOTE | 2018-08-24 22:48 | CT ---
EXAM DATE: 08/24/2018 9:41 PM EDT AGE/SEX: 73 years / Female INDICATIONS: Fall. Altered mental status. CLINICAL DATA: This is the patient's initial encounter. Patient reports that signs and symptoms have been present for 1 day and indicates a pain score of Nonresponsive. MEDICAL/SURGICAL HISTORY: . Unobtainable. . Unobtainable. RADIATION DOSE: 56.35 CTDI (mGy) COMPARISON: [facility] [place] BRAIN W/O CONTRAST, 01/21/2018. . TECHNIQUE: CT of the head without contrast. Using automated exposure control and adjustment of the mA and/or kV according to patient size, radiation dose was kept as low as reasonably achievable to ob tain optimal diagnostic quality images. DICOM format image data is available electronically for revi ew and comparison. FINDINGS: Cerebrum: Stable prominence of the ventricles, out of proportion to the degree of cortical atrophy. Periventricular and deep white matter tract areas of diminished attenuation characteristic of severe small vessel ischemic demyelination.. No evidence of midline shift, mass lesion, hemorrhage or acute infarction. No extraaxial fluid collections are seen. Posterior Fossa: The cerebellum and brainstem are intact. The 4th ventricle is midline. The cerebe llopontine angle is unremarkable. Extracranial: The visualized portion of the orbits is intact. Skull: The calvaria is intact. No evidence of skull fracture. CONCLUSION: 1. Stable chronic changes with ventricular prominence out of proportion to the degree of cortical at rophy. In the appropriate clinical setting, findings could represent normal pressure hydrocephalus. 2. Severe but stable periventricular small vessel ischemic demyelination. 3. Nothing acute. . Electronically signed by: Van Daniel MD 08/24/2018 10:46 PM EDT
[2018-08-24 23:02] LABS: Amphetamine Screen,Urine Neg (Neg); Barbiturate Screen,Urine Neg (Neg); Cannabinoid Screen,Urine Neg (Neg); Cocaine Screen,Urine Neg (Neg)
[2018-08-24 23:08] LABS: Bilirubin,Urine Negative (Negative); Clarity,Urine Clear (Clear); Color,Urine Yellow (Yellw/Straw); Glucose,Urine (UA) Negative (Negative); Hyaline Casts,Urine 5 /lpf (0-3); Leukocyte Esterase,Urine Negative (Negative); Mucus,Urine Few /lpf (Occasional); Nitrite,Urine Negative (Negative); Specific Gravity,Urine 1.027 (1.002-1.035); Squamous Epithelial Cell,Urine 1 /hpf (0-5)
[2018-08-24] MEDS ORDERED: Acetaminophen 325 MG Tablet PO PRN (23:08)
[2018-08-24] MEDS ORDERED: Bisacodyl 10 MG Supp RECTAL PRN (23:08)
--- NOTE | 2018-08-24 23:10 | P.HPIM ---
History of Present Illness Primary Care Physician: UNKNOWN History of Present Illness: This is a 73-year-old female with a PMH of Schizoaffective Disorder who was brought to the ER by EMS secondary to AMS w/ aggressive/combative behavior requiring sedation and restraints. Pt unable to provide any history at this time due to medication. Per report, pt's Daughter believes pt has been off of her medications for the last 1wk and had fall yesterday, unknown if LOC or head trauma. Previous Psych admit 01/27/18 for Brief Psychotic Episode w/ increase in her medications. On arrival, pt combative, requiring Zyprexa w/ improvement. BP 148/106, HR 117, O2 sat 100% on RA, Afebrile. CBC essentially unremarkable. Creatinine 1.75, previously 0.92 on 01/23/2018. CPK 872. UA negative for UTI. Urine Drug Screen negative. Alcohol negative. CXR with left mastectomy and axillary chayito dissection, no acute process. He Head stable chronic changes, possibly normal pressure hydrocephalus, no acute findings. - Diagnosis (1) Schizoaffective disorder (2) Encephalopathy (3) YOHANA (acute kidney injury) (4) Rhabdomyolysis Review of Systems PAST FAMILY HISTORY: Unknown. unobtainable due to mental status PMF - History History Provided By: Medical Record, Sr. Payroll Processor / EMT - Medical History Medical History: Medical History (Last Reviewed 08/24/18 @ 21:47 by Ysabel Diaz DO) Bipolar disorder Schizophrenia Surgical history unknown - Tobacco History Smoking Status: Unknown if ever smoked - Alcohol History How Often Do You Have a Drink Containing Alcohol: Unable to Obtain - Substance Use History Substance History: Unable to Obtain - Travel History Recent Travel in the [place] Within the Last 8 Weeks: No Recent Travel Out of the Country Within the Last 8 Weeks: No - Immunization History Tetanus Immunization: Unable to Assess Medications and Allergies Active Medications: Active Medications Acetaminophen (Tylenol) 650 mg PO Q4H PRN PRN Reason: Temp > 100.4 Al Hydroxide/Mg Hydroxide (Milk Of Magnesia Liq) 30 ml PO Q12H PRN PRN Reason: Mild Constipation Bisacodyl (Dulcolax Supp) 10 mg RECTAL DAILY PRN PRN Reason: SEVERE CONSITIPATION Sodium Chloride (Ns Inj) 1,000 mls @ 100 mls/hr IV.CONT .Q10H ELANA Lactulose (Lactulose Liq) 30 ml PO DAILY PRN PRN Reason: SEVERE CONSITIPATION Ondansetron HCl (Zofran Inj) 4 mg IV.PUSH Q6H PRN PRN Reason: NAUSEA OR VOMITING Sodium Chloride (Ns Flush) 2 ml IV.FLUSH PRN PRN PRN Reason: FLUSH AFTER USING IV ACCESS Allergies Allergy/AdvReac Type Severity Reaction Status Date / Time No Known Allergies Allergy Unknown Uncoded 01/21/18 21:45 Home Medications Medication Instructions Recorded Confirmed Type Unable to Obtain Home Meds 08/24/18 08/24/18 History Exam Vital signs: Vital Signs 08/24/18 21:35 08/24/18 22:30 Temperature 98.9 F Pulse Rate 117 H 98 H Respiratory Rate 18 Blood Pressure 148/106 H Pulse Oximetry 100 Intake & Output 08/24/18 08/24/18 08/25/18 06:59 18:59 06:59 Weight 61.235 kg Narrative: PE: GENERAL: Elderly black female, in no acute distress, lethargic from medication but opens eyes to voice SKIN: Focused skin assessment warm and dry. HEENT: PERRLA, EOMI. No scleral icterus or conjunctival pallor. No lid lag or facial droop. CARDIOVASCULAR: Regular rate and rhythm. No obvious murmurs to auscultation. No chest tenderness to palpation. RESPIRATORY: No obvious rhonchi or wheezing. Clear to auscultation. Breath sounds equal bilaterally. GASTROINTESTINAL: Abdomen soft, non-tender, nondistended. BS normal. MUSCULOSKELETAL: Extremities without clubbing, cyanosis, or edema. No obvious deformities. NEUROLOGICAL: Lethargic after medication. No focal neurologic deficits. Moving both upper and lower extremities spontaneously. PSYCHIATRIC: Appropriate mood and affect. Insight and judgment normal. Results - Labs CBC & Chem 7: 08/24/18 21:40 08/24/18 21:40 Labs: Short CBC 08/24/18 Range/Units 21:40 WBC 5.5 (4.0-11.0) th/mm3 Hgb 13.0 (11.6-15.3) gm/dL Hct 40.8 (35.0-46.0) % Plt Count 228 (150-450) th/mm3 BMP 08/24/18 21:40 Sodium 134 L Potassium 4.4 Chloride 102 Carbon Dioxide 17.7 L BUN 19 H Creatinine 1.75 H Calcium 9.1 Cardiac Enzymes 08/24/18 Range/Units 21:40 Total Creatine Kinase 872 H (26-192) U/L CK-MB (CK-2) 8.2 H (0.5-3.6) ng/mL Liver Function 08/24/18 Range/Units 21:40 Total Bilirubin 0.4 (0.2-1.0) mg/dL AST 52 H (15-37) U/L ALT 26 (10-53) U/L Alkaline Phosphatase 89 (45-117) U/L Albumin 4.1 (3.4-5.0) g/dL Urine 08/24/18 Range/Units 22:05 Urine Color Yellow (Yellw/Straw) Urine Clarity Clear (Clear) Urine pH 5.0 (5.0-8.5) Ur Specific [place] 1.027 (1.002-1.035) Urine Protein 100 H (Neg-Trace) mg/dL Urine Glucose (UA) Negative (Negative) mg/dL - Imaging Impressions Chest X-Ray 08/24/18 21:38 CONCLUSION: 1. Suggestion of a left mastectomy with axillary chayito dissection. 2. No acute cardiopulmonary process. Head CT 08/24/18 21:38 CONCLUSION: 1. Stable chronic changes with ventricular prominence out of proportion to the degree of cortical atrophy. In the appropriate clinical setting, findings could represent normal pressure hydrocephalus. 2. Severe but stable periventricular small vessel ischemic demyelination. 3. Nothing acute. . Caprini VTE Risk Assessment Caprini VTE Risk Assessment: No/Low Risk (score <= 1) Caprini Risk Assessment Model: Point Value = 1 Point Value = 2 Point Value = 3 Point Value = 5 Age 41-60 Minor surgery BMI > 25 kg/m2 Swollen legs Varicose veins or History of unexplained or recurrent spontaneous Oral contraceptives or hormone replacement Sepsis (< 1 month) Serious lung disease, including pneumonia (< 1 month) Abnormal pulmonary function Acute myocardial infarction Congestive heart failure (< 1 month) History of inflammatory bowel disease Medical patient at bed rest Age 61-74 Arthroscopic surgery Major open surgery (> 45 min) Laparoscopic surgery (> 45 min) Malignancy Confined to bed (> 72 hours) Immobilizing plaster cast Central venous access Age >= 75 History of VTE Family history of VTE Factor V Leiden Prothrombin [id number] Lupus anticoagulant Anticardiolipin antibodies Elevated serum homocysteine Heparin-induced thrombocytopenia Other congenital or acquired thrombophilia Stroke (< 1 month) Elective arthroplasty Hip, pelvis, or leg fracture Acute spinal cord injury (< 1 month) Prophylaxis Regimen: Total Risk Factor Score Risk Level Prophylaxis Regimen 0-1 Low Early ambulation 2 Moderate Order ONE of the following: *Sequential Compression Device (SCD) *Heparin 5000 units SQ BID 3-4 Higher Order ONE of the following medications: *Heparin 5000 units SQ TID *Enoxaparin/Lovenox 40 mg SQ daily (WT < 150 kg, CrCl > 30 mL/min) *Enoxaparin/Lovenox 30 mg SQ daily (WT < 150 kg, CrCl > 10-29 mL/min) *Enoxaparin/Lovenox 30 mg SQ BID (WT < 150 kg, CrCl > 30 mL/min) AND/OR *Sequential Compression Device (SCD) 5 or more Highest Order ONE of the following medications: *Heparin 5000 units SQ TID (Preferred with Epidurals) *Enoxaparin/Lovenox 40 mg SQ daily (WT < 150 kg, CrCl > 30 mL/min) *Enoxaparin/Lovenox 30 mg SQ daily (WT < 150 kg, CrCl > 10-29 mL/min) *Enoxaparin/Lovenox 30 mg SQ BID (WT < 150 kg, CrCl > 30 mL/min) AND *Sequential Compression Device (SCD) Assessment and Plan - Assessment (1) Schizoaffective disorder Code(s): F25.9 - Schizoaffective disorder, unspecified Status: Acute (2) Encephalopathy Code(s): G93.40 - Encephalopathy, unspecified Status: Acute (3) YOHANA (acute kidney injury) Code(s): N17.9 - Acute kidney failure, unspecified Status: Acute (4) Rhabdomyolysis Code(s): M62.82 - Rhabdomyolysis Status: Acute - Plan A/P: 1. Encephalopathy: acute episode of AMS w/ combative/aggressive behavior, likely related to underlying Schizoaffective D/o and non-compliance w/ medications. CT Head w/ no acute findings, possible NPH, images reviewed. Admit for Observation, Neuro Checks, Consult Neurology if no improvement. Urine Drug Screen negative, Alcohol negative. 2. Schizoaffective Disorder: h/o Psych admit 01/27/18 for Brief Psychotic Episode, non-compliant w/ medications x1 wk per report, s/p Zyprexa in ER w/ improvement. Consult Psych for further eval/recommendations. 3. YOHANA: Creatinine 1.75, previously 0.92 on 01/23/18, U/a negative for UTI, IVF for hydration, monitor I/O, repeat labs in am 4. Rhabdomyolysis: CPK 872, IVF for hydration, repeat CPK for trend. 5. DVT Prophylaxis: SCD/Teds 6. Social work for d/c planning as needed. 7. Case discussed w/ ER physician at length, labs/records/imaging reviewed by me
[2018-08-24 23:13] LABS: Opiate Screen,Urine Neg (Neg)
[2018-08-24] MEDS: Sod Chloride 0.9% Inj 1,000 ML IV.CONT SCH (23:45)
[2018-08-25 03:44] VITALS: RESP 16
[2018-08-25 04:59] LABS: Alanine Aminotransferase 18 U/L (10-53); Albumin 3.2 g/dL (3.4-5.0); Alkaline Phosphatase 68 U/L (45-117); Anion Gap 10 meq/L (5-15); Aspartate Aminotransferase 36 U/L (15-37); Blood Urea Nitrogen 18 mg/dL (7-18); Calcium 7.8 mg/dL (8.5-10.1); Carbon Dioxide 21.7 meq/L (21.0-32.0); Chloride 111 meq/L (98-107); Creatine Kinase 689 U/L (26-192); Glomerular Filtration Rate 58 mL/min (>89); Glucose,Random 71 mg/dL (74-106); Potassium 4.1 meq/L (3.5-5.1); Sodium 143 meq/L (136-145); Total Protein 7.3 g/dL (6.4-8.2); Troponin I 0.09 ng/mL (0.02-0.05)
[2018-08-25 05:17] LABS: CKMB Percent 0.9 % (0.0-4.0); Creatine Kinase MB 6.4 ng/mL (0.5-3.6)
[2018-08-25 05:54] LABS: Baso % (Auto) 0.5 % (0.0-2.0); Eos % (Auto) 0.6 % (0.0-4.0); Hematocrit 33.3 % (35.0-46.0); Hemoglobin 10.7 gm/dL (11.6-15.3); Lymph # (Auto) 1.9 th/mm3 (1.0-4.8); Lymph % (Auto) 40.4 % (9.0-44.0); Mean Corpuscular HGB Conc 32.1 % (32.0-36.0); Mean Corpuscular Hemoglobin 30.5 pg (27.0-34.0); Mean Corpuscular Volume 95.1 fL (80.0-100.0); Mean Platelet Volume 7.3 fL (7.0-11.0); Mono # (Auto) 0.6 th/mm3 (0.0-0.9); Mono % (Auto) 12.3 % (0.0-8.0); Neut # (Auto) 2.2 th/mm3 (1.8-7.7); Neut % (Auto) 46.2 % (16.0-70.0); Platelet Count 177 th/mm3 (150-450); Red Cell Distribution Width 15.5 % (11.6-17.2); White Blood Count 4.7 th/mm3 (4.0-11.0)
[2018-08-25] MEDS: Senna/Docusate Sodium 8.6/50 MG Tablet PO SCH ×2 (09:33→09:37)
[2018-08-25] MEDS: Sod Chloride 0.9% Inj 1,000 ML IV.CONT SCH (09:34)
--- NOTE | 2018-08-25 10:01 | P.PN ---
Subjective Interval history: The patient is in bed she appears to not acute distress at this time. Says she is not eating because the food is not delivered to her. No nausea or vomiting no diarrhea constipation. No fever or chills. Says she had a bowel movement the morning. Denies any muscle pain or abdominal cramps. Encourage p.o. intake and hydration. Physical Exam Vital signs: Vital Signs 08/24/18 21:35 08/24/18 22:30 08/24/18 22:52 Temperature 98.9 F Pulse Rate 117 H 98 H 72 Respiratory Rate 18 16 Blood Pressure 148/106 H 154/89 H Pulse Oximetry 100 96 08/25/18 00:00 08/25/18 00:03 08/25/18 03:36 Temperature 98.8 F Pulse Rate 78 74 82 Respiratory Rate 16 18 16 Blood Pressure 140/85 175/90 H 189/94 H Pulse Oximetry 93 L 97 96 Intake & Output 08/24/18 08/25/18 08/25/18 18:59 06:59 18:59 Intake Total 1000 / 1000 881 / 881 Balance 1000 / 1000 881 / 881 Weight 61.23 kg Intake: IV 1000 / 1000 881 / 881 NS Inj 1,000 ML @ 100 mls/hr IV 881 / 881 .CONT .Q10H ELANA Rx#:[id number] NS Inj 1,000 ML @ Wide Open IV. 1000 / 1000 SIG BOLUS ONE Rx#:[id number] Oral 0 / 0 0 / 0 Other: # Urine Diapers 1 1 Weight On Admission 61.235 kg Narrative: GENERAL: Elderly female, awake and alert, appears in nad. CARDIOVASCULAR: Regular rate and rhythm. No obvious murmurs to auscultation. No chest tenderness to palpation. RESPIRATORY: No obvious rhonchi or wheezing. Clear to auscultation. Breath sounds equal bilaterally. GASTROINTESTINAL: Abdomen soft, non-tender, nondistended. BS normal. MUSCULOSKELETAL: Extremities without clubbing, cyanosis, or edema. No obvious deformities. NEUROLOGICAL: Lethargic after medication. No focal neurologic deficits. Moving both upper and lower extremities spontaneously. PSYCHIATRIC: Appropriate mood and affect. Insight and judgment normal. - Urinary Catheter Management Straight Cath placed during this visit: yes Reason for continuing: Not indwelling catheter Insertion date: 08/24/18 Insertion time: 22:29 Results - Labs CBC & Chem 7: 08/25/18 05:40 08/25/18 04:00 Laboratory Results - last 24 hr 08/24/18 08/24/18 08/24/18 21:40 21:40 21:40 WBC 5.5 RBC 4.27 Hgb 13.0 Hct 40.8 MCV 95.4 MCH 30.4 MCHC 31.9 L RDW 15.7 Plt Count 228 MPV 7.3 Neut % (Auto) 49.1 Lymph % (Auto) 40.0 Emery % (Auto) 9.9 H Eos % (Auto) 0.5 Baso % (Auto) 0.5 Neut # (Auto) 2.7 Lymph # (Auto) 2.2 Emery # (Auto) 0.5 Eos # (Auto) 0.0 Baso # (Auto) 0.0 WBC Differential . Differential Comment Auto diff final Sodium 134 L Potassium 4.4 Chloride 102 Carbon Dioxide 17.7 L Anion Gap 14 BUN 19 H Creatinine 1.75 H Estimated GFR 35 L Random Glucose 99 Calcium 9.1 Magnesium 1.8 Total Bilirubin 0.4 AST 52 H ALT 26 Alkaline Phosphatase 89 Ammonia 47 H Total Creatine Kinase CK-MB (CK-2) CK-MB (CK-2) % Troponin I Total Protein 9.6 H Albumin 4.1 TSH 0.687 Urine Color Urine Clarity Urine pH Ur Specific [place] Urine Protein Urine Glucose (UA) Urine Ketones Urine Occult Blood Urine Nitrate Urine Bilirubin Urine Urobilinogen Ur Leukocyte Esterase Urine RBC Urine WBC Ur Squamous Epith Cells Hyaline Casts Urine Mucus Micro UA Comment Ur Microscopic Review Urine Culture Comments Urine Opiates Screen Ur Barbiturates Screen Ur Amphetamines Screen U Benzodiazepines Scrn Urine Cocaine Screen U Cannabinoids Screen Serum Alcohol Less than 3 08/24/18 08/24/18 08/24/18 21:40 21:40 22:05 WBC RBC Hgb Hct MCV MCH MCHC RDW Plt Count MPV Neut % (Auto) Lymph % (Auto) Emery % (Auto) Eos % (Auto) Baso % (Auto) Neut # (Auto) Lymph # (Auto) Emery # (Auto) Eos # (Auto) Baso # (Auto) WBC Differential Differential Comment Sodium Potassium Chloride Carbon Dioxide Anion Gap BUN Creatinine Estimated GFR Random Glucose Calcium Magnesium Total Bilirubin AST ALT Alkaline Phosphatase Ammonia Total Creatine Kinase 872 H CK-MB (CK-2) 8.2 H CK-MB (CK-2) % 0.9 Troponin I 0.07 H Total Protein Albumin TSH Urine Color Urine Clarity Urine pH Ur Specific [place] Urine Protein Urine Glucose (UA) Urine Ketones Urine Occult Blood Urine Nitrate Urine Bilirubin Urine Urobilinogen Ur Leukocyte Esterase Urine RBC Urine WBC Ur Squamous Epith Cells Hyaline Casts Urine Mucus Micro UA Comment Ur Microscopic Review Urine Culture Comments Urine Opiates Screen Neg Ur Barbiturates Screen Neg Ur Amphetamines Screen Neg U Benzodiazepines Scrn Neg Urine Cocaine Screen Neg U Cannabinoids Screen Neg Serum Alcohol 08/24/18 08/25/18 08/25/18 22:05 04:00 05:40 WBC 4.7 RBC 3.50 L Hgb 10.7 L D Hct 33.3 L MCV 95.1 MCH 30.5 MCHC 32.1 RDW 15.5 Plt Count 177 MPV 7.3 Neut % (Auto) 46.2 Lymph % (Auto) 40.4 Emery % (Auto) 12.3 H Eos % (Auto) 0.6 Baso % (Auto) 0.5 Neut # (Auto) 2.2 Lymph # (Auto) 1.9 Emery # (Auto) 0.6 Eos # (Auto) 0.0 Baso # (Auto) 0.0 WBC Differential . Differential Comment Auto diff final Sodium 143 Potassium 4.1 Chloride 111 H D Carbon Dioxide 21.7 Anion Gap 10 BUN 18 Creatinine 1.11 H Estimated GFR 58 L Random Glucose 71 L Calcium 7.8 L D Magnesium Total Bilirubin 0.2 AST 36 ALT 18 Alkaline Phosphatase 68 Ammonia Total Creatine Kinase 689 H CK-MB (CK-2) 6.4 H CK-MB (CK-2) % 0.9 Troponin I 0.09 H Total Protein 7.3 D Albumin 3.2 L D TSH Urine Color Yellow Urine Clarity Clear Urine pH 5.0 Ur Specific [place] 1.027 Urine Protein 100 H Urine Glucose (UA) Negative Urine Ketones 20 Urine Occult Blood Negative Urine Nitrate Negative Urine Bilirubin Negative Urine Urobilinogen 2.0 H Ur Leukocyte Esterase Negative Urine RBC 1 Urine WBC 2 Ur Squamous Epith Cells 1 Hyaline Casts 5 Urine Mucus Few H Micro UA Comment Cath-culture not ind Ur Microscopic Review Not Reportable Urine Culture Comments Cath-cult not ind Urine Opiates Screen Ur Barbiturates Screen Ur Amphetamines Screen U Benzodiazepines Scrn Urine Cocaine Screen U Cannabinoids Screen Serum Alcohol - Imaging Impressions Chest X-Ray 08/24/18 21:38 CONCLUSION: 1. Suggestion of a left mastectomy with axillary chayito dissection. 2. No acute cardiopulmonary process. Head CT 08/24/18 21:38 CONCLUSION: 1. Stable chronic changes with ventricular prominence out of proportion to the degree of cortical atrophy. In the appropriate clinical setting, findings could represent normal pressure hydrocephalus. 2. Severe but stable periventricular small vessel ischemic demyelination. 3. Nothing acute. . Assessment and Plan - Assessment (1) Schizoaffective disorder Code(s): F25.9 - Schizoaffective disorder, unspecified Status: Acute (2) Encephalopathy Code(s): G93.40 - Encephalopathy, unspecified Status: Acute (3) YOHANA (acute kidney injury) Code(s): N17.9 - Acute kidney failure, unspecified Status: Acute (4) Rhabdomyolysis Code(s): M62.82 - Rhabdomyolysis Status: Acute - Plan 1. Encephalopathy: acute episode of AMS w/ combative/aggressive behavior, likely related to underlying Schizoaffective D/o and non-compliance w/ medications. CT Head w/ no acute findings, possible NPH, images reviewed. Admit for Observation, Neuro Checks, Consult Neurology if no improvement. Urine Drug Screen negative, Alcohol negative. 2. Schizoaffective Disorder: h/o Psych admit 01/27/18 for Brief Psychotic Episode, non-compliant w/ medications x1 wk per report, s/p Zyprexa in ER w/ improvement. Consult Psych for further eval/recommendations. 3. YOHANA: Creatinine 1.75, previously 0.92 on 01/23/18, U/a negative for UTI, IVF for hydration, monitor I/O, Kidney function improved significantly and almost at baseline. CPK improved 4. Rhabdomyolysis: CPK 872, IVF for hydration, repeat CPK, trending down. Patient asymptomatic. DVT Prophylaxis: SCD/Teds CM consulted for d/c planning as needed. Discussed with the patient, nurse, Dr Jacob REGALADO plan Patient is accepted to med psych Patient kidney function is almost at baseline to continue IVF and encourage Po intake and hydration DC to [facility] psych in medically stable conditin To follow-up with PCP and consultants Diet healthy heart diet as tolerated Activity ad prasanna. as tolerated Medications per medication reconciliation's restart home medications as appropriate
[2018-08-25 11:24] LABS: Troponin I 0.05 ng/mL (0.02-0.05)
[2018-08-25 11:48] LABS: CKMB Percent 0.8 % (0.0-4.0); Creatine Kinase MB 6.3 ng/mL (0.5-3.6)
[2018-08-25 11:57] VITALS: BP 168/87; PULSE 83; TEMP 98.6; O2SAT 99
--- NOTE | 2018-08-25 12:53 | ECG ---
Date Performed: 08/24/2018 Time Performed: 21:41:31 PTAGE: 73 years EKG: SINUS TACHYCARDIA ABNORMAL RHYTHM ECG Rate has increased significantly since prior tracing Clinical correlation is recommended PREVIOUS TRACING : 01/23/18 DOCTOR: Teddy Blancas Interpretating Date/Time 08/25/2018 12:53:28
--- NOTE | 2018-08-25 12:55 | ECG ---
Date Performed: 08/25/2018 Time Performed: 03:33:42 PTAGE: 73 years EKG: Sinus rhythm WITH OCCASIONAL SUPRAVENTRICULAR PREMATURE COMPLEXES BORDERLINE LEFT AXIS DEVIATION NONSPECIFIC T-WA VE ABNORMALITY BORDERLINE ECG Compared to PREVIOUS TRACING rate has slowed with frequent supraventricular ectopy. Continued correl ation recommended. PREVIOUS TRACIN01/23/2018 10.48 DOCTOR: Teddy Blancas Interpretating Date/Time 08/25/2018 12:54:11
== END 2018-08-25 13:42 ==
LOC: NEPE 21:31 → NEDA 21:31 → NEPFCDU 08-25 00:23 → NEDH 08-25 09:52 → NEPFCDU 08-25 09:53
PROVIDERS: ADMIT Hospitalist; ATTEND Hospitalist

== ENCOUNTER 2018-08-25 12:04 | Inpatient (IN) ==
[2018-08-25] MEDS ORDERED: Bisacodyl 10 MG Supp RECTAL PRN (13:40)
[2018-08-25] MEDS ORDERED: Aluminum/Magnesium/Simethacone Susp 30 ML UDC PO PRN (13:40)
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
[2018-08-25] MEDS: QUEtiapine 25 MG Tablet PO SCH ×2 (17:26→20:53)
[2018-08-25] MEDS: Senna/Docusate Sodium 8.6/50 MG Tablet PO SCH (20:51)
[2018-08-26] MEDS: amLODIPine 5 MG Tablet PO SCH (09:33)
[2018-08-26] MEDS: QUEtiapine 25 MG Tablet PO SCH ×2 (09:33→21:29)
[2018-08-26] MEDS: Senna/Docusate Sodium 8.6/50 MG Tablet PO SCH ×2 (09:33→21:29)
[2018-08-26 09:55] LABS: Calcium 8.9 mg/dL (8.5-10.1); Carbon Dioxide 24.9 meq/L (21.0-32.0); Chol/HDL Ratio 2.48 Ratio; HDL Cholesterol 72.1 mg/dL (40.0-60.0); Potassium 3.3 meq/L (3.5-5.1)
--- NOTE | 2018-08-26 14:51 | P.CON ---
History of Present Illness Primary Care Provider: UNKNOWN Chief Complaint: Mrs. Portillo is a 72 year old female. She is admitted due to an exacerb History of Present Illness: Mrs. Mackenzie is a 72 year old female with medical problems as listed bellow. She is admitted due to an exacerbation of her schizoaffective disorder. She also has underlying depression and anxiety. When seen she appears comfortable and in no distress. A review of her blood work shows a low TSH and low potassium level. The patient complains of no associated symptoms other than chronic fatigue. However the patient feel better. No other complaints. No chest pain. No nausea or vomiting. She reports that she has a past history of thyroid problems but is currently not listed as taking any thyroid supplementations or treatments. Past Medical History Osteoarthritis History of breast cancer Hyperlipidemia Gastroesophageal reflux disease Headache Hypertension Rheumatoid arthritis Depression Anxiety Schizoaffective disorder Past Surgical History Hernia repair Left mastectomy Endoscopy Family History Patient does not know her past medical family history. Social History Patient smokes about one half pack per day Occasional alcohol use Illicit drug abuse Review of Systems All other systems reviewed negative except as stated in HPI [facility] - History History Provided By: Medical Record, [employer] Hostess / EMT - Medical History Medical History: Medical History (Last Reviewed 08/26/18 @ 16:18 by Bernie Ragland MD) Bipolar disorder Schizophrenia Surgical history unknown - Social History I have reviewed the patient's Social History: Yes - Tobacco History Smoking Status: Unknown if ever smoked - Alcohol History How Often Do You Have a Drink Containing Alcohol: Unable to Obtain - Substance Use History Substance History: Unable to Obtain Medications and Allergies Active Medications: Active Medications Al Hydrox/Mg Hydrox/Simethicone (Mag-Al Plus Susp Liq) 30 ml PO Q6H PRN PRN Reason: DYSPEPSIA Al Hydroxide/Mg Hydroxide (Milk Of Magnesia Liq) 30 ml PO Q12H PRN PRN Reason: Mild Constipation Amlodipine Besylate (Norvasc) 5 mg PO DAILY ELANA Last Admin: 08/26/18 09:33 Dose: 5 mg Bisacodyl (Dulcolax Supp) 10 mg RECTAL DAILY PRN PRN Reason: SEVERE CONSITIPATION Clonidine HCl (Catapres) 0.2 mg PO Q8HR PRN PRN Reason: HTN Last Admin: 08/25/18 16:29 Dose: 0.2 mg Lactulose (Lactulose Liq) 30 ml PO DAILY PRN PRN Reason: SEVERE CONSITIPATION Quetiapine Fumarate (Seroquel) 25 mg PO BID [facility] Last Admin: 08/26/18 09:33 Dose: 25 mg Senna/Docusate Sodium (Erendira-Colace) 1 tab PO BID [facility] Last Admin: 08/26/18 09:33 Dose: 1 tab Sennosides (Senokot) 17.2 mg PO Q12H PRN PRN Reason: Moderate Constipation Allergies Allergy/AdvReac Type Severity Reaction Status Date / Time No Known Allergies Allergy Unknown Uncoded 01/21/18 21:45 Home Medications Medication Instructions Recorded Confirmed Type Unable to Obtain Home Meds 08/24/18 08/24/18 History Physical Exam Vital signs: Vital Signs 08/25/18 16:00 08/25/18 17:32 08/26/18 05:17 Temperature 97.2 F L 97.7 F Pulse Rate 71 62 Respiratory Rate 17 15 Blood Pressure 212/96 H 176/84 H 165/93 H Pulse Oximetry 98 97 Intake & Output 08/25/18 08/26/18 08/26/18 18:59 06:59 18:59 Intake Total 480 / 480 240 / 240 720 / 720 Balance 480 / 480 240 / 240 720 / 720 Weight 55 kg Intake: Oral 480 / 480 240 / 240 720 / 720 Other: # Voids 1 1 Weight On Admission 55 kg Narrative: GENERAL: Pleasant and conversant AA female, in the chair, appears in NAD, A&Ox3 HEAD: Normocephalic. NECK: Supple, trachea midline. No lymphadenopathy. EYES: No scleral icterus. No injection or drainage. CARDIOVASCULAR: Regular rate and rhythm without murmurs, gallops, or rubs. RESPIRATORY: Breath sounds equal bilaterally. No accessory muscle use. GASTROINTESTINAL: Abdomen soft, non-tender, nondistended. MUSCULOSKELETAL: No cyanosis, or edema. SKIN: Warm and dry. NEURO: No focal neurological deficits. Assessment and Plan - Plan 72-year-old female admitted to psychiatry secondary to exacerbation of schizoaffective disorder. Low TSH low T3, but normal T4, consider repeating TSH after this episode resolves as OP Consider treatment based on the results Hypokalemia Replacement provided Monitor and replace as needed Schizoaffective disorder Depression Anxiety Treatment per psychiatry team Osteoarthritis Rheumatoid arthritis Hypertension Headache history Gastroesophageal reflux disease Hyperlipidemia Breast cancer history No change to baseline treatments DVT prophylaxis Patient is ambulatory, none Discussed Condition With: patient, nurse
--- NOTE | 2018-08-26 19:42 | P.PNPSY ---
Subjective Remarks: Patient seen for follow-up, chart reviewed. Discussion with nursing staff reported that patient fell yesterday with no injuries, alert and oriented x2, receive ETO in the ED for continues to be alert and oriented x2, having poor recollection of events prior to her admission stating "no one had. Patient states that she reports her knees wanting to take her into the bathroom" she reports her mood as being "fine" stating that she slept little less evening and did not want to be in the hospital. She recalls having been hospitalized here to this facility several months ago. Patient states she lives with her sister but feels that her sister is jealous of her. ED note reports that patient had endorsed patient denies at this time. Patient denies any SI or HI. Review of Systems All other systems reviewed negative except as stated in HPI Mental Status Examination Appearance: Appropriate Consciousness: Alert Orientation: x4 Motor Activity: Normal gait Speech: Unremarkable Language: Adequate Fund of Knowledge: Adequate Attention and Concentration: Adequate Memory: Unremarkable Mood: Appropriate Affect: Appropriate Thought Process & Associations: Intact, Other ([place]) Thought Content: Hallucinations (Denies at this time) Hallucination Type: Auditory Delusion Type: Paranoid Suicidal Ideation: No Suicidal Plan: No Suicidal Intention: No Homicidal Ideation: No Homicidal Plan: No Homicidal Intention: No Insight: Poor Judgment: Poor Assessment and Plan - Assessment (1) Schizoaffective disorder Code(s): F25.9 - Schizoaffective disorder, unspecified Status: Acute - Plan Plan: Patient noted to be confused, not recalling events prior to admission. Patient noted to have some paranoid ideations but denying any perceptional service at this time. We will continue current treatment. Continue to monitor mood and behavior. Discharge planning in progress. Justification for Continued Inpatient Stay: At risk of further decompensation at lower level care.
[2018-08-26 21:26] LABS: Hemoglobin A1c 6.2 % (4.3-6.0)
[2018-08-27] MEDS: QUEtiapine 25 MG Tablet PO SCH ×2 (08:22→20:36)
[2018-08-27] MEDS: amLODIPine 5 MG Tablet PO SCH (08:22)
[2018-08-27] MEDS: Senna/Docusate Sodium 8.6/50 MG Tablet PO SCH ×3 (08:22→20:38)
--- NOTE | 2018-08-27 12:08 | P.PN ---
Subjective Interval history: Patient is eating feels much better today. No change in vision, motor or sensory deficit. No headache. No cp, sob, palpitations. BP improved but still into a higher side. BP was noted elevated and is started on amlodipine, BP is better controlled. Amlodipine increased to 10 mg po daily. If SBP< 160 patient can be DC from hospitalist standpoint, to follow up as OP with PCP and consultants. Physical Exam Vital signs: Vital Signs 08/27/18 05:48 Temperature 98.2 F Pulse Rate 64 Respiratory Rate 16 Blood Pressure 154/76 H Pulse Oximetry 98 Intake & Output 08/26/18 08/27/18 08/27/18 18:59 06:59 18:59 Intake Total 1200 / 1200 480 / 480 Balance 1200 / 1200 480 / 480 Intake: Oral 1200 / 1200 480 / 480 Other: # Voids 1 # Bowel Movements 1 Narrative: GENERAL: Pleasant and conversant AA female, in the chair, appears in NAD, A&Ox3 HEAD: Normocephalic. NECK: Supple, trachea midline. No lymphadenopathy. EYES: No scleral icterus. No injection or drainage. CARDIOVASCULAR: Regular rate and rhythm without murmurs, gallops, or rubs. RESPIRATORY: Breath sounds equal bilaterally. No accessory muscle use. GASTROINTESTINAL: Abdomen soft, non-tender, nondistended. MUSCULOSKELETAL: No cyanosis, or edema. SKIN: Warm and dry. NEURO: No focal neurological deficits. Results - Labs CBC & Chem 7: 08/26/18 08:45 Laboratory Results - last 24 hr 08/26/18 08:45 Hemoglobin A1c 6.2 H Assessment and Plan - Plan 72-year-old female admitted to psychiatry secondary to exacerbation of schizoaffective disorder. Hypertension Started amlodipine 5 mg po . Will give additional 5 mg as patient still with elevated BP. Patient can be DC on amlodipine 10 mg po daily if SBP is < 160 . Monitor BP and adjust meds as appropriate. Patient to follow up as OP with PCP to monitor BP and adjust meds as need. Low TSH low T3, but normal T4, consider repeating TSH after this episode resolves as OP Consider treatment based on the results Hypokalemia Replacement provided Monitor and replace as needed Schizoaffective disorder Depression Anxiety Treatment per psychiatry team Osteoarthritis Rheumatoid arthritis Hypertension Headache history Gastroesophageal reflux disease Hyperlipidemia Breast cancer history No change to baseline treatments DVT prophylaxis Patient is ambulatory, none BP was noted elevated and is started on amlodipine, BP is better controlled. Amlodipine increased to 10 mg po daily. If SBP< 160 patient can be DC from hospitalist standpoint, to follow up as OP with PCP and consultants. Discussed with the patient, nurse
[2018-08-27] MEDS ORDERED: amLODIPine 5 MG Tablet PO ONE (12:09)
--- NOTE | 2018-08-27 16:32 | P.PNPSY ---
Subjective Remarks: Patient was seen and case discussed with nursing. Patient continues to improve. She is compliant with her medications and behaving well on the unit. No psychotic symptoms elicited today. Nursing has not noticed her talking to herself or preoccupied with other things. Mental Status Examination Appearance: Appropriate Consciousness: Alert Orientation: x4 Motor Activity: Normal gait Speech: Unremarkable Language: Adequate Fund of Knowledge: Adequate Attention and Concentration: Adequate Memory: Unremarkable Mood: Appropriate Affect: Appropriate Thought Process & Associations: Intact, Other ([place]) Thought Content: Hallucinations (Denies at this time) Hallucination Type: Auditory Delusion Type: Paranoid Suicidal Ideation: No Suicidal Plan: No Suicidal Intention: No Homicidal Ideation: No Homicidal Plan: No Homicidal Intention: No Insight: Poor Judgment: Poor Assessment and Plan - Assessment (1) Schizoaffective disorder Code(s): F25.9 - Schizoaffective disorder, unspecified Status: Acute - Plan Plan: Continue current treatment plan Justification for Continued Inpatient Stay: Patient would decompensate in a less restrictive setting
[2018-08-28] MEDS: QUEtiapine 25 MG Tablet PO SCH ×2 (08:20→20:34)
[2018-08-28] MEDS: Senna/Docusate Sodium 8.6/50 MG Tablet PO SCH ×2 (08:20→20:34)
[2018-08-28] MEDS: amLODIPine 10 MG Tablet PO SCH (08:20)
--- NOTE | 2018-08-28 11:15 | P.PNPSY ---
Subjective Remarks: Patient was seen and case discussed with nursing. Patient remains mildly confused. She believes that other people are stealing and taking her diapers. Behaving well on the unit. No agitation noted Mental Status Examination Appearance: Appropriate Consciousness: Alert Orientation: x4 Motor Activity: Normal gait Speech: Unremarkable Language: Adequate Fund of Knowledge: Adequate Attention and Concentration: Adequate Memory: Unremarkable Mood: Appropriate Affect: Appropriate Thought Process & Associations: Intact, Other ([place]) Thought Content: Hallucinations (Denies at this time) Hallucination Type: Auditory Delusion Type: Paranoid Suicidal Ideation: No Suicidal Plan: No Suicidal Intention: No Homicidal Ideation: No Homicidal Plan: No Homicidal Intention: No Insight: Poor Judgment: Poor Assessment and Plan - Assessment (1) Schizoaffective disorder Code(s): F25.9 - Schizoaffective disorder, unspecified Status: Acute - Plan Plan: Continue current treatment plan Justification for Continued Inpatient Stay: Patient would decompensate in a less restrictive setting
--- NOTE | 2018-08-28 14:02 | P.PN ---
Subjective Interval history: In nad, ambulating in the hallways with a walker. No cp, sob, n/v/d/c. BP is better controlled. Physical Exam Vital signs: Vital Signs 08/27/18 19:23 08/28/18 06:08 Temperature 98.2 F 98.1 F Pulse Rate 60 77 Respiratory Rate 16 16 Blood Pressure 145/85 H 143/82 H Pulse Oximetry 95 98 Intake & Output 08/27/18 08/28/18 08/28/18 18:59 06:59 18:59 Intake Total 720 / 720 120 / 120 Balance 720 / 720 120 / 120 Intake: Oral 720 / 720 120 / 120 Other: # Voids 2 4 Narrative: GENERAL: Pleasant and conversant AA female, appears in NAD, A&Ox3 CARDIOVASCULAR: Regular rate and rhythm without murmurs, gallops, or rubs. RESPIRATORY: Breath sounds equal bilaterally. No accessory muscle use. GASTROINTESTINAL: Abdomen soft, non-tender, nondistended. MUSCULOSKELETAL: No cyanosis, or edema. SKIN: Warm and dry. NEURO: No focal neurological deficits. Results - Labs CBC & Chem 7: 08/26/18 08:45 Assessment and Plan - Plan 72-year-old female admitted to psychiatry secondary to exacerbation of schizoaffective disorder. Hypertension Started amlodipine 5 mg po . Will give additional 5 mg as patient still with elevated BP. Patient can be DC on amlodipine 10 mg po daily. Prescription printed. To follow up s Op with PCP. Monitor BP and adjust meds as appropriate. Patient to follow up as OP with PCP to monitor BP and adjust meds as need. Low TSH low T3, but normal T4, consider repeating TSH after this episode resolves as OP Consider treatment based on the results Hypokalemia Replacement provided Monitor and replace as needed Schizoaffective disorder Depression Anxiety Treatment per psychiatry team Osteoarthritis Rheumatoid arthritis Hypertension Headache history Gastroesophageal reflux disease Hyperlipidemia Breast cancer history No change to baseline treatments DVT prophylaxis Patient is ambulatory, none BP was noted elevated and is started on amlodipine, BP is better controlled. Amlodipine increased to 10 mg po daily. If SBP< 160 patient can be DC from hospitalist standpoint, to follow up as OP with PCP and consultants. Discussed with the patient, nurse
[2018-08-29 05:12] VITALS: BP 162/81; PULSE 61; RESP 15; TEMP 98.5; O2SAT 96
[2018-08-29] MEDS: QUEtiapine 25 MG Tablet PO SCH (08:57)
[2018-08-29] MEDS: amLODIPine 10 MG Tablet PO SCH (08:57)
[2018-08-29] MEDS: Senna/Docusate Sodium 8.6/50 MG Tablet PO SCH ×2 (08:57→08:59)
--- NOTE | 2018-08-29 10:12 | P.PN ---
Subjective Interval history: Patient is in bed she does not appear in acute distress. No headaches, change in vision or focal deficit. Denies any chest pain or shortness of breath she is ambulating with a walker without any problems. No concerns at this time. BP still elevated start lisinopril 5 mg po daily Physical Exam Vital signs: Vital Signs 08/28/18 18:57 08/29/18 05:11 Temperature 98.4 F 98.5 F Pulse Rate 87 61 Respiratory Rate 16 15 Blood Pressure 163/83 H 162/81 H Pulse Oximetry 97 96 Intake & Output 08/28/18 08/29/18 08/29/18 18:59 06:59 18:59 Intake Total 740 / 740 340 / 340 Balance 740 / 740 340 / 340 Intake: Oral 740 / 740 240 / 240 Oral Supplement 100 / 100 Other: # Voids 2 2 Narrative: GENERAL: Pleasant and conversant AA female, appears in NAD, A&Ox3 CARDIOVASCULAR: Regular rate and rhythm without murmurs, gallops, or rubs. RESPIRATORY: Breath sounds equal bilaterally. No accessory muscle use. GASTROINTESTINAL: Abdomen soft, non-tender, nondistended. MUSCULOSKELETAL: No cyanosis, or edema. SKIN: Warm and dry. NEURO: No focal neurological deficits. Results - Labs CBC & Chem 7: 08/26/18 08:45 Assessment and Plan - Plan 72-year-old female admitted to psychiatry secondary to exacerbation of schizoaffective disorder. Hypertension Started amlodipine 5 mg po . Will give additional 5 mg as patient still with elevated BP. Patient can be DC on amlodipine 10 mg po daily. Prescription printed. To follow up s Op with PCP. BP still elevated started lisinopril 5 mg po daily Monitor BP and adjust meds as appropriate. Patient to follow up as OP with PCP to monitor BP and adjust meds as need. Low TSH low T3, but normal T4, consider repeating TSH after this episode resolves as OP Consider treatment based on the results Hypokalemia Replacement provided Monitor and replace as needed Schizoaffective disorder Depression Anxiety Treatment per psychiatry team Osteoarthritis Rheumatoid arthritis Hypertension Headache history Gastroesophageal reflux disease Hyperlipidemia Breast cancer history No change to baseline treatments DVT prophylaxis Patient is ambulatory, none BP was noted elevated and is started on amlodipine, BP is better controlled. Amlodipine increased to 10 mg po daily. Added lisinopril 5 mg po daily. If SBP < 160 patient can be DC from hospitalist standpoint, to follow up as OP with PCP and consultants. Discussed with the patient, nurse
[2018-08-29] MEDS ORDERED: Lisinopril 5 MG Tablet PO SCH (10:15)
--- NOTE | 2018-08-29 10:20 | P.DCO ---
- Physical Therapy Order: Evaluate and treat - Occupational Therapy Order: Evaluate and treat - Home Health Nursing Order: Medical education, Medication education-adverse effect - Home Health Aide Order: To assist in: Bathing and personal care, mining technician and meal prep - Field Marketing Lead Order: To evaluate: Support services - Case Management Consult Yes - Certification I have seen patient Shirlene Mackenzie on 08/29/18. My clinical findings support the need for the requested home health care services because: Limited mobility due to disease progression, Deconditioned with increased weakness, Limited ability to care for self, High risk of falls I certify that my clinical findings support that this patient is homebound because: Unsteady gait/balance
--- NOTE | 2018-08-29 12:35 | P.TTN ---
- Patient Problems Problems: 1. Discharge planning 2. Medication compliance 3. Knowledge deficit 4. Lack of coping skills - Progress Toward Goals Provider Present: Dr. Sharif Orozco (Med compliant) Psychiatric Counselors Present: RAPHAEL Mejia (Counselor will touch base with family today to discuss safe discharge plan.) - Documentation Teaching Recipient: Patient
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
== END 2018-08-29 16:15 | disposition home or self-care (01) ==
LOC: H4EA 14:25 → HCPC 08-29 08:57 → H4EA 08-29 09:00
PROVIDERS: ADMIT Student in an Organized Health Care Education/Training Program; ATTEND Student in an Organized Health Care Education/Training Program